=== PATIENT | male | born 1940 ===

== ENCOUNTER 2017-04-16 05:11 | Inpatient (IN) | payer MEDICAID, OTHER ==
[~2017-04-16] VITALS: Ht 172.7 cm; Wt 94.5 kg
[2017-04-16] VITALS (16 sets, daily range): BP systolic 95–153; BP diastolic 50–82
[2017-04-16 09:24] LABS: FIO2 ABG 40; HCO3 ABG 25 mmol/L (21-28); PCO2 ABG 33 mmHg (35-46); PH ABG 7.51 (7.35-7.45); PO2 ABG 74 mmHg (65-108); SAT O2 ABG 96 % (92-99)
--- NOTE | 2017-04-16 09:38 | RAD ---
EXAM: Chest one view. HISTORY: Intubated. COMPARISON: None. FINDINGS: A frontal view of the chest is obtained. An endotracheal tube has its tip 4 cm above the violette. A nasogastric tube has its tip below the inferior margin of the field of view. There are no confluent infiltrates. There is no pneumothorax or pleural effusion. The heart is not enlarged. There is a calcified granuloma on the left. IMPRESSION: 1. No confluent infiltrates.
--- NOTE | 2017-04-16 09:41 | PDOC ---
Provider Note Provider Note [id number] acute resp fail ams cont vent support until more alert ZE ARIZMENDI MD Apr 16, 2017 09:41
[2017-04-16] MEDS ORDERED: MONT10TA9 PO (10:23)
[2017-04-16] MEDS ORDERED: LEVE500T56 PO (10:23)
[2017-04-16] MEDS ORDERED: CETI10TA22 PO (10:23)
[2017-04-16] MEDS ORDERED: DIVA500T2 PO (10:23)
[2017-04-16] MEDS ORDERED: AMLO5TAB2 PO (10:23)
[2017-04-16] MEDS ORDERED: IBUP-1027 PO (10:23)
[2017-04-16] MEDS ORDERED: ALBUTEROL SULFATE 2.5 MG/3 ML NEBU. NEB PRN (11:00)
[2017-04-16] MEDS ORDERED: HYDROcodone/APAP 5/325MG 1 TAB TABLET PO PRN (11:00)
[2017-04-16] MEDS ORDERED: ONDANSETRON PF 4 MG/2 ML VIAL. IV PRN (11:00)
[2017-04-16] MEDS ORDERED: ACETAMINOPHEN 325 MG TABLET. PO PRN (11:00)
--- NOTE | 2017-04-16 11:01 | PDOC1 ---
History and Physical Current Medications Current Medications Current Medications Medications (Trade) Dose Ordered Sig/Abraham Start Time Stop Time Status Last Admin Dose Admin Lorazepam (Ativan) 1 mg PRN Q1HR PRN 04/16/17 09:30 Allergies Allergies Allergies Coded Allergies Type Severity Reaction Last Updated Verified No Known Drug Allergies 04/16/17 No ROS Review of System not able to obtain due to severity. Physical Exam Physical Exam GEN.: on Mechanical ventilation sedated. HEENT: Head is normocephalic, atraumatic NECK: Supple. no JVD LUNGS: Clear to auscultation. normal airflow. HEART: RRR, S1, S2 present. Peripheral pulses intact ABDOMEN: Soft, nontender. Positive bowel sounds. EXTREMITIES: Without any cyanosis. no edema NEUROLOGIC: PSYCHIATRIC: SKIN: no visible rash. Vitals Vitals Vital Signs Date Time Temp Pulse Resp B/P (MAP) Pulse Ox O2 Delivery O2 Flow Rate FiO2 04/16/17 10:00 68 16 133/76 (95) 100 Ventilator 04/16/17 08:10 97.9 97.9 Labs Labs Laboratory Tests Test 04/16/17 09:04 O2 Saturation 96 % (92-99) Arterial Blood pH 7.51 (7.35-7.45) Arterial Blood pCO2 at Patient Temp 33 mmHg (35-46) Arterial Blood pO2 at Patient Temp 74 mmHg (65-108) Arterial Blood HCO3 25 mmol/L (21-28) Arterial Blood Base Excess 3 mmol/L (-3-3) FiO2 40 Laboratory Tests Test 04/16/17 09:04 O2 Saturation 96 % (92-99) Arterial Blood pH 7.51 (7.35-7.45) Arterial Blood pCO2 at Patient Temp 33 mmHg (35-46) Arterial Blood pO2 at Patient Temp 74 mmHg (65-108) Arterial Blood HCO3 25 mmol/L (21-28) Arterial Blood Base Excess 3 mmol/L (-3-3) FiO2 40 VTE Prophylaxis Ordered VTE Prophylaxis Devices: Yes VTE Pharmacological Prophylaxi: No DERIK HESS MD Apr 16, 2017 11:01
--- NOTE | 2017-04-16 11:01 | CONS ---
DATE OF CONSULTATION: 04/16/2017 I was asked to see this 76-year-old gentleman for acute respiratory failure. HISTORY OF PRESENT ILLNESS: The patient is on the ventilator and he is sedated and he is not able to give any information. All of the information was obtained from nursing staff. Apparently, the patient is in long term. He has dementia, Alzheimer's, seizure. He has had mental status changes for the past few days. He was taken to [facility] and was intubated. He was transferred to [facility] for further evaluation. He is currently on the ventilator and he is sedated. In [facility] Emergency Room, the patient's blood pressure was low. The patient was given 3 liters of normal saline. PAST MEDICAL HISTORY: Dementia, Alzheimer's, seizure. ALLERGIES: No known drug allergies. MEDICATIONS: Currently, he is on Versed drip and IV fluid. SOCIAL HISTORY: Not smoking currently. FAMILY HISTORY: Unable to obtain. REVIEW OF SYSTEMS: As mentioned as above. I have discussed the patient with RN and RT. Other systems are otherwise negative. PHYSICAL EXAMINATION: GENERAL: This is a well-developed gentleman. VITAL SIGNS: His O2 saturation on 40% FiO2 is 100%, respiratory rate 14, heart rate 73, blood pressure 137/79. HEENT: Normocephalic, atraumatic. Pupils equal, round, reactive to light. He is orally intubated. Nose is clear. NECK: There is no JVD, lymphadenopathy or thyromegaly. CARDIOVASCULAR: Regular rate and rhythm. PMI is nondisplaced. CHEST: Inspection is normal. LUNGS: Clear to auscultation. There is no wheezing. ABDOMEN: Soft. Bowel sounds are good. There is no mass. EXTREMITIES: There is no edema. LYMPHATICS: There is no lymphadenopathy. NEUROLOGIC: He is sedated. SKIN: Warm. LABORATORY DATA: I reviewed the following lab data. ABG on assist control rate of 14, tidal volume 450, PEEP of 5, FiO2 40%, pH 7.5, pCO2 of 33, pO2 of 74. Chest x-ray shows ET tube is in good position. There is no infiltrate. Rest of the labs are pending. IMPRESSION: 1. Acute respiratory failure, ? etiology. 2. Altered mental status, ? etiology. 3. encephalopathy. 4. Hypotension, ? sepsis. 5. History of seizure disorder. 6. Dementia. 7. Alzheimer's. PLAN AND RECOMMENDATIONS: 1. Titrate FiO2 to keep O2 saturation 94%. 2. Continue ventilator support until the patient is more alert. I did decrease the respiratory rate to 12. 3. Protonix for stress ulcer prophylaxis. 4. Lovenox for DVT prophylaxis. 5. His CT of the head reportedly showed small vessel disease, no acute abnormality. 6. I do recommend panculture, and start Rocephin. May consider Neurology and ID consultation. 7. A.m. ABG and portable chest x-ray. 8. anti sz meds The findings and recommendations were discussed with RN and RT. Thank you very much for allowing me to participate in the care of this very nice gentleman. ZE ARIZMENDI M.D. DR: Robles JOB#: [id number] / [id number] MAGDALENA
[2017-04-16] MEDS ORDERED: DIVALPROEX DELAYED RELEASE 500 MG TABLET.DR. PO SCH (12:00)
[2017-04-16] MEDS ORDERED: levETIRAcetam 500 MG TABLET PO SCH (12:00)
--- NOTE | 2017-04-16 12:38 | HP ---
ADMIT DATE: 04/16/2017 CHIEF COMPLAINT: Altered mental status, hypothermia, bradycardia. HISTORY OF PRESENT ILLNESS: A 76-year-old male patient with prior history of hypertension and dementia, brought to the [facility] ER from [facility] for lethargy, hypothermia, and bradycardia. The patient had a history of seizures, hypertension, dementia, his baseline status is nonverbal; however, he has episodes of agitation. Yesterday, they noted him to have bradycardia, altered loss of consciousness and the patient was cold to touch and decreased response to painful stimuli. Initial DCIS was 6. To protect airway, the patient was intubated and transferred to [facility] for further workup such as Neurology consultation and possible MRI. At the time of my examination this morning, the patient is sedated and intubated and is on mechanical ventilation towards at bedside and discussed with him about his baseline status. PAST MEDICAL HISTORY: Hypertension, dementia, seizures. PAST SURGICAL HISTORY: Not able to obtain. ALLERGIES: NKDA. SOCIAL HISTORY: currently complete his custodial sentences; however, due to his mental status. He is not able to be released from the custodial. REVIEW OF SYSTEMS: Physical exam, please see my electronic H and P. FAMILY HISTORY: Not able to obtain. LABORATORY FINDINGS: CT of the head, no acute finding seen and EKG personally reviewed, sinus bradycardia. ABGs: pH is 7.38, pCO2 32, pO2 is 58 and 21%. Chemistry: BUN is 54, creatinine is 1.1, calcium is 1.24, potassium is 4.5, chloride is 110. Urine drug screen is negative. INR is 1.1, APTT 30. CBC; platelets 78, WBC 2.9, hemoglobin is 11.5, hematocrit is 35.4. ASSESSMENT: 1. Acute metabolic encephalopathy, unclear etiology. ? seizure recurrent. 2. Bradycardia, sinus. 3. Hypothermia, present on admission, dehydration. 4. History of seizures. 5. History of dementia, unknown type. 6. Respiratory failure. PLAN: Currently, the patient is placed in the Critical Care Unit, he is on mechanical ventilation and he is on Versed for sedation. Start him on IV Keppra, consult Neurology. 1. home medications Reviewed and reconciled, his Keppra and valproic will be restarted. 2. Plan to wean off him from sedation and try to extubate if possible. but its difficult today due to his seizure like activity 3. Body temperature has improved. Current temperature is 97.9. 4. No source of infection noted. I will monitor CBC and BMP. 5. Chest x-ray this morning, no infiltrates seen. No obvious source of infection noted and I will appreciate Pulmonology and Neurology recommendations. 6. P.r.n. hydralazine and amlodipine. 7. Prognosis is guarded, as per guards, he does not have any family. d/w RN DERIK HESS MD DR: YUMIKO/huyen JOB#: [id number] / [id number] MAGDALENA
--- NOTE | 2017-04-16 12:49 | ACF ---
Admission Forms Criteria RESPIRATORY FAILURE [facility] Clinical Indications for Admission to Inpatient Care (Place 'X' for any and all applicable criteria): Hospital admission is needed for appropriate care of the patient because of acute respiratory failure or insufficiency as indicated by ANY ONE of the following(1)(2)(3)(4)(5)(6)(7)(8): [X ]I. Mechanical ventilation needed (acute invasive or noninvasive) [ ]II. Severe ventilation deficit as indicated by ANY ONE of the following (9) [ ]a) Respiratory acidosis (pH less than 7.32 and partial pressure of carbon dioxide greater than 40 mm Hg (5.3 kPa)) [ ]b) Partial pressure of carbon dioxide greater than 44 mm Hg (5.9 kPa ) (new) [ ]c) Airflow measurements less than 25% of predicted (eg, peak expiratory flow rate less than 100 L/minute) [ ]d) Forced vital capacity less than 15 mL/kg of ideal body weight, or 50% decrease in vital capacity from baseline [ ]III. Noncardiac pulmonary edema not resolving with rapid emergency treatment (8) [ ]IV. Severe respiratory distress as indicated by ANY ONE of the following: [ ]a) Severe tachypnea (respiratory rate greater than 30, greater than 45 for 6-month-old, greater than 60 for ) [ ]b) Severe hypoxemia (partial pressure of oxygen less than 50 mm Hg ( 6.7 kPa) on greater than 50% oxygen or partial pressure of oxygen to FIO2 ratio less than 200) [ ]c) Mental status deterioration from respiratory disease [ ]V. Airway obstruction or inadequate protection [A](10)(11) The original [employer] content created by [employer] has been revised. The portions of the content which have been revised are identified through the use of italic text or in bold, and [employer] has neither reviewed nor approved the modified material. All other unmodified content is copyright [employer]. Please see references footnoted in the original [employer] edition 2016 Admission Criteria Met?: Yes JORGE LUIS VENEGAS Apr 16, 2017 12:49
[2017-04-16] MEDS: VALPROIC ACID (AS SODIUM SALT) 500 MG in IV NORMAL SALINE 50ML 50 ML IV SCH ×2 (12:53→21:05)
[2017-04-16] MEDS: CETIRIZINE HCL 10 MG TABLET. PO SCH (12:55)
[2017-04-16] MEDS: amLODIPine BESYLATE 5 MG TABLET PO SCH (12:56)
[2017-04-16] MEDS: PANTOPRAZOLE 40 MG TABLET.DR. PO SCH (16:55)
[2017-04-16] MEDS ORDERED: LACOSAMIDE 100 MG in IV NORMAL SALINE 50ML 50 ML IV ONE (17:30)
[2017-04-16] MEDS: MONTELUKAST SODIUM 10 MG TABLET. PO SCH (21:04)
[2017-04-16] MEDS: LACOSAMIDE 100 MG in IV NORMAL SALINE 50ML 50 ML IV SCH (22:58)
[2017-04-17] VITALS (30 sets, daily range): BP systolic 63–144; BP diastolic 44–79
[2017-04-17] MEDS ORDERED: NOREPINEPHRIN PREMIX 250 ML IV PRN (00:45)
[2017-04-17] MEDS ORDERED: MIDAZOLAM PREMIX 100 ML IV PRN (01:00)
[2017-04-17] MEDS ORDERED: IV NORMAL SALINE 1000ML BAG 1,000 ML IV ONE (01:00)
[2017-04-17 05:10] LABS: BASO % 0 % (0-3); EOS % 0 % (0-3); HEMATOCRIT 33.4 % (39.0-53.0); HEMOGLOBIN 10.9 g/dL (13.0-17.5); LYMPH # 1.6 x10^3/uL (1.0-4.8); LYMPH % 29 % (24-48); MEAN CORPUSCULAR HEMOGLOBIN 31 pg (25-35); MEAN CORPUSCULAR HGB CONC 33 g/dL (31-37); MEAN CORPUSCULAR VOLUME 95 fL (79-100); MONO % 6 % (0-9); NEUT % 65 % (31-73); PLATELET COUNT 77 x10^3/uL (140-400); WHITE BLOOD COUNT 5.4 x10^3/uL (4.0-11.0)
[2017-04-17 05:19] LABS: CALCIUM 7.9 mg/dL (8.5-10.1); CREATININE 1.4 mg/dL (0.7-1.3); GFR 49.3; POTASSIUM 3.7 mmol/L (3.5-5.1)
--- NOTE | 2017-04-17 08:10 | PDOC ---
PULMONARY PROGRESS NOTES Subjective on vent, on levo and versed. had sz earlier this am, neuro consulted Vitals Vital Signs Date Time Temp Pulse Resp B/P (MAP) Pulse Ox O2 Delivery O2 Flow Rate FiO2 04/17/17 06:00 80 12 111/57 (75) 100 Ventilator 04/17/17 04:00 98.8 98.8 Comments ros as mentioned as above, discussed w rn, other sys otherwise neg HEENT: Other (nc at perrl, nose clear, orally intubated, neck, no lap, no thyromegaly) Lungs: Crackles Cardiovascular: S1, S2 Abdomen: Soft, Non-tender, Other (no mass) Extremities: No Edema Skin: Warm Labs Laboratory Tests Test 04/16/17 09:00 04/16/17 09:04 04/17/17 03:38 Nasal Screen MRSA (PCR) Negative (Negative) O2 Saturation 96 % (92-99) Arterial Blood pH 7.51 (7.35-7.45) Arterial Blood pCO2 at Patient Temp 33 mmHg (35-46) Arterial Blood pO2 at Patient Temp 74 mmHg (65-108) Arterial Blood HCO3 25 mmol/L (21-28) Arterial Blood Base Excess 3 mmol/L (-3-3) FiO2 40 White Blood Count 5.4 x10^3/uL (4.0-11.0) Red Blood Count 3.50 x10^6/uL (4.30-5.70) Hemoglobin 10.9 g/dL (13.0-17.5) Hematocrit 33.4 % (39.0-53.0) Mean Corpuscular Volume 95 fL (79-100) Mean Corpuscular Hemoglobin 31 pg (25-35) Mean Corpuscular Hemoglobin Concent 33 g/dL (31-37) Red Cell Distribution Width 17.0 % (11.5-14.5) Platelet Count 77 x10^3/uL (140-400) Neutrophils (%) (Auto) 65 % (31-73) Lymphocytes (%) (Auto) 29 % (24-48) Monocytes (%) (Auto) 6 % (0-9) Eosinophils (%) (Auto) 0 % (0-3) Basophils (%) (Auto) 0 % (0-3) Neutrophils # (Auto) 3.5 x10^3uL (1.8-7.7) Lymphocytes # (Auto) 1.6 x10^3/uL (1.0-4.8) Monocytes # (Auto) 0.3 x10^3/uL (0.0-1.1) Eosinophils # (Auto) 0.0 x10^3/uL (0.0-0.7) Basophils # (Auto) 0.0 x10^3/uL (0.0-0.2) Sodium Level 153 mmol/L (136-145) Potassium Level 3.7 mmol/L (3.5-5.1) Chloride Level 119 mmol/L (98-107) Carbon Dioxide Level 27 mmol/L (21-32) Anion Gap 7 (6-14) Blood Urea Nitrogen 38 mg/dL (8-26) Creatinine 1.4 mg/dL (0.7-1.3) Estimated GFR (Cockcroft-Gault) 49.3 Glucose Level 72 mg/dL (70-99) Calcium Level 7.9 mg/dL (8.5-10.1) Laboratory Tests Test 04/16/17 09:00 04/16/17 09:04 04/17/17 03:38 Nasal Screen MRSA (PCR) Negative (Negative) O2 Saturation 96 % (92-99) Arterial Blood pH 7.51 (7.35-7.45) Arterial Blood pCO2 at Patient Temp 33 mmHg (35-46) Arterial Blood pO2 at Patient Temp 74 mmHg (65-108) Arterial Blood HCO3 25 mmol/L (21-28) Arterial Blood Base Excess 3 mmol/L (-3-3) FiO2 40 White Blood Count 5.4 x10^3/uL (4.0-11.0) Red Blood Count 3.50 x10^6/uL (4.30-5.70) Hemoglobin 10.9 g/dL (13.0-17.5) Hematocrit 33.4 % (39.0-53.0) Mean Corpuscular Volume 95 fL (79-100) Mean Corpuscular Hemoglobin 31 pg (25-35) Mean Corpuscular Hemoglobin Concent 33 g/dL (31-37) Red Cell Distribution Width 17.0 % (11.5-14.5) Platelet Count 77 x10^3/uL (140-400) Neutrophils (%) (Auto) 65 % (31-73) Lymphocytes (%) (Auto) 29 % (24-48) Monocytes (%) (Auto) 6 % (0-9) Eosinophils (%) (Auto) 0 % (0-3) Basophils (%) (Auto) 0 % (0-3) Neutrophils # (Auto) 3.5 x10^3uL (1.8-7.7) Lymphocytes # (Auto) 1.6 x10^3/uL (1.0-4.8) Monocytes # (Auto) 0.3 x10^3/uL (0.0-1.1) Eosinophils # (Auto) 0.0 x10^3/uL (0.0-0.7) Basophils # (Auto) 0.0 x10^3/uL (0.0-0.2) Sodium Level 153 mmol/L (136-145) Potassium Level 3.7 mmol/L (3.5-5.1) Chloride Level 119 mmol/L (98-107) Carbon Dioxide Level 27 mmol/L (21-32) Anion Gap 7 (6-14) Blood Urea Nitrogen 38 mg/dL (8-26) Creatinine 1.4 mg/dL (0.7-1.3) Estimated GFR (Cockcroft-Gault) 49.3 Glucose Level 72 mg/dL (70-99) Calcium Level 7.9 mg/dL (8.5-10.1) Medications Active Scripts Medications Dose Route/Sig Max Daily Dose Days Date Category Montelukast Sodium Tablet (Montelukast Sodium) 10 Mg Tablet 10 Mg PO HS 04/16/17 Reported Zyrtec (Cetirizine Hcl) 10 Mg Tablet 10 Tab PO DAILY 04/16/17 Reported Ibuprofen 400 Mg Tablet 400 Mg PO TID 04/16/17 Reported Keppra (Levetiracetam) 500 Mg Tablet 500 Tab PO BID 04/16/17 Reported Depakote (Divalproex Sodium) 500 Mg Tablet.dr 500 Tab PO BID 04/16/17 Reported Amlodipine Besylate 5 Mg Tablet 5 Mg PO DAILY 04/16/17 Reported Comments cxr reviewed, ett ok, no infilt Impression . IMPRESSION: 1. Acute respiratory failure, ? etiology. 2. Altered mental status, ? etiology. 3. encephalopathy. 4. Hypotension, ? sepsis. 5. History of seizure disorder. 6. Dementia. 7. Alzheimer's. 8. tj 9. hyper na Plan . PLAN AND RECOMMENDATIONS: 1. Titrate FiO2 to keep O2 saturation 94%. 2. Continue ventilator support until the patient is more stable. vent setting reviewed. decrease sedation 3. Protonix for stress ulcer prophylaxis. 4. Lovenox for DVT prophylaxis. 5. His CT of the head reportedly showed small vessel disease, no acute abnormality. 6. panculture, and start Rocephin. 7. A.m. ABG and portable chest x-ray. 8. anti sz meds, neuro consulted 9. pressors to keep map 65 The findings and recommendations were discussed with RN and RT. ZE ARIZMENDI MD Apr 17, 2017 08:10
[2017-04-17] MEDS: amLODIPine BESYLATE 5 MG TABLET PO SCH (09:00)
[2017-04-17] MEDS: CETIRIZINE HCL 10 MG TABLET. PO SCH (09:32)
[2017-04-17] MEDS: PANTOPRAZOLE 40 MG TABLET.DR. PO SCH (09:32)
[2017-04-17] MEDS: LACOSAMIDE 100 MG in IV NORMAL SALINE 50ML 50 ML IV SCH ×2 (09:34→21:00)
[2017-04-17] MEDS: VALPROIC ACID (AS SODIUM SALT) 500 MG in IV NORMAL SALINE 50ML 50 ML IV SCH ×2 (09:35→21:10)
--- NOTE | 2017-04-17 11:07 | PDOC2 ---
NEUROLOGY CONSULT Date of Admission Date of Admission Full Report Dictated DATE: 04/17/17 TIME: 11:04 Current Medications Current Medications Current Medications Lorazepam (Ativan) 1 mg PRN Q1HR PRN IV ANXIETY / AGITATION; Start 04/16/17 at 09:30 Acetaminophen (Tylenol) 325 mg PRN Q6HRS PRN PO MILD PAIN / TEMP; Start at 11:00 Acetaminophen/ Hydrocodone Bitart (Lortab 5/325) 1 tab PRN Q6HRS PRN PO MODERATE TO SEVERE PAIN; Start 04/16/17 at 11:00 Hydralazine HCl (Apresoline) 10 mg PRN Q4HRS PRN IVP ELEVATED BP, SEE COMMENTS ; Start 04/16/17 at 11:00 Ondansetron HCl (Zofran) 4 mg PRN Q8HRS PRN IV NAUSEA/VOMITING; Start 04/16/17 at 11:00 Albuterol Sulfate (Ventolin Neb Soln) 2.5 mg PRN Q4HRS PRN NEB SHORTNESS OF BREATH; Start 04/16/17 at 11:00 Amlodipine Besylate (Norvasc) 5 mg DAILY PO Last administered on 04/16/17 12: 56; Start 04/16/17 at 12:00 Cetirizine HCl (ZyrTEC) 10 mg DAILY PO Last administered on 04/17/17 09:32; Start 04/16/17 at 12:00 Divalproex Sodium (Depakote) 500 mg BID PO ; Start 04/16/17 at 12:00; Status Cancel Levetiracetam (Keppra) 500 mg BID PO ; Start 04/16/17 at 12:00; Stop 04/16/17 at 12:13; Status DC Montelukast Sodium (Singulair) 10 mg HS PO Last administered on 04/16/17 21:04 ; Start 04/16/17 at 21:00 Levetiracetam (Keppra) 500 mg 1X ONCE PO ; Start 04/17/17 at 12:00; Stop at 12:00; Status DC Levetiracetam 500 mg/Sodium Chloride 100 ml @ 400 mls/hr Q12HR IV Last administered on 04/16/17 12:52; Start 04/16/17 at 12:00; Stop 04/16/17 at 16:28 ; Status DC Valproic Acid 500 mg/Sodium Chloride 55 ml @ 55 mls/hr Q12HR IV Last administered on 04/17/17 09:35; Start 04/16/17 at 12:00 Levetiracetam 1000 mg/Sodium Chloride 110 ml @ 400 mls/hr Q12H IV Last administered on 04/17/17 09:35; Start 04/16/17 at 21:30; Stop 04/17/17 at 10:35 ; Status DC Levetiracetam 500 mg/Sodium Chloride 100 ml @ 400 mls/hr 1X ONCE IV Last administered on 04/16/17 16:54; Start 04/16/17 at 17:00; Stop 04/16/17 at 17:14 ; Status DC Lacosamide 100 mg/ Sodium Chloride 60 ml @ 120 mls/hr BID IV Last administered on 04/17/17 09:34; Start 04/16/17 at 21:00 Lacosamide 100 mg/ Sodium Chloride 60 ml @ 120 mls/hr 1X ONCE IV Last administered on 04/16/17 16:55; Start 04/16/17 at 17:30; Stop 04/16/17 at 17:59 ; Status DC Pantoprazole Sodium (Protonix) 40 mg DAILYAC PO Last administered on 04/17/17 09:32; Start 04/16/17 at 17:00 Sodium Chloride 1,000 ml @ 1,000 mls/hr 1X ONCE IV Last administered on 00:48; Start 04/17/17 at 01:00; Stop 04/17/17 at 01:59; Status DC Norepinephrine Bitartrate 250 ml @ 0 mls/hr CONT PRN IV SEE I/O RECORD Last administered on 04/17/17 01:25; Start 04/17/17 at 00:45 Midazolam HCl 100 ml @ 0 mls/hr CONT PRN IV SEE I/O RECORD; Start 04/17/17 at 01:00 Ceftriaxone Sodium 1 gm/ Sodium Chloride 50 ml @ 100 mls/hr Q24H IV Last administered on 04/17/17 09:36; Start 04/17/17 at 09:00 Levetiracetam 750 mg/Sodium Chloride 107.5 ml @ 440 mls/hr Q12HR IV ; Start at 21:00 Active Scripts Active Reported Montelukast Sodium Tablet (Montelukast Sodium) 10 Mg Tablet 10 Mg PO HS Zyrtec (Cetirizine Hcl) 10 Mg Tablet 10 Tab PO DAILY Ibuprofen 400 Mg Tablet 400 Mg PO TID Keppra (Levetiracetam) 500 Mg Tablet 500 Tab PO BID Depakote (Divalproex Sodium) 500 Mg Tablet.dr 500 Tab PO BID Amlodipine Besylate 5 Mg Tablet 5 Mg PO DAILY Allergies Allergies: Coded Allergies: No Known Drug Allergies (Unverified , 04/16/17) Vitals VITALS Vital Signs Date Time Temp Pulse Resp B/P (MAP) Pulse Ox O2 Delivery O2 Flow Rate FiO2 04/17/17 10:00 84 12 106/59 (75) 100 Ventilator 04/17/17 07:00 98.0 98.0 Labs Labs Laboratory Tests Test 04/16/17 09:00 04/16/17 09:04 04/17/17 03:38 Nasal Screen MRSA (PCR) Negative (Negative) O2 Saturation 96 % (92-99) Arterial Blood pH 7.51 (7.35-7.45) Arterial Blood pCO2 at Patient Temp 33 mmHg (35-46) Arterial Blood pO2 at Patient Temp 74 mmHg (65-108) Arterial Blood HCO3 25 mmol/L (21-28) Arterial Blood Base Excess 3 mmol/L (-3-3) FiO2 40 White Blood Count 5.4 x10^3/uL (4.0-11.0) Red Blood Count 3.50 x10^6/uL (4.30-5.70) Hemoglobin 10.9 g/dL (13.0-17.5) Hematocrit 33.4 % (39.0-53.0) Mean Corpuscular Volume 95 fL (79-100) Mean Corpuscular Hemoglobin 31 pg (25-35) Mean Corpuscular Hemoglobin Concent 33 g/dL (31-37) Red Cell Distribution Width 17.0 % (11.5-14.5) Platelet Count 77 x10^3/uL (140-400) Neutrophils (%) (Auto) 65 % (31-73) Lymphocytes (%) (Auto) 29 % (24-48) Monocytes (%) (Auto) 6 % (0-9) Eosinophils (%) (Auto) 0 % (0-3) Basophils (%) (Auto) 0 % (0-3) Neutrophils # (Auto) 3.5 x10^3uL (1.8-7.7) Lymphocytes # (Auto) 1.6 x10^3/uL (1.0-4.8) Monocytes # (Auto) 0.3 x10^3/uL (0.0-1.1) Eosinophils # (Auto) 0.0 x10^3/uL (0.0-0.7) Basophils # (Auto) 0.0 x10^3/uL (0.0-0.2) Sodium Level 153 mmol/L (136-145) Potassium Level 3.7 mmol/L (3.5-5.1) Chloride Level 119 mmol/L (98-107) Carbon Dioxide Level 27 mmol/L (21-32) Anion Gap 7 (6-14) Blood Urea Nitrogen 38 mg/dL (8-26) Creatinine 1.4 mg/dL (0.7-1.3) Estimated GFR (Cockcroft-Gault) 49.3 Glucose Level 72 mg/dL (70-99) Calcium Level 7.9 mg/dL (8.5-10.1) Laboratory Tests Test 04/17/17 03:38 White Blood Count 5.4 x10^3/uL (4.0-11.0) Red Blood Count 3.50 x10^6/uL (4.30-5.70) Hemoglobin 10.9 g/dL (13.0-17.5) Hematocrit 33.4 % (39.0-53.0) Mean Corpuscular Volume 95 fL (79-100) Mean Corpuscular Hemoglobin 31 pg (25-35) Mean Corpuscular Hemoglobin Concent 33 g/dL (31-37) Red Cell Distribution Width 17.0 % (11.5-14.5) Platelet Count 77 x10^3/uL (140-400) Neutrophils (%) (Auto) 65 % (31-73) Lymphocytes (%) (Auto) 29 % (24-48) Monocytes (%) (Auto) 6 % (0-9) Eosinophils (%) (Auto) 0 % (0-3) Basophils (%) (Auto) 0 % (0-3) Neutrophils # (Auto) 3.5 x10^3uL (1.8-7.7) Lymphocytes # (Auto) 1.6 x10^3/uL (1.0-4.8) Monocytes # (Auto) 0.3 x10^3/uL (0.0-1.1) Eosinophils # (Auto) 0.0 x10^3/uL (0.0-0.7) Basophils # (Auto) 0.0 x10^3/uL (0.0-0.2) Sodium Level 153 mmol/L (136-145) Potassium Level 3.7 mmol/L (3.5-5.1) Chloride Level 119 mmol/L (98-107) Carbon Dioxide Level 27 mmol/L (21-32) Anion Gap 7 (6-14) Blood Urea Nitrogen 38 mg/dL (8-26) Creatinine 1.4 mg/dL (0.7-1.3) Estimated GFR (Cockcroft-Gault) 49.3 Glucose Level 72 mg/dL (70-99) Calcium Level 7.9 mg/dL (8.5-10.1) Assessment/Plan Assessment/Plan Patient is a 76-year-old man with advanced dementia and long-standing seizure disorder. He is incarcerated although he completed his sentence but has nowhere to go and is in a [place] [facility]. He was found poorly responsive, cold and bradycardic. He was having seizure-like activity. He is intubated, ventilated and sedated. He has not had any further seizure activity apparent from last night. He was initially seen at [facility] emergency room where a CT scan of the head was negative. He was transferred to [facility]. The neurologic examination was limited because of the sedation. He did appear to have some asymmetry with reflexes present in the right arm but not the left. He did withdraw his arms to nailbed pressure. I added Vimpat yesterday and increase levetiracetam dosage. The Depakote level was 58. If seizures recur with tapering of the Versed then Depakote could be increased. He has slightly impaired renal function so I would not increase the dosage of Keppra. We can consider a follow-up CAT scan of his head tomorrow to evaluate for any interval change. I do not see clinical evidence for central nervous system infection. ANAND REAL MD Apr 17, 2017 11:07
[2017-04-17] MEDS ORDERED: levETIRAcetam 500 MG TABLET PO ONE (12:00)
[2017-04-17] MEDS ORDERED: IV NORMAL SALINE 1000ML BAG 1,000 ML IV SCH (13:00)
--- NOTE | 2017-04-17 13:03 | PDOC ---
PROGRESS NOTES Chief Complaint Chief Complaint cc:AMS A/P 1. Acute metabolic encephalopathy, possible seizure recurrent: On IV Keppra and Vimpat, d/w neurology, repeat CT after extubation, 2. Acute hypoxic respiratory failure: on mechanical ventilation,sedated with versed, CXR no acute process, tube feeds 3. Hypothermia, present on admission: better with bear hugger. 4. RADHA: due to dehydration : on IV NS 5. History of dementia, unknown type. 6. Bradycardia, sinus.: resolved. 7. Hypernatremia: change composition of tube feeds. monitor, hypotonic solution. 8. Thrombocytopenia: monitor. History of Present Illness History of Present Illness no acute episodes no fever on hear hugger. Vitals Vitals Vital Signs Date Time Temp Pulse Resp B/P (MAP) Pulse Ox O2 Delivery O2 Flow Rate FiO2 04/17/17 12:00 Mechanical Ventilator 04/17/17 12:00 97.7 79 12 93/49 (64) 100 97.7 Physical Exam General: Other (sedated and inutabted) Heart: Normal S1, Normal S2 Lungs: Clear, Crackles Abdomen: Normal bowel sounds Extremities: No clubbing Skin: No rashes Labs LABS Laboratory Tests Test 04/17/17 03:38 White Blood Count 5.4 x10^3/uL (4.0-11.0) Red Blood Count 3.50 x10^6/uL (4.30-5.70) Hemoglobin 10.9 g/dL (13.0-17.5) Hematocrit 33.4 % (39.0-53.0) Mean Corpuscular Volume 95 fL (79-100) Mean Corpuscular Hemoglobin 31 pg (25-35) Mean Corpuscular Hemoglobin Concent 33 g/dL (31-37) Red Cell Distribution Width 17.0 % (11.5-14.5) Platelet Count 77 x10^3/uL (140-400) Neutrophils (%) (Auto) 65 % (31-73) Lymphocytes (%) (Auto) 29 % (24-48) Monocytes (%) (Auto) 6 % (0-9) Eosinophils (%) (Auto) 0 % (0-3) Basophils (%) (Auto) 0 % (0-3) Neutrophils # (Auto) 3.5 x10^3uL (1.8-7.7) Lymphocytes # (Auto) 1.6 x10^3/uL (1.0-4.8) Monocytes # (Auto) 0.3 x10^3/uL (0.0-1.1) Eosinophils # (Auto) 0.0 x10^3/uL (0.0-0.7) Basophils # (Auto) 0.0 x10^3/uL (0.0-0.2) Sodium Level 153 mmol/L (136-145) Potassium Level 3.7 mmol/L (3.5-5.1) Chloride Level 119 mmol/L (98-107) Carbon Dioxide Level 27 mmol/L (21-32) Anion Gap 7 (6-14) Blood Urea Nitrogen 38 mg/dL (8-26) Creatinine 1.4 mg/dL (0.7-1.3) Estimated GFR (Cockcroft-Gault) 49.3 Glucose Level 72 mg/dL (70-99) Calcium Level 7.9 mg/dL (8.5-10.1) Comment Review of Relevant I have reviewed the following items campos (where applicable) has been applied. Labs Laboratory Tests Test 04/16/17 09:00 04/16/17 09:04 04/17/17 03:38 Nasal Screen MRSA (PCR) Negative (Negative) O2 Saturation 96 % (92-99) Arterial Blood pH 7.51 (7.35-7.45) Arterial Blood pCO2 at Patient Temp 33 mmHg (35-46) Arterial Blood pO2 at Patient Temp 74 mmHg (65-108) Arterial Blood HCO3 25 mmol/L (21-28) Arterial Blood Base Excess 3 mmol/L (-3-3) FiO2 40 White Blood Count 5.4 x10^3/uL (4.0-11.0) Red Blood Count 3.50 x10^6/uL (4.30-5.70) Hemoglobin 10.9 g/dL (13.0-17.5) Hematocrit 33.4 % (39.0-53.0) Mean Corpuscular Volume 95 fL (79-100) Mean Corpuscular Hemoglobin 31 pg (25-35) Mean Corpuscular Hemoglobin Concent 33 g/dL (31-37) Red Cell Distribution Width 17.0 % (11.5-14.5) Platelet Count 77 x10^3/uL (140-400) Neutrophils (%) (Auto) 65 % (31-73) Lymphocytes (%) (Auto) 29 % (24-48) Monocytes (%) (Auto) 6 % (0-9) Eosinophils (%) (Auto) 0 % (0-3) Basophils (%) (Auto) 0 % (0-3) Neutrophils # (Auto) 3.5 x10^3uL (1.8-7.7) Lymphocytes # (Auto) 1.6 x10^3/uL (1.0-4.8) Monocytes # (Auto) 0.3 x10^3/uL (0.0-1.1) Eosinophils # (Auto) 0.0 x10^3/uL (0.0-0.7) Basophils # (Auto) 0.0 x10^3/uL (0.0-0.2) Sodium Level 153 mmol/L (136-145) Potassium Level 3.7 mmol/L (3.5-5.1) Chloride Level 119 mmol/L (98-107) Carbon Dioxide Level 27 mmol/L (21-32) Anion Gap 7 (6-14) Blood Urea Nitrogen 38 mg/dL (8-26) Creatinine 1.4 mg/dL (0.7-1.3) Estimated GFR (Cockcroft-Gault) 49.3 Glucose Level 72 mg/dL (70-99) Calcium Level 7.9 mg/dL (8.5-10.1) Laboratory Tests Test 04/17/17 03:38 White Blood Count 5.4 x10^3/uL (4.0-11.0) Red Blood Count 3.50 x10^6/uL (4.30-5.70) Hemoglobin 10.9 g/dL (13.0-17.5) Hematocrit 33.4 % (39.0-53.0) Mean Corpuscular Volume 95 fL (79-100) Mean Corpuscular Hemoglobin 31 pg (25-35) Mean Corpuscular Hemoglobin Concent 33 g/dL (31-37) Red Cell Distribution Width 17.0 % (11.5-14.5) Platelet Count 77 x10^3/uL (140-400) Neutrophils (%) (Auto) 65 % (31-73) Lymphocytes (%) (Auto) 29 % (24-48) Monocytes (%) (Auto) 6 % (0-9) Eosinophils (%) (Auto) 0 % (0-3) Basophils (%) (Auto) 0 % (0-3) Neutrophils # (Auto) 3.5 x10^3uL (1.8-7.7) Lymphocytes # (Auto) 1.6 x10^3/uL (1.0-4.8) Monocytes # (Auto) 0.3 x10^3/uL (0.0-1.1) Eosinophils # (Auto) 0.0 x10^3/uL (0.0-0.7) Basophils # (Auto) 0.0 x10^3/uL (0.0-0.2) Sodium Level 153 mmol/L (136-145) Potassium Level 3.7 mmol/L (3.5-5.1) Chloride Level 119 mmol/L (98-107) Carbon Dioxide Level 27 mmol/L (21-32) Anion Gap 7 (6-14) Blood Urea Nitrogen 38 mg/dL (8-26) Creatinine 1.4 mg/dL (0.7-1.3) Estimated GFR (Cockcroft-Gault) 49.3 Glucose Level 72 mg/dL (70-99) Calcium Level 7.9 mg/dL (8.5-10.1) Medications Current Medications Lorazepam (Ativan) 1 mg PRN Q1HR PRN IV ANXIETY / AGITATION; Start 04/16/17 at 09:30 Acetaminophen (Tylenol) 325 mg PRN Q6HRS PRN PO MILD PAIN / TEMP; Start at 11:00 Acetaminophen/ Hydrocodone Bitart (Lortab 5/325) 1 tab PRN Q6HRS PRN PO MODERATE TO SEVERE PAIN; Start 04/16/17 at 11:00 Hydralazine HCl (Apresoline) 10 mg PRN Q4HRS PRN IVP ELEVATED BP, SEE COMMENTS ; Start 04/16/17 at 11:00 Ondansetron HCl (Zofran) 4 mg PRN Q8HRS PRN IV NAUSEA/VOMITING; Start 04/16/17 at 11:00 Albuterol Sulfate (Ventolin Neb Soln) 2.5 mg PRN Q4HRS PRN NEB SHORTNESS OF BREATH; Start 04/16/17 at 11:00 Amlodipine Besylate (Norvasc) 5 mg DAILY PO Last administered on 04/16/17 12: 56; Start 04/16/17 at 12:00 Cetirizine HCl (ZyrTEC) 10 mg DAILY PO Last administered on 04/17/17 09:32; Start 04/16/17 at 12:00 Divalproex Sodium (Depakote) 500 mg BID PO ; Start 04/16/17 at 12:00; Status Cancel Levetiracetam (Keppra) 500 mg BID PO ; Start 04/16/17 at 12:00; Stop 04/16/17 at 12:13; Status DC Montelukast Sodium (Singulair) 10 mg HS PO Last administered on 04/16/17 21:04 ; Start 04/16/17 at 21:00 Levetiracetam (Keppra) 500 mg 1X ONCE PO ; Start 04/17/17 at 12:00; Stop at 12:00; Status DC Levetiracetam 500 mg/Sodium Chloride 100 ml @ 400 mls/hr Q12HR IV Last administered on 04/16/17 12:52; Start 04/16/17 at 12:00; Stop 04/16/17 at 16:28 ; Status DC Valproic Acid 500 mg/Sodium Chloride 55 ml @ 55 mls/hr Q12HR IV Last administered on 04/17/17 09:35; Start 04/16/17 at 12:00 Levetiracetam 1000 mg/Sodium Chloride 110 ml @ 400 mls/hr Q12H IV Last administered on 04/17/17 09:35; Start 04/16/17 at 21:30; Stop 04/17/17 at 10:35 ; Status DC Levetiracetam 500 mg/Sodium Chloride 100 ml @ 400 mls/hr 1X ONCE IV Last administered on 04/16/17 16:54; Start 04/16/17 at 17:00; Stop 04/16/17 at 17:14 ; Status DC Lacosamide 100 mg/ Sodium Chloride 60 ml @ 120 mls/hr BID IV Last administered on 04/17/17 09:34; Start 04/16/17 at 21:00 Lacosamide 100 mg/ Sodium Chloride 60 ml @ 120 mls/hr 1X ONCE IV Last administered on 04/16/17 16:55; Start 04/16/17 at 17:30; Stop 04/16/17 at 17:59 ; Status DC Pantoprazole Sodium (Protonix) 40 mg DAILYAC PO Last administered on 04/17/17 09:32; Start 04/16/17 at 17:00 Sodium Chloride 1,000 ml @ 1,000 mls/hr 1X ONCE IV Last administered on 00:48; Start 04/17/17 at 01:00; Stop 04/17/17 at 01:59; Status DC Norepinephrine Bitartrate 250 ml @ 0 mls/hr CONT PRN IV SEE I/O RECORD Last administered on 04/17/17 01:25; Start 04/17/17 at 00:45 Midazolam HCl 100 ml @ 0 mls/hr CONT PRN IV SEE I/O RECORD; Start 04/17/17 at 01:00 Ceftriaxone Sodium 1 gm/ Sodium Chloride 50 ml @ 100 mls/hr Q24H IV Last administered on 04/17/17 09:36; Start 04/17/17 at 09:00 Levetiracetam 750 mg/Sodium Chloride 107.5 ml @ 440 mls/hr Q12HR IV ; Start at 21:00 Active Scripts Active Reported Montelukast Sodium Tablet (Montelukast Sodium) 10 Mg Tablet 10 Mg PO HS Zyrtec (Cetirizine Hcl) 10 Mg Tablet 10 Tab PO DAILY Ibuprofen 400 Mg Tablet 400 Mg PO TID Keppra (Levetiracetam) 500 Mg Tablet 500 Tab PO BID Depakote (Divalproex Sodium) 500 Mg Tablet.dr 500 Tab PO BID Amlodipine Besylate 5 Mg Tablet 5 Mg PO DAILY Vitals/I & O Vital Sign - Last 24 Hours 04/16/17 04/16/17 04/16/17 04/16/17 13:00 14:00 14:56 15:00 Pulse 62 62 82 Resp 12 12 12 B/P (MAP) 136/76 (96) 147/76 (99) 132/75 (94) Pulse Ox 100 100 100 100 O2 Delivery Ventilator Ventilator Ventilator Ventilator 6/17/17 6/17/17 6/17/17 6/17/17 16:00 16:00 16:55 17:00 Pulse 74 76 Resp 14 14 B/P (MAP) 135/82 (99) 112/60 (77) Pulse Ox 100 100 100 O2 Delivery Mechanical Ventilator Ventilator Ventilator Ventilator 04/16/17 04/16/17 04/16/17 04/16/17 18:00 19:00 20:00 20:00 Temp 97.3 97.7 97.3 97.7 Pulse 78 82 Resp 14 12 12 B/P (MAP) 105/62 (76) 95/50 (65) 96/52 (67) Pulse Ox 100 100 100 O2 Delivery Ventilator Ventilator Mechanical Ventilator Ventilator 04/16/17 04/16/17 04/16/17 04/16/17 20:07 21:00 22:00 23:00 Pulse 94 94 95 Resp 12 12 12 B/P (MAP) 106/57 (73) 106/61 (76) 96/54 (68) Pulse Ox 100 100 100 100 O2 Delivery Ventilator Ventilator Ventilator Ventilator 04/16/17 04/16/17 04/17/17 04/17/17 23:19 23:59 00:00 00:30 Temp 98.4 98.4 Pulse 90 Resp 12 B/P (MAP) 91/53 (66) 63/44 (50) Pulse Ox 100 100 O2 Delivery Ventilator Mechanical Ventilator Ventilator 04/17/17 04/17/17 04/17/17 04/17/17 01:00 01:15 01:45 02:00 Pulse 82 90 Resp 12 12 B/P (MAP) 72/44 (53) 75/45 (55) 127/64 (85) 122/67 (85) Pulse Ox 100 100 O2 Delivery Ventilator Ventilator 04/17/17 04/17/17 04/17/17 04/17/17 02:15 02:25 03:00 03:36 Pulse 96 Resp 13 B/P (MAP) 118/59 (78) 94/53 (67) Pulse Ox 100 100 100 O2 Delivery Ventilator Ventilator Ventilator 04/17/17 04/17/17 04/17/17 04/17/17 04:00 04:00 04:15 05:00 Temp 98.8 98.8 Pulse 87 80 Resp 12 12 B/P (MAP) 83/51 (62) 81/51 (61) 102/50 (67) Pulse Ox 100 100 O2 Delivery Mechanical Ventilator Ventilator Ventilator 04/17/17 04/17/17 04/17/17 04/17/17 05:27 06:00 07:00 08:00 Temp 98.0 98.0 Pulse 80 78 74 Resp 12 12 12 B/P (MAP) 111/57 (75) 98/54 (69) 115/57 (76) Pulse Ox 100 100 100 100 O2 Delivery Ventilator Ventilator Ventilator Ventilator 04/17/17 04/17/17 04/17/17 04/17/17 08:00 09:00 09:30 10:00 Pulse 80 84 Resp 12 12 B/P (MAP) 118/64 (82) 106/59 (75) Pulse Ox 100 100 100 O2 Delivery Mechanical Ventilator Ventilator Ventilator Ventilator 04/17/17 04/17/17 04/17/17 11:00 12:00 12:00 Temp 97.7 97.7 Pulse 82 79 Resp 12 12 B/P (MAP) 103/57 (72) 93/49 (64) Pulse Ox 100 100 O2 Delivery Ventilator Ventilator Mechanical Ventilator Intake and Output 04/16/17 04/16/17 04/17/17 15:00 23:00 07:00 Intake Total 20 ml 325 ml 1226 ml Output Total 500 ml 40 ml 300 ml Balance -480 ml 285 ml 926 ml DERIK HESS MD Apr 17, 2017 13:03
[2017-04-17 14:42] LABS: BILIRUBIN,URINE NEGATIVE (NEG); GLUCOSE,URINE NEGATIVE (NEG); NITRITE,URINE NEGATIVE (NEG); PROTEIN,URINE NEGATIVE (NEG-TRACE); UROBILINOGEN,URINE 0.2 mg/dL (0.2 mg/dL)
[2017-04-17 14:43] LABS: BACTERIA,URINE 0 /HPF (0-FEW); RBC,URINE 0 /HPF (0-2); WBC,URINE 0 /HPF (0-4)
[2017-04-17] MEDS: IV DEXTROSE 5% - 0.9 % NACL 1,000 ML IV SCH (20:38)
[2017-04-17] MEDS: MONTELUKAST SODIUM 10 MG TABLET. PO SCH (21:00)
[2017-04-18] VITALS (24 sets, daily range): BP systolic 105–178; BP diastolic 56–97
--- NOTE | 2017-04-18 00:25 | CONS ---
DATE OF CONSULTATION: 04/17/2017 REFERRING PHYSICIAN: Dr. Silverio. REASON FOR CONSULTATION: Status epilepticus and unresponsiveness. HISTORY OF PRESENT ILLNESS: The patient is a 76-year-old incarcerated man who was found unresponsive. He has a history of hypertension and dementia. He was initially taken to [facility] Emergency Room from [facility]. He had hypothermia, lethargy and bradycardia. He does have a history of seizures and has been maintained on Keppra and Depakote. On 04/15/2017, he was noted to have bradycardia and altered consciousness and was cold to touch. He had decreased responsiveness to painful stimulation. To protect his airways, he was intubated and transferred to [facility] for further investigation. He is presently in the Intensive Care Unit, heavily sedated. He underwent a CT scan of the head at [facility], which was negative for an acute process. It revealed evidence of atrophy and small vessel disease. The nurses noted that he was having some shaking of one side of his body and then both. With the initiation and also the adjustment of midazolam, the shaking resolved. His dosages of Keppra have been increased. Depakote has been continued and Vimpat has been initiated for seizure prevention. He has not had any further shaking since Vimpat was initiated last evening. PAST MEDICAL HISTORY: 1. Hypertension. 2. Dementia. 3. Seizure disorder. ALLERGIES: No known allergies to drugs. MEDICATIONS PRIOR TO ADMISSION: Amlodipine 5 mg, cetirizine 10 mg, Depakote 500 mg twice per day, ibuprofen 400 mg 3 times per day, Keppra 500 mg twice per day and montelukast 10 mg. FAMILY HISTORY: Not obtainable. SOCIAL HISTORY: He is incarcerated, but completed his sentence. He is a chowdhury of the [facility] and due to his mental status, he was not able to be released from the facility. REVIEW OF SYSTEMS: Not obtainable. PHYSICAL EXAMINATION: VITAL SIGNS: The blood pressure was 111/57, pulse was 80, respirations 12 and temperature 98.8 degrees Fahrenheit. Oximetry was 100% on the ventilator. GENERAL: He was sedated with midazolam at 2 mg an hour. He was intubated. He did not open his eyes to stimulation. Noxious stimulation did not provoke any alerting with eye opening. He did not respond to visual threat when eyes were held open. When held open, his eyes stared, but did not focus. He did not respond to loud clap. Pupils were 2 mm. Funduscopic exam was not possible. Corneal reflex was present. Oculocephalic reflex was partially present. His face appeared symmetric. The neck was not stiff. Muscle bulk was symmetric. Tone was not spastic or rigid, but seemed diminished in all extremities. He did not have spontaneous movement. Reflexes absent in the left upper extremity and in both knees and ankles, but present at 1/4 in the right upper extremity. Coordination testing was not possible. Nail bed pressure in the upper extremities did provoke some withdrawal response. He had some withdrawal response in the right foot, but not the left. The toe nails were very thickened and made this response much more difficult to provoke. Gait was not testable. Auscultation of the carotid arteries did not reveal a bruit. Heart rhythm was regular. Peripheral pulses were 2/4 in the upper extremities at the wrists. There was no edema or cyanosis. LABORATORY DATA: Review of laboratory data, the CBC revealed a normal white blood cell count. The hemoglobin was low at 10.9 and hematocrit at 33.4. The platelet count was low at 77. Sodium was elevated at 153 and chloride at 119. Potassium and CO2 were normal. BUN was 34 and creatinine was 1.4. The GFR calculated at 49.3. Glucose was normal, but calcium was low at 7.9. An arterial blood gas performed this morning revealed a pH of 7.51, pCO2 of 33, pO2 of 74 and bicarbonate of 25. Saturation was 96% on an FiO2 of 40% on the ventilator. Nasal screen for MRSA was negative. Chest x-ray was performed yesterday morning revealing no confluent infiltrates. IMPRESSION: The patient is a 76-year-old man who has been incarcerated a long time and has been released, but has nowhere to go because he is a chowdhury of the [facility] and has dementia. He became unresponsive and had activity, which appeared to be seizure to the observers. He has been maintained on Depakote and Keppra. He has had no further seizure activity with adjustment of the Keppra dosage and the addition of Vimpat. All of these medications are being given intravenously. His kidney function is diminished, so I have reduced the dosage of Keppra beginning with tonight's dosage from 1000 mg to 750 mg every 12 hours. I do see some focal findings with perhaps increased reflexes on the right and absent on the left. The CAT scan did not reveal evidence of stroke, but it may take up to 3 days for this to be revealed. RECOMMENDATIONS: I discussed with the nurse attempting to gradually taper the midazolam off. She will contact me should there be further seizure activity. I will continue the current anticonvulsants with Vimpat 100 mg IV twice per day, levetiracetam 750 mg IV twice per day and Depakote 500 mg twice per day. We can always increase the dosage of Depakote if there is breakthrough seizure. I would consider repeating the CAT scan tomorrow to allow enough of an interval change. This could be repeated if he does not show improvement or if there is still focality of the examination. I would continue with underlying supportive care. At this point, there is no evidence of infection that would suggest the need for a lumbar puncture. I appreciate being involved in his care. ANAND REAL MD DR: LEEANNA/huyen JOB#: [id number] / [id number] DERIK Brown MD
[2017-04-18] MEDS: IV DEXTROSE 5% - 0.9 % NACL 1,000 ML IV SCH ×2 (02:35→20:42)
[2017-04-18 05:19] LABS: CALCIUM 8.1 mg/dL (8.5-10.1); CREATININE 1.3 mg/dL (0.7-1.3); GFR 53.7; POTASSIUM 3.5 mmol/L (3.5-5.1)
[2017-04-18 06:27] LABS: BASO % 0 % (0-3); EOS % 0 % (0-3); HEMATOCRIT 30.6 % (39.0-53.0); HEMOGLOBIN 10.3 g/dL (13.0-17.5); LYMPH # 1.3 x10^3/uL (1.0-4.8); LYMPH % 21 % (24-48); MEAN CORPUSCULAR HEMOGLOBIN 32 pg (25-35); MEAN CORPUSCULAR HGB CONC 34 g/dL (31-37); MEAN CORPUSCULAR VOLUME 94 fL (79-100); MONO % 7 % (0-9); NEUT % 72 % (31-73); PLATELET COUNT 56 x10^3/uL (140-400); RED BLOOD COUNT 3.26 x10^6/uL (4.30-5.70); RED CELL DISTRIBUTION WIDTH 16.9 % (11.5-14.5); WHITE BLOOD COUNT 6.2 x10^3/uL (4.0-11.0)
[2017-04-18] MEDS: PANTOPRAZOLE 40 MG TABLET.DR. PO SCH (07:30)
[2017-04-18 08:24] LABS: PCO2 ABG 40 mmHg (35-46); PH ABG 7.35 (7.35-7.45); PO2 ABG 174 mmHg (65-108)
[2017-04-18 08:25] LABS: FIO2 ABG 40; HCO3 ABG 22 mmol/L (21-28); SAT O2 ABG 99 % (92-99)
[2017-04-18] MEDS: amLODIPine BESYLATE 5 MG TABLET PO SCH (08:30)
[2017-04-18] MEDS: CETIRIZINE HCL 10 MG TABLET. PO SCH (08:30)
[2017-04-18] MEDS: VALPROIC ACID (AS SODIUM SALT) 500 MG in IV NORMAL SALINE 50ML 50 ML IV SCH ×2 (09:10→20:40)
[2017-04-18] MEDS: LACOSAMIDE 100 MG in IV NORMAL SALINE 50ML 50 ML IV SCH ×2 (09:10→20:39)
--- NOTE | 2017-04-18 09:11 | RAD ---
Indication respiratory failure. A single view of the chest was obtained and is compared to an examination 2 days previously. The heart and pulmonary vessels appear within normal limits. There is some minimal volume loss in the left lower lobe. This likely reflects atelectasis. Pneumonia is not entirely excluded. The right lung is clear. There is no pleural fluid. There is no pneumothorax. Nasogastric tube has its tip in the fundus of the stomach. Endotracheal tube is appropriately positioned above the violette. IMPRESSION: Appropriately positioned endotracheal and nasogastric tubes. Modest volume loss at the left lung base likely reflecting atelectasis.
--- NOTE | 2017-04-18 10:04 | PDOC ---
PROGRESS NOTES Chief Complaint Chief Complaint cc:AMS A/P 1. Acute metabolic encephalopathy, possible seizure recurrent: On IV Keppra and Vimpat,, repeat CT after extubation, 2. Acute hypoxic respiratory failure: on mechanical ventilation,sedated with versed, CXR no acute process, tube feeds, 3. GPC bacteremia, POA: add vancomycin to Rocephin, consult ID, Hypothermia, present on admission: resolved, 4. RADHA: due to dehydration : on IV NS 5. History of dementia, unknown type. 6. Bradycardia, sinus.: resolved. 7. Hypernatremia: change composition of tube feeds. monitor, Add hypotonic solution. 8. Thrombocytopenia: monitor. History of Present Illness History of Present Illness d/w RN Bcx positive for GPC Vitals Vitals Vital Signs Date Time Temp Pulse Resp B/P (MAP) Pulse Ox O2 Delivery O2 Flow Rate FiO2 04/18/17 08:00 100 Ventilator 04/18/17 07:00 90 12 113/63 (80) 04/18/17 04:00 98.6 98.6 Physical Exam General: Other (OFF SEDATION, INTUBATED, ) Heart: Normal S1, Normal S2 Lungs: Clear, Crackles Abdomen: Normal bowel sounds Extremities: No clubbing Skin: No rashes Labs LABS Laboratory Tests Test 04/17/17 12:30 04/18/17 03:50 04/18/17 06:10 04/18/17 08:10 Urine Collection Type Unknown Urine Color Yellow Urine Clarity Clear Urine pH 5.0 Urine Specific [place] 1.025 Urine Protein Negative mg/dL (NEG-TRACE) Urine Glucose (UA) Negative mg/dL (NEG) Urine Ketones (Stick) 15 mg/dL (NEG) Urine Blood Negative (NEG) Urine Nitrite Negative (NEG) Urine Bilirubin Negative (NEG) Urine Urobilinogen Dipstick 0.2 mg/dL (0.2 mg/dL) Urine Leukocyte Esterase Small (NEG) Urine RBC 0 /HPF (0-2) Urine WBC 0 /HPF (0-4) Urine Amorphous Sediment Present /HPF Urine Bacteria 0 /HPF (0-FEW) Sodium Level 153 mmol/L (136-145) Potassium Level 3.5 mmol/L (3.5-5.1) Chloride Level 120 mmol/L (98-107) Carbon Dioxide Level 26 mmol/L (21-32) Anion Gap 7 (6-14) Blood Urea Nitrogen 31 mg/dL (8-26) Creatinine 1.3 mg/dL (0.7-1.3) Estimated GFR (Cockcroft-Gault) 53.7 Glucose Level 63 mg/dL (70-99) Calcium Level 8.1 mg/dL (8.5-10.1) White Blood Count 6.2 x10^3/uL (4.0-11.0) Red Blood Count 3.26 x10^6/uL (4.30-5.70) Hemoglobin 10.3 g/dL (13.0-17.5) Hematocrit 30.6 % (39.0-53.0) Mean Corpuscular Volume 94 fL (79-100) Mean Corpuscular Hemoglobin 32 pg (25-35) Mean Corpuscular Hemoglobin Concent 34 g/dL (31-37) Red Cell Distribution Width 16.9 % (11.5-14.5) Platelet Count 56 x10^3/uL (140-400) Neutrophils (%) (Auto) 72 % (31-73) Lymphocytes (%) (Auto) 21 % (24-48) Monocytes (%) (Auto) 7 % (0-9) Eosinophils (%) (Auto) 0 % (0-3) Basophils (%) (Auto) 0 % (0-3) Neutrophils # (Auto) 4.5 x10^3uL (1.8-7.7) Lymphocytes # (Auto) 1.3 x10^3/uL (1.0-4.8) Monocytes # (Auto) 0.4 x10^3/uL (0.0-1.1) Eosinophils # (Auto) 0.0 x10^3/uL (0.0-0.7) Basophils # (Auto) 0.0 x10^3/uL (0.0-0.2) O2 Saturation 99 % (92-99) Arterial Blood pH 7.35 (7.35-7.45) Arterial Blood pCO2 at Patient Temp 40 mmHg (35-46) Arterial Blood pO2 at Patient Temp 174 mmHg (65-108) Arterial Blood HCO3 22 mmol/L (21-28) Arterial Blood Base Excess -4 mmol/L (-3-3) FiO2 40 Comment Review of Relevant I have reviewed the following items campos (where applicable) has been applied. Labs Laboratory Tests Test 04/17/17 03:38 04/17/17 12:30 04/18/17 03:50 04/18/17 06:10 White Blood Count 5.4 x10^3/uL (4.0-11.0) 6.2 x10^3/uL (4.0-11.0) Red Blood Count 3.50 x10^6/uL (4.30-5.70) 3.26 x10^6/uL (4.30-5.70) Hemoglobin 10.9 g/dL (13.0-17.5) 10.3 g/dL (13.0-17.5) Hematocrit 33.4 % (39.0-53.0) 30.6 % (39.0-53.0) Mean Corpuscular Volume 95 fL (79-100) 94 fL (79-100) Mean Corpuscular Hemoglobin 31 pg (25-35) 32 pg (25-35) Mean Corpuscular Hemoglobin Concent 33 g/dL (31-37) 34 g/dL (31-37) Red Cell Distribution Width 17.0 % (11.5-14.5) 16.9 % (11.5-14.5) Platelet Count 77 x10^3/uL (140-400) 56 x10^3/uL (140-400) Neutrophils (%) (Auto) 65 % (31-73) 72 % (31-73) Lymphocytes (%) (Auto) 29 % (24-48) 21 % (24-48) Monocytes (%) (Auto) 6 % (0-9) 7 % (0-9) Eosinophils (%) (Auto) 0 % (0-3) 0 % (0-3) Basophils (%) (Auto) 0 % (0-3) 0 % (0-3) Neutrophils # (Auto) 3.5 x10^3uL (1.8-7.7) 4.5 x10^3uL (1.8-7.7) Lymphocytes # (Auto) 1.6 x10^3/uL (1.0-4.8) 1.3 x10^3/uL (1.0-4.8) Monocytes # (Auto) 0.3 x10^3/uL (0.0-1.1) 0.4 x10^3/uL (0.0-1.1) Eosinophils # (Auto) 0.0 x10^3/uL (0.0-0.7) 0.0 x10^3/uL (0.0-0.7) Basophils # (Auto) 0.0 x10^3/uL (0.0-0.2) 0.0 x10^3/uL (0.0-0.2) Sodium Level 153 mmol/L (136-145) 153 mmol/L (136-145) Potassium Level 3.7 mmol/L (3.5-5.1) 3.5 mmol/L (3.5-5.1) Chloride Level 119 mmol/L (98-107) 120 mmol/L (98-107) Carbon Dioxide Level 27 mmol/L (21-32) 26 mmol/L (21-32) Anion Gap 7 (6-14) 7 (6-14) Blood Urea Nitrogen 38 mg/dL (8-26) 31 mg/dL (8-26) Creatinine 1.4 mg/dL (0.7-1.3) 1.3 mg/dL (0.7-1.3) Estimated GFR (Cockcroft-Gault) 49.3 53.7 Glucose Level 72 mg/dL (70-99) 63 mg/dL (70-99) Calcium Level 7.9 mg/dL (8.5-10.1) 8.1 mg/dL (8.5-10.1) Urine Collection Type Unknown Urine Color Yellow Urine Clarity Clear Urine pH 5.0 Urine Specific [place] 1.025 Urine Protein Negative mg/dL (NEG-TRACE) Urine Glucose (UA) Negative mg/dL (NEG) Urine Ketones (Stick) 15 mg/dL (NEG) Urine Blood Negative (NEG) Urine Nitrite Negative (NEG) Urine Bilirubin Negative (NEG) Urine Urobilinogen Dipstick 0.2 mg/dL (0.2 mg/dL) Urine Leukocyte Esterase Small (NEG) Urine RBC 0 /HPF (0-2) Urine WBC 0 /HPF (0-4) Urine Amorphous Sediment Present /HPF Urine Bacteria 0 /HPF (0-FEW) Test 04/18/17 08:10 O2 Saturation 99 % (92-99) Arterial Blood pH 7.35 (7.35-7.45) Arterial Blood pCO2 at Patient Temp 40 mmHg (35-46) Arterial Blood pO2 at Patient Temp 174 mmHg (65-108) Arterial Blood HCO3 22 mmol/L (21-28) Arterial Blood Base Excess -4 mmol/L (-3-3) FiO2 40 Laboratory Tests Test 04/17/17 12:30 04/18/17 03:50 04/18/17 06:10 04/18/17 08:10 Urine Collection Type Unknown Urine Color Yellow Urine Clarity Clear Urine pH 5.0 Urine Specific [place] 1.025 Urine Protein Negative mg/dL (NEG-TRACE) Urine Glucose (UA) Negative mg/dL (NEG) Urine Ketones (Stick) 15 mg/dL (NEG) Urine Blood Negative (NEG) Urine Nitrite Negative (NEG) Urine Bilirubin Negative (NEG) Urine Urobilinogen Dipstick 0.2 mg/dL (0.2 mg/dL) Urine Leukocyte Esterase Small (NEG) Urine RBC 0 /HPF (0-2) Urine WBC 0 /HPF (0-4) Urine Amorphous Sediment Present /HPF Urine Bacteria 0 /HPF (0-FEW) Sodium Level 153 mmol/L (136-145) Potassium Level 3.5 mmol/L (3.5-5.1) Chloride Level 120 mmol/L (98-107) Carbon Dioxide Level 26 mmol/L (21-32) Anion Gap 7 (6-14) Blood Urea Nitrogen 31 mg/dL (8-26) Creatinine 1.3 mg/dL (0.7-1.3) Estimated GFR (Cockcroft-Gault) 53.7 Glucose Level 63 mg/dL (70-99) Calcium Level 8.1 mg/dL (8.5-10.1) White Blood Count 6.2 x10^3/uL (4.0-11.0) Red Blood Count 3.26 x10^6/uL (4.30-5.70) Hemoglobin 10.3 g/dL (13.0-17.5) Hematocrit 30.6 % (39.0-53.0) Mean Corpuscular Volume 94 fL (79-100) Mean Corpuscular Hemoglobin 32 pg (25-35) Mean Corpuscular Hemoglobin Concent 34 g/dL (31-37) Red Cell Distribution Width 16.9 % (11.5-14.5) Platelet Count 56 x10^3/uL (140-400) Neutrophils (%) (Auto) 72 % (31-73) Lymphocytes (%) (Auto) 21 % (24-48) Monocytes (%) (Auto) 7 % (0-9) Eosinophils (%) (Auto) 0 % (0-3) Basophils (%) (Auto) 0 % (0-3) Neutrophils # (Auto) 4.5 x10^3uL (1.8-7.7) Lymphocytes # (Auto) 1.3 x10^3/uL (1.0-4.8) Monocytes # (Auto) 0.4 x10^3/uL (0.0-1.1) Eosinophils # (Auto) 0.0 x10^3/uL (0.0-0.7) Basophils # (Auto) 0.0 x10^3/uL (0.0-0.2) O2 Saturation 99 % (92-99) Arterial Blood pH 7.35 (7.35-7.45) Arterial Blood pCO2 at Patient Temp 40 mmHg (35-46) Arterial Blood pO2 at Patient Temp 174 mmHg (65-108) Arterial Blood HCO3 22 mmol/L (21-28) Arterial Blood Base Excess -4 mmol/L (-3-3) FiO2 40 Microbiology 04/17/17 Blood Culture - Preliminary, Resulted NO GROWTH AFTER 1 DAY Medications Current Medications Lorazepam (Ativan) 1 mg PRN Q1HR PRN IV ANXIETY / AGITATION; Start 04/16/17 at 09:30 Acetaminophen (Tylenol) 325 mg PRN Q6HRS PRN PO MILD PAIN / TEMP; Start at 11:00 Acetaminophen/ Hydrocodone Bitart (Lortab 5/325) 1 tab PRN Q6HRS PRN PO MODERATE TO SEVERE PAIN; Start 04/16/17 at 11:00 Hydralazine HCl (Apresoline) 10 mg PRN Q4HRS PRN IVP ELEVATED BP, SEE COMMENTS ; Start 04/16/17 at 11:00 Ondansetron HCl (Zofran) 4 mg PRN Q8HRS PRN IV NAUSEA/VOMITING; Start 04/16/17 at 11:00 Albuterol Sulfate (Ventolin Neb Soln) 2.5 mg PRN Q4HRS PRN NEB SHORTNESS OF BREATH; Start 04/16/17 at 11:00 Amlodipine Besylate (Norvasc) 5 mg DAILY PO Last administered on 04/16/17 12: 56; Start 04/16/17 at 12:00 Cetirizine HCl (ZyrTEC) 10 mg DAILY PO Last administered on 04/17/17 09:32; Start 04/16/17 at 12:00 Divalproex Sodium (Depakote) 500 mg BID PO ; Start 04/16/17 at 12:00; Status Cancel Levetiracetam (Keppra) 500 mg BID PO ; Start 04/16/17 at 12:00; Stop 04/16/17 at 12:13; Status DC Montelukast Sodium (Singulair) 10 mg HS PO Last administered on 04/16/17 21:04 ; Start 04/16/17 at 21:00 Levetiracetam (Keppra) 500 mg 1X ONCE PO ; Start 04/17/17 at 12:00; Stop at 12:00; Status DC Levetiracetam 500 mg/Sodium Chloride 100 ml @ 400 mls/hr Q12HR IV Last administered on 04/16/17 12:52; Start 04/16/17 at 12:00; Stop 04/16/17 at 16:28 ; Status DC Valproic Acid 500 mg/Sodium Chloride 55 ml @ 55 mls/hr Q12HR IV Last administered on 04/18/17 09:10; Start 04/16/17 at 12:00 Levetiracetam 1000 mg/Sodium Chloride 110 ml @ 400 mls/hr Q12H IV Last administered on 04/17/17 09:35; Start 04/16/17 at 21:30; Stop 04/17/17 at 10:35 ; Status DC Levetiracetam 500 mg/Sodium Chloride 100 ml @ 400 mls/hr 1X ONCE IV Last administered on 04/16/17 16:54; Start 04/16/17 at 17:00; Stop 04/16/17 at 17:14 ; Status DC Lacosamide 100 mg/ Sodium Chloride 60 ml @ 120 mls/hr BID IV Last administered on 04/18/17 09:10; Start 04/16/17 at 21:00 Lacosamide 100 mg/ Sodium Chloride 60 ml @ 120 mls/hr 1X ONCE IV Last administered on 04/16/17 16:55; Start 04/16/17 at 17:30; Stop 04/16/17 at 17:59 ; Status DC Pantoprazole Sodium (Protonix) 40 mg DAILYAC PO Last administered on 04/17/17 09:32; Start 04/16/17 at 17:00 Sodium Chloride 1,000 ml @ 1,000 mls/hr 1X ONCE IV Last administered on 00:48; Start 04/17/17 at 01:00; Stop 04/17/17 at 01:59; Status DC Norepinephrine Bitartrate 250 ml @ 0 mls/hr CONT PRN IV SEE I/O RECORD Last administered on 04/17/17 01:25; Start 04/17/17 at 00:45 Midazolam HCl 100 ml @ 0 mls/hr CONT PRN IV SEE I/O RECORD; Start 04/17/17 at 01:00 Ceftriaxone Sodium 1 gm/ Sodium Chloride 50 ml @ 100 mls/hr Q24H IV Last administered on 04/18/17 09:09; Start 04/17/17 at 09:00 Levetiracetam 750 mg/Sodium Chloride 107.5 ml @ 440 mls/hr Q12HR IV Last administered on 04/18/17 09:09; Start 04/17/17 at 21:00 Sodium Chloride 1,000 ml @ 75 mls/hr [id number] IV ; Start 04/17/17 at 13:00; Stop 04/17/17 at 13:02; Status DC Dextrose/Sodium Chloride 1,000 ml @ 75 mls/hr [id number] IV Last administered on 04/18/17 02:35; Start 04/17/17 at 13:15 Active Scripts Active Reported Montelukast Sodium Tablet (Montelukast Sodium) 10 Mg Tablet 10 Mg PO HS Zyrtec (Cetirizine Hcl) 10 Mg Tablet 10 Tab PO DAILY Ibuprofen 400 Mg Tablet 400 Mg PO TID Keppra (Levetiracetam) 500 Mg Tablet 500 Tab PO BID Depakote (Divalproex Sodium) 500 Mg Tablet.dr 500 Tab PO BID Amlodipine Besylate 5 Mg Tablet 5 Mg PO DAILY Vitals/I & O Vital Sign - Last 24 Hours 04/17/17 04/17/17 04/17/17 04/17/17 11:00 12:00 12:00 13:00 Temp 97.7 97.7 Pulse 82 79 77 Resp 12 12 12 B/P (MAP) 103/57 (72) 93/49 (64) 111/74 (86) Pulse Ox 100 100 100 O2 Delivery Ventilator Ventilator Mechanical Ventilator Ventilator 04/17/17 04/17/17 04/17/17 04/17/17 13:19 14:00 14:15 14:55 Pulse 76 72 74 Resp 12 B/P (MAP) 76/52 (60) 84/47 (59) 94/52 (66) Pulse Ox 100 100 O2 Delivery Ventilator Ventilator 04/17/17 04/17/17 04/17/17 04/17/17 16:00 16:00 17:00 17:42 Temp 97.4 97.4 Pulse 71 73 Resp 12 12 B/P (MAP) 94/52 (66) 144/79 (100) Pulse Ox 100 100 100 O2 Delivery Mechanical Ventilator Ventilator Ventilator Ventilator 04/17/17 04/17/17 04/17/17 04/17/17 18:00 19:00 20:00 20:00 Temp 97.4 97.4 Pulse 72 74 77 Resp 12 12 12 B/P (MAP) 118/60 (79) 99/58 (72) 110/59 (76) Pulse Ox 100 100 100 O2 Delivery Ventilator Ventilator Mechanical Ventilator Ventilator 04/17/17 04/17/17 04/17/17 04/17/17 20:05 21:00 22:00 23:00 Pulse 78 82 83 Resp 12 12 12 B/P (MAP) 100/55 (70) 113/55 (74) 99/58 (72) Pulse Ox 100 100 100 100 O2 Delivery Ventilator Ventilator Ventilator Ventilator 04/17/17 04/18/17 04/18/17 04/18/17 23:35 00:00 00:00 01:00 Temp 98.5 98.5 Pulse 91 91 Resp 12 12 B/P (MAP) 119/63 (81) 116/60 (78) Pulse Ox 100 100 100 O2 Delivery Ventilator Ventilator Mechanical Ventilator Ventilator 04/18/17 04/18/17 04/18/17 04/18/17 01:43 02:00 03:00 03:36 Pulse 88 88 Resp 12 12 B/P (MAP) 114/61 (78) 105/56 (72) Pulse Ox 100 100 100 100 O2 Delivery Ventilator Ventilator Ventilator Ventilator 04/18/17 04/18/17 04/18/17 04/18/17 04:00 04:00 05:00 05:41 Temp 98.6 98.6 Pulse 88 95 Resp 12 12 B/P (MAP) 115/61 (79) 128/67 (87) Pulse Ox 100 100 100 O2 Delivery Mechanical Ventilator Ventilator Ventilator Ventilator 04/18/17 04/18/17 04/18/17 06:00 07:00 08:00 Pulse 90 90 Resp 12 12 B/P (MAP) 117/62 (80) 113/63 (80) Pulse Ox 99 100 100 O2 Delivery Ventilator Ventilator Ventilator Intake and Output 04/17/17 04/17/17 04/18/17 15:00 23:00 07:00 Intake Total 2542 ml 649.2 ml Output Total 400 ml 375 ml Balance 2142 ml 274.2 ml DERIK HESS MD Apr 18, 2017 10:04
[2017-04-18] MEDS ORDERED: VANCOMYCIN 2 GM in IV NORMAL SALINE 500ML BAG 500 ML IV ONE (10:30)
--- NOTE | 2017-04-18 11:48 | PDOC ---
Infectious Disease Note Vital Sign Vital Signs Vital Signs Date Time Temp Pulse Resp B/P (MAP) Pulse Ox O2 Delivery O2 Flow Rate FiO2 04/18/17 11:16 100 Ventilator 04/18/17 11:00 78 12 126/97 (107) 04/18/17 08:00 98.2 98.2 Labs Lab Laboratory Tests Test 04/17/17 12:30 04/18/17 03:50 04/18/17 06:10 04/18/17 08:10 Urine Collection Type Unknown Urine Color Yellow Urine Clarity Clear Urine pH 5.0 Urine Specific [place] 1.025 Urine Protein Negative mg/dL (NEG-TRACE) Urine Glucose (UA) Negative mg/dL (NEG) Urine Ketones (Stick) 15 mg/dL (NEG) Urine Blood Negative (NEG) Urine Nitrite Negative (NEG) Urine Bilirubin Negative (NEG) Urine Urobilinogen Dipstick 0.2 mg/dL (0.2 mg/dL) Urine Leukocyte Esterase Small (NEG) Urine RBC 0 /HPF (0-2) Urine WBC 0 /HPF (0-4) Urine Amorphous Sediment Present /HPF Urine Bacteria 0 /HPF (0-FEW) Sodium Level 153 mmol/L (136-145) Potassium Level 3.5 mmol/L (3.5-5.1) Chloride Level 120 mmol/L (98-107) Carbon Dioxide Level 26 mmol/L (21-32) Anion Gap 7 (6-14) Blood Urea Nitrogen 31 mg/dL (8-26) Creatinine 1.3 mg/dL (0.7-1.3) Estimated GFR (Cockcroft-Gault) 53.7 Glucose Level 63 mg/dL (70-99) Calcium Level 8.1 mg/dL (8.5-10.1) White Blood Count 6.2 x10^3/uL (4.0-11.0) Red Blood Count 3.26 x10^6/uL (4.30-5.70) Hemoglobin 10.3 g/dL (13.0-17.5) Hematocrit 30.6 % (39.0-53.0) Mean Corpuscular Volume 94 fL (79-100) Mean Corpuscular Hemoglobin 32 pg (25-35) Mean Corpuscular Hemoglobin Concent 34 g/dL (31-37) Red Cell Distribution Width 16.9 % (11.5-14.5) Platelet Count 56 x10^3/uL (140-400) Neutrophils (%) (Auto) 72 % (31-73) Lymphocytes (%) (Auto) 21 % (24-48) Monocytes (%) (Auto) 7 % (0-9) Eosinophils (%) (Auto) 0 % (0-3) Basophils (%) (Auto) 0 % (0-3) Neutrophils # (Auto) 4.5 x10^3uL (1.8-7.7) Lymphocytes # (Auto) 1.3 x10^3/uL (1.0-4.8) Monocytes # (Auto) 0.4 x10^3/uL (0.0-1.1) Eosinophils # (Auto) 0.0 x10^3/uL (0.0-0.7) Basophils # (Auto) 0.0 x10^3/uL (0.0-0.2) O2 Saturation 99 % (92-99) Arterial Blood pH 7.35 (7.35-7.45) Arterial Blood pCO2 at Patient Temp 40 mmHg (35-46) Arterial Blood pO2 at Patient Temp 174 mmHg (65-108) Arterial Blood HCO3 22 mmol/L (21-28) Arterial Blood Base Excess -4 mmol/L (-3-3) FiO2 40 Objective Assessment BC + G + cocci, ? contaminant, ID pending Respiratory failure Dementia Encephalopathy Plan Plan of Care cont rocephine and vanc soon to scale down supportive care consider hospice HEAVENLY BOTELLO MD Apr 18, 2017 11:48
--- NOTE | 2017-04-18 15:02 | PDOC ---
PULMONARY PROGRESS NOTES Subjective on vent off sedation since yesterday does not follow commands Vitals Vital Signs Date Time Temp Pulse Resp B/P (MAP) Pulse Ox O2 Delivery O2 Flow Rate FiO2 04/18/17 14:00 82 12 178/94 (122) 100 Ventilator 04/18/17 12:00 98.1 98.1 HEENT: Other (nc at perrl, nose clear, orally intubated, neck, no lap, no thyromegaly) Lungs: Clear Cardiovascular: S1, S2 Abdomen: Soft, Non-tender, Other Extremities: No Edema Skin: Warm Labs Laboratory Tests Test 04/17/17 03:38 04/17/17 12:30 04/18/17 03:50 04/18/17 06:10 White Blood Count 5.4 x10^3/uL (4.0-11.0) 6.2 x10^3/uL (4.0-11.0) Red Blood Count 3.50 x10^6/uL (4.30-5.70) 3.26 x10^6/uL (4.30-5.70) Hemoglobin 10.9 g/dL (13.0-17.5) 10.3 g/dL (13.0-17.5) Hematocrit 33.4 % (39.0-53.0) 30.6 % (39.0-53.0) Mean Corpuscular Volume 95 fL (79-100) 94 fL (79-100) Mean Corpuscular Hemoglobin 31 pg (25-35) 32 pg (25-35) Mean Corpuscular Hemoglobin Concent 33 g/dL (31-37) 34 g/dL (31-37) Red Cell Distribution Width 17.0 % (11.5-14.5) 16.9 % (11.5-14.5) Platelet Count 77 x10^3/uL (140-400) 56 x10^3/uL (140-400) Neutrophils (%) (Auto) 65 % (31-73) 72 % (31-73) Lymphocytes (%) (Auto) 29 % (24-48) 21 % (24-48) Monocytes (%) (Auto) 6 % (0-9) 7 % (0-9) Eosinophils (%) (Auto) 0 % (0-3) 0 % (0-3) Basophils (%) (Auto) 0 % (0-3) 0 % (0-3) Neutrophils # (Auto) 3.5 x10^3uL (1.8-7.7) 4.5 x10^3uL (1.8-7.7) Lymphocytes # (Auto) 1.6 x10^3/uL (1.0-4.8) 1.3 x10^3/uL (1.0-4.8) Monocytes # (Auto) 0.3 x10^3/uL (0.0-1.1) 0.4 x10^3/uL (0.0-1.1) Eosinophils # (Auto) 0.0 x10^3/uL (0.0-0.7) 0.0 x10^3/uL (0.0-0.7) Basophils # (Auto) 0.0 x10^3/uL (0.0-0.2) 0.0 x10^3/uL (0.0-0.2) Sodium Level 153 mmol/L (136-145) 153 mmol/L (136-145) Potassium Level 3.7 mmol/L (3.5-5.1) 3.5 mmol/L (3.5-5.1) Chloride Level 119 mmol/L (98-107) 120 mmol/L (98-107) Carbon Dioxide Level 27 mmol/L (21-32) 26 mmol/L (21-32) Anion Gap 7 (6-14) 7 (6-14) Blood Urea Nitrogen 38 mg/dL (8-26) 31 mg/dL (8-26) Creatinine 1.4 mg/dL (0.7-1.3) 1.3 mg/dL (0.7-1.3) Estimated GFR (Cockcroft-Gault) 49.3 53.7 Glucose Level 72 mg/dL (70-99) 63 mg/dL (70-99) Calcium Level 7.9 mg/dL (8.5-10.1) 8.1 mg/dL (8.5-10.1) Urine Collection Type Unknown Urine Color Yellow Urine Clarity Clear Urine pH 5.0 Urine Specific [place] 1.025 Urine Protein Negative mg/dL (NEG-TRACE) Urine Glucose (UA) Negative mg/dL (NEG) Urine Ketones (Stick) 15 mg/dL (NEG) Urine Blood Negative (NEG) Urine Nitrite Negative (NEG) Urine Bilirubin Negative (NEG) Urine Urobilinogen Dipstick 0.2 mg/dL (0.2 mg/dL) Urine Leukocyte Esterase Small (NEG) Urine RBC 0 /HPF (0-2) Urine WBC 0 /HPF (0-4) Urine Amorphous Sediment Present /HPF Urine Bacteria 0 /HPF (0-FEW) Test 04/18/17 08:10 O2 Saturation 99 % (92-99) Arterial Blood pH 7.35 (7.35-7.45) Arterial Blood pCO2 at Patient Temp 40 mmHg (35-46) Arterial Blood pO2 at Patient Temp 174 mmHg (65-108) Arterial Blood HCO3 22 mmol/L (21-28) Arterial Blood Base Excess -4 mmol/L (-3-3) FiO2 40 Laboratory Tests Test 04/18/17 03:50 04/18/17 06:10 04/18/17 08:10 Sodium Level 153 mmol/L (136-145) Potassium Level 3.5 mmol/L (3.5-5.1) Chloride Level 120 mmol/L (98-107) Carbon Dioxide Level 26 mmol/L (21-32) Anion Gap 7 (6-14) Blood Urea Nitrogen 31 mg/dL (8-26) Creatinine 1.3 mg/dL (0.7-1.3) Estimated GFR (Cockcroft-Gault) 53.7 Glucose Level 63 mg/dL (70-99) Calcium Level 8.1 mg/dL (8.5-10.1) White Blood Count 6.2 x10^3/uL (4.0-11.0) Red Blood Count 3.26 x10^6/uL (4.30-5.70) Hemoglobin 10.3 g/dL (13.0-17.5) Hematocrit 30.6 % (39.0-53.0) Mean Corpuscular Volume 94 fL (79-100) Mean Corpuscular Hemoglobin 32 pg (25-35) Mean Corpuscular Hemoglobin Concent 34 g/dL (31-37) Red Cell Distribution Width 16.9 % (11.5-14.5) Platelet Count 56 x10^3/uL (140-400) Neutrophils (%) (Auto) 72 % (31-73) Lymphocytes (%) (Auto) 21 % (24-48) Monocytes (%) (Auto) 7 % (0-9) Eosinophils (%) (Auto) 0 % (0-3) Basophils (%) (Auto) 0 % (0-3) Neutrophils # (Auto) 4.5 x10^3uL (1.8-7.7) Lymphocytes # (Auto) 1.3 x10^3/uL (1.0-4.8) Monocytes # (Auto) 0.4 x10^3/uL (0.0-1.1) Eosinophils # (Auto) 0.0 x10^3/uL (0.0-0.7) Basophils # (Auto) 0.0 x10^3/uL (0.0-0.2) O2 Saturation 99 % (92-99) Arterial Blood pH 7.35 (7.35-7.45) Arterial Blood pCO2 at Patient Temp 40 mmHg (35-46) Arterial Blood pO2 at Patient Temp 174 mmHg (65-108) Arterial Blood HCO3 22 mmol/L (21-28) Arterial Blood Base Excess -4 mmol/L (-3-3) FiO2 40 Medications Active Scripts Medications Dose Route/Sig Max Daily Dose Days Date Category Montelukast Sodium Tablet (Montelukast Sodium) 10 Mg Tablet 10 Mg PO HS 04/16/17 Reported Zyrtec (Cetirizine Hcl) 10 Mg Tablet 10 Tab PO DAILY 04/16/17 Reported Ibuprofen 400 Mg Tablet 400 Mg PO TID 04/16/17 Reported Keppra (Levetiracetam) 500 Mg Tablet 500 Tab PO BID 04/16/17 Reported Depakote (Divalproex Sodium) 500 Mg Tablet.dr 500 Tab PO BID 04/16/17 Reported Amlodipine Besylate 5 Mg Tablet 5 Mg PO DAILY 04/16/17 Reported Impression . 1. Acute respiratory failure, multifactorial in nature 2. acute/chronic encephalopathy 3. Possible sepsis 4. Hypotension, 5. History of seizure disorder. 6. Dementia. 7. Alzheimer's. 8. RADHA Plan . 1. will maintain off sedation d/w PRASANNA Ohara PRN 2. Continue ventilator support for now 3. Protonix for stress ulcer prophylaxis. 4. Lovenox for DVT prophylaxis. 5. His CT of the head reportedly showed small vessel disease, no acute abnormality, repeat CT after extubation 6. ID to follow 7. CXR reviewed 8. follow neuro input NELSON BELL MD Apr 18, 2017 15:02
[2017-04-18] MEDS: VANCOMYCIN PER PHARMACY MC PRN (15:11)
[2017-04-18] MEDS ORDERED: HALOPERIDOL LACTATE 5 MG/ML VIAL. IVP PRN (16:30)
--- NOTE | 2017-04-18 17:10 | PDOC ---
PROGRESS NOTES Assessment Assessment IMPRESSION: Status epilepticus Seizure metabolic encephalopathy. Respiratory fialure Leukocytosis HTN Bradycardia Hypothyroidism RECOMMENDATIONS/PLAN: Continue current AEDs. EEG Treat medical diseases. SUBJECTIVE: Unresponsive. OBJECTIVE: Off sedation for > 24 hours. ALLERGIES: No known allergies to drugs. FAMILY HISTORY: Not obtainable. SOCIAL HISTORY: He is incarcerated, but completed his sentence. He is a [place] of the state and due to his mental status, he was not able to be released from the facility. MEDICATIONS: Refer to [facility] REVIEW OF SYSTEMS: See PMx. PHYSICAL EXAMINATION: General appearance in acute distress. HEENT: Normocephalic and nontraumatic. Eyes, nose, ears, and throat are unremarkable. Hearing decrease. Neck is supple. No lymphadenopathy. No Crepitus. Cardiovascular: S1, S2, regular rate and rhythm. Pulmonary: Clear to auscultation bilaterally. Abdomen: Bowel sounds are positive. Extremities: No rash, lesions, or edema. No restriction of range of motion NEUROLOGICAL EXAMINATION: Unresponsive. On vent. Off sedation > 24 hours. Not oriented to time, place and person. PERRL. EOMI not elicited. CN: no focal findings. Muscle tone: fluctuated. Muscle strength: Minimal movements noted to stimuli. DTR: 1 Plantar reflex: Neutral response bilaterally Gait: not examined in bed. Sensory exam: Minimal response. Not able to access cerebellar signs. Objective Objective Vital Signs Date Time Temp Pulse Resp B/P (MAP) Pulse Ox O2 Delivery O2 Flow Rate FiO2 04/18/17 16:57 100 Ventilator 04/18/17 16:00 98.0 67 12 163/81 (108) 98.0 Intake and Output 04/18/17 07:00 Intake Total 3191.2 ml Output Total 775 ml Balance 2416.2 ml Intake Oral 0 ml IV Total 649.2 ml Other 2542 ml Output Urine Total 775 ml Vitals Signs Vitals VS - Last 72 Hours, by Label Date Time Temp Pulse Resp B/P (MAP) Pulse Ox O2 Delivery O2 Flow Rate FiO2 04/18/17 16:57 100 Ventilator 04/18/17 16:00 Mechanical Ventilator 04/18/17 16:00 98.0 67 12 163/81 (108) 100 Ventilator 98.0 04/18/17 15:00 69 12 158/82 (107) 100 Ventilator 04/18/17 14:00 82 12 178/94 (122) 100 Ventilator 04/18/17 13:00 72 12 145/80 (101) 100 Ventilator 04/18/17 12:00 98.1 84 12 152/75 (100) 100 Ventilator 98.1 04/18/17 12:00 Mechanical Ventilator 04/18/17 11:16 100 Ventilator 04/18/17 11:00 78 12 126/97 (107) 100 Ventilator 04/18/17 10:00 77 12 127/69 (88) 100 Ventilator 04/18/17 09:00 76 12 112/57 (75) 100 Ventilator 04/18/17 08:00 Mechanical Ventilator 04/18/17 08:00 100 Ventilator 04/18/17 08:00 98.2 86 12 114/63 (80) 100 Ventilator 98.2 04/18/17 07:00 90 12 113/63 (80) 100 Ventilator 04/18/17 06:00 90 12 117/62 (80) 99 Ventilator 04/18/17 05:41 100 Ventilator 04/18/17 05:00 95 12 128/67 (87) 100 Ventilator 04/18/17 04:00 98.6 88 12 115/61 (79) 100 Ventilator 98.6 04/18/17 04:00 Mechanical Ventilator 04/18/17 03:36 100 Ventilator 04/18/17 03:00 88 12 105/56 (72) 100 Ventilator 04/18/17 02:00 88 12 114/61 (78) 100 Ventilator 04/18/17 01:43 100 Ventilator 04/18/17 01:00 91 12 116/60 (78) 100 Ventilator 04/18/17 00:00 Mechanical Ventilator 04/18/17 00:00 98.5 91 12 119/63 (81) 100 Ventilator 98.5 04/17/17 23:35 100 Ventilator 04/17/17 23:00 83 12 99/58 (72) 100 Ventilator 04/17/17 22:00 82 12 113/55 (74) 100 Ventilator 04/17/17 21:00 78 12 100/55 (70) 100 Ventilator 04/17/17 20:05 100 Ventilator 04/17/17 20:00 97.4 77 12 110/59 (76) 100 Ventilator 97.4 04/17/17 20:00 Mechanical Ventilator 04/17/17 19:00 74 12 99/58 (72) 100 Ventilator 04/17/17 18:00 72 12 118/60 (79) 100 Ventilator 04/17/17 17:42 100 Ventilator 04/17/17 17:00 73 12 144/79 (100) 100 Ventilator 04/17/17 16:00 97.4 71 12 94/52 (66) 100 Ventilator 97.4 04/17/17 16:00 Mechanical Ventilator 04/17/17 14:55 74 94/52 (66) 04/17/17 14:15 72 84/47 (59) 04/17/17 14:00 76 12 76/52 (60) 100 Ventilator 04/17/17 13:19 100 Ventilator 04/17/17 13:00 77 12 111/74 (86) 100 Ventilator 04/17/17 12:00 Mechanical Ventilator 04/17/17 12:00 97.7 79 12 93/49 (64) 100 Ventilator 97.7 04/17/17 11:00 82 12 103/57 (72) 100 Ventilator 04/17/17 10:00 84 12 106/59 (75) 100 Ventilator 04/17/17 09:30 100 Ventilator 04/17/17 09:00 80 12 118/64 (82) 100 Ventilator 04/17/17 09:00 80 118/64 04/17/17 08:00 Mechanical Ventilator 04/17/17 08:00 74 12 115/57 (76) 100 Ventilator 04/17/17 07:00 98.0 78 12 98/54 (69) 100 Ventilator 98.0 Laboratory Laboratory Laboratory Tests Test 04/18/17 03:50 04/18/17 06:10 04/18/17 08:10 Sodium Level 153 mmol/L (136-145) Potassium Level 3.5 mmol/L (3.5-5.1) Chloride Level 120 mmol/L (98-107) Carbon Dioxide Level 26 mmol/L (21-32) Anion Gap 7 (6-14) Blood Urea Nitrogen 31 mg/dL (8-26) Creatinine 1.3 mg/dL (0.7-1.3) Estimated GFR (Cockcroft-Gault) 53.7 Glucose Level 63 mg/dL (70-99) Calcium Level 8.1 mg/dL (8.5-10.1) White Blood Count 6.2 x10^3/uL (4.0-11.0) Red Blood Count 3.26 x10^6/uL (4.30-5.70) Hemoglobin 10.3 g/dL (13.0-17.5) Hematocrit 30.6 % (39.0-53.0) Mean Corpuscular Volume 94 fL (79-100) Mean Corpuscular Hemoglobin 32 pg (25-35) Mean Corpuscular Hemoglobin Concent 34 g/dL (31-37) Red Cell Distribution Width 16.9 % (11.5-14.5) Platelet Count 56 x10^3/uL (140-400) Neutrophils (%) (Auto) 72 % (31-73) Lymphocytes (%) (Auto) 21 % (24-48) Monocytes (%) (Auto) 7 % (0-9) Eosinophils (%) (Auto) 0 % (0-3) Basophils (%) (Auto) 0 % (0-3) Neutrophils # (Auto) 4.5 x10^3uL (1.8-7.7) Lymphocytes # (Auto) 1.3 x10^3/uL (1.0-4.8) Monocytes # (Auto) 0.4 x10^3/uL (0.0-1.1) Eosinophils # (Auto) 0.0 x10^3/uL (0.0-0.7) Basophils # (Auto) 0.0 x10^3/uL (0.0-0.2) O2 Saturation 99 % (92-99) Arterial Blood pH 7.35 (7.35-7.45) Arterial Blood pCO2 at Patient Temp 40 mmHg (35-46) Arterial Blood pO2 at Patient Temp 174 mmHg (65-108) Arterial Blood HCO3 22 mmol/L (21-28) Arterial Blood Base Excess -4 mmol/L (-3-3) FiO2 40 Microbiology 04/17/17 Blood Culture - Preliminary, Resulted NO GROWTH AFTER 1 DAY 04/17/17 Gram Stain - Final, Complete 04/17/17 Urine Culture - Preliminary, Resulted 04/17/17 Urine Culture Result 1 (ABDULAZIZ) - Preliminary, Resulted Medication Medications Current Medications Chlorhexidine Gluconate (Peridex) 15 ml BID SWSP ; Start 04/18/17 at 21:00 Haloperidol Lactate (Haldol) 5 mg PRN Q6HRS PRN IVP AGITATION; Start 6/19/17 at 16:30 Levetiracetam 750 mg/Sodium Chloride 107.5 ml @ 440 mls/hr Q12HR IV Last administered on 04/18/17 09:09; Start 04/17/17 at 21:00 Vancomycin HCl 1 each 1X ONCE MC ; Start 04/20/17 at 11:30; Stop 04/20/17 at 11 :31 Vancomycin HCl (Vanco Per Pharmacy) 1 each PRN DAILY PRN MC SEE COMMENTS Last administered on 04/18/17 15:11; Start 04/18/17 at 10:15 Vancomycin HCl 1.25 gm/Sodium Chloride 250 ml @ 167 mls/hr Q24H IV ; Start at 12:00 Vancomycin HCl 2 gm/Sodium Chloride 500 ml @ 250 mls/hr 1X ONCE IV Last administered on 04/18/17 12:13; Start 04/18/17 at 10:30; Stop 04/18/17 at 12:29 ; Status DC Comment Review of Relevant I have reviewed the following items campos (where applicable) has been applied. AI MAJANO MD Apr 18, 2017 17:10
[2017-04-18] MEDS: SCOPOLAMINE 1.5MG PATCH. TD SCH (20:39)
[2017-04-18] MEDS: MONTELUKAST SODIUM 10 MG TABLET. PO SCH (20:40)
[2017-04-18] MEDS: CHLORHEXIDINE 0.12% 15 ML MOUTHWASH. SWSP SCH (20:42)
[2017-04-19] VITALS (24 sets, daily range): BP systolic 111–173; BP diastolic 35–96
[2017-04-19 00:16] LABS: BARBITURATES NEG (NEG); BENZODIAZEPINES POS (NEG); CANNABINOIDS NEG (NEG); COCAINE NEG (NEG); METHADONE NEG (NEG); OPIATES NEG (NEG); PHENCYCLIDINE NEG (NEG)
[2017-04-19 05:08] LABS: BASO % 0 % (0-3); EOS % 1 % (0-3); HEMATOCRIT 32.1 % (39.0-53.0); HEMOGLOBIN 10.5 g/dL (13.0-17.5); LYMPH # 1.1 x10^3/uL (1.0-4.8); LYMPH % 17 % (24-48); MEAN CORPUSCULAR HEMOGLOBIN 32 pg (25-35); MEAN CORPUSCULAR HGB CONC 33 g/dL (31-37); MEAN CORPUSCULAR VOLUME 96 fL (79-100); MONO % 9 % (0-9); NEUT % 73 % (31-73); PLATELET COUNT 43 x10^3/uL (140-400); RED BLOOD COUNT 3.34 x10^6/uL (4.30-5.70); RED CELL DISTRIBUTION WIDTH 16.9 % (11.5-14.5); WHITE BLOOD COUNT 6.2 x10^3/uL (4.0-11.0)
[2017-04-19 05:24] LABS: CALCIUM 8.3 mg/dL (8.5-10.1); CREATININE 1.2 mg/dL (0.7-1.3); GFR 58.9; POTASSIUM 3.4 mmol/L (3.5-5.1)
--- NOTE | 2017-04-19 05:29 | CONS ---
DATE OF CONSULTATION: 04/18/2017 REQUESTING PHYSICIAN: Dr. Silverio. REASON FOR CONSULTATION: Blood culture positive. HISTORY OF PRESENT ILLNESS: This is a 76-year-old -Russian gentleman, who is incarcerated at [facility] was brought in with having a seizure and status epilepticus, unresponsiveness. The patient does have advanced dementias according to the ____ he is not able to differentiate between objects. The patient required intubation and patient is currently sedated, intubated on a ventilator. The patient's blood culture at [facility] was positive with 0.5 gram-positive cocci in clusters. The patient is receiving Rocephin and vancomycin. PAST MEDICAL HISTORY: Positive for advanced dementia, seizure disorder and hypertension. SOCIAL HISTORY: Unable to obtain. ALLERGIES: No known drug allergies. CURRENT MEDICATIONS: Reviewed. REVIEW OF SYSTEMS: Unable to obtain other than what I mentioned in HPI through the nursing, there is no nausea, vomiting or diarrhea noted. PHYSICAL EXAMINATION: GENERAL: Sedated, orally intubated gentleman on a ventilator, not in distress. VITAL SIGNS: Stable, afebrile. HEENT: NAD. NECK: Supple, no JVP, no lymphadenopathy. LUNGS: Clear. HEART: S1, S2 regular. ABDOMEN: Benign. EXTREMITIES: No edema or cyanosis. SKIN: Unremarkable. NEUROLOGIC: The patient is sedated, orally intubated. NEUROLOGIC: Unable to assess. LABORATORY DATA: White count is normal. BUN and creatinine is 31 and 1.3. Urinalysis unremarkable. MRSA screen is negative. Blood culture here is negative, one from [facility] is positive with 0.5 gram-positive cocci in clusters. Chest x-ray is unremarkable. IMPRESSION: 1. Blood culture positive, most likely 1/2 gram-positive cocci, most likely to be contaminant. ID is pending. 2. Respiratory failure. 3. Encephalopathy from probably seizure. 4. Seizure disorder. 5. Advanced dementia. RECOMMENDATIONS: Recommend continue Rocephin and vancomycin for the time being soon will scale down. Supportive care and the patient should be considered for hospice. Thank you very much, Dr. Silverio, for giving me the opportunity to participate in this patient's care. HEAVENLY BOTELLO MD DR: MOISES/huyen JOB#: [id number] / [id number] MAGDALENA
--- NOTE | 2017-04-19 08:03 | PDOC ---
Infectious Disease Note Subjective Subjective unresponsive ROS ROS unable to do Vital Sign Vital Signs Vital Signs Date Time Temp Pulse Resp B/P (MAP) Pulse Ox O2 Delivery O2 Flow Rate FiO2 04/19/17 07:00 60 12 124/70 (88) 100 Ventilator 04/19/17 04:00 97.4 97.4 Physical Exam PHYSICAL EXAM GENERAL: on vent HEENT: PERRL, OC/OP NECK: Supple, no JVD, no LN LUNGS: Clear HEART: S1S2, no gallop, no murmur ABD: Soft, NT, no organomegaly, no rebound EXT: No edema, no cyanosis PANEL COVERER: unresponsive on vent SKIN: No rash IV: ok Labs Lab Laboratory Tests Test 04/18/17 08:10 04/18/17 23:59 04/19/17 04:30 O2 Saturation 99 % (92-99) Arterial Blood pH 7.35 (7.35-7.45) Arterial Blood pCO2 at Patient Temp 40 mmHg (35-46) Arterial Blood pO2 at Patient Temp 174 mmHg (65-108) Arterial Blood HCO3 22 mmol/L (21-28) Arterial Blood Base Excess -4 mmol/L (-3-3) FiO2 40 Urine Opiates Screen Neg (NEG) Urine Methadone Screen Neg (NEG) Urine Barbiturates Neg (NEG) Urine Phencyclidine Screen Neg (NEG) Urine Amphetamine/Methamphetamine Neg (NEG) Urine Benzodiazepines Screen Pos (NEG) Urine Cocaine Screen Neg (NEG) Urine Cannabinoids Screen Neg (NEG) Urine Ethyl Alcohol Neg (NEG) White Blood Count 6.2 x10^3/uL (4.0-11.0) Red Blood Count 3.34 x10^6/uL (4.30-5.70) Hemoglobin 10.5 g/dL (13.0-17.5) Hematocrit 32.1 % (39.0-53.0) Mean Corpuscular Volume 96 fL (79-100) Mean Corpuscular Hemoglobin 32 pg (25-35) Mean Corpuscular Hemoglobin Concent 33 g/dL (31-37) Red Cell Distribution Width 16.9 % (11.5-14.5) Platelet Count 43 x10^3/uL (140-400) Neutrophils (%) (Auto) 73 % (31-73) Lymphocytes (%) (Auto) 17 % (24-48) Monocytes (%) (Auto) 9 % (0-9) Eosinophils (%) (Auto) 1 % (0-3) Basophils (%) (Auto) 0 % (0-3) Neutrophils # (Auto) 4.5 x10^3uL (1.8-7.7) Lymphocytes # (Auto) 1.1 x10^3/uL (1.0-4.8) Monocytes # (Auto) 0.5 x10^3/uL (0.0-1.1) Eosinophils # (Auto) 0.1 x10^3/uL (0.0-0.7) Basophils # (Auto) 0.0 x10^3/uL (0.0-0.2) Sodium Level 154 mmol/L (136-145) Potassium Level 3.4 mmol/L (3.5-5.1) Chloride Level 120 mmol/L (98-107) Carbon Dioxide Level 29 mmol/L (21-32) Anion Gap 5 (6-14) Blood Urea Nitrogen 24 mg/dL (8-26) Creatinine 1.2 mg/dL (0.7-1.3) Estimated GFR (Cockcroft-Gault) 58.9 Glucose Level 164 mg/dL (70-99) Calcium Level 8.3 mg/dL (8.5-10.1) Objective Assessment BC + G + cocci, ? contaminant, ID pending Respiratory failure Dementia Encephalopathy Plan Plan of Care cont rocephine and vanc soon to scale down supportive care consider hospice HEAVENLY BOTELLO MD Apr 19, 2017 08:03
[2017-04-19 08:42] LABS: FIO2 ABG 40; HCO3 ABG 26 mmol/L (21-28); PCO2 ABG 46 mmHg (35-46); PH ABG 7.37 (7.35-7.45); PO2 ABG 195 mmHg (65-108); SAT O2 ABG 99 % (92-99)
--- NOTE | 2017-04-19 08:44 | PDOC ---
PULMONARY PROGRESS NOTES Subjective off sedation does not follow commands Vitals Vital Signs Date Time Temp Pulse Resp B/P (MAP) Pulse Ox O2 Delivery O2 Flow Rate FiO2 04/19/17 08:00 100 Ventilator 04/19/17 07:00 60 12 124/70 (88) 04/19/17 04:00 97.4 97.4 HEENT: Other (nc at perrl, nose clear, orally intubated, neck, no lap, no thyromegaly) Lungs: Clear Cardiovascular: S1, S2 Abdomen: Soft, Non-tender, Other Extremities: No Edema Skin: Warm Labs Laboratory Tests Test 04/17/17 12:30 04/18/17 03:50 04/18/17 06:10 04/18/17 08:10 Urine Collection Type Unknown Urine Color Yellow Urine Clarity Clear Urine pH 5.0 Urine Specific Edwards 1.025 Urine Protein Negative mg/dL (NEG-TRACE) Urine Glucose (UA) Negative mg/dL (NEG) Urine Ketones (Stick) 15 mg/dL (NEG) Urine Blood Negative (NEG) Urine Nitrite Negative (NEG) Urine Bilirubin Negative (NEG) Urine Urobilinogen Dipstick 0.2 mg/dL (0.2 mg/dL) Urine Leukocyte Esterase Small (NEG) Urine RBC 0 /HPF (0-2) Urine WBC 0 /HPF (0-4) Urine Amorphous Sediment Present /HPF Urine Bacteria 0 /HPF (0-FEW) Sodium Level 153 mmol/L (136-145) Potassium Level 3.5 mmol/L (3.5-5.1) Chloride Level 120 mmol/L (98-107) Carbon Dioxide Level 26 mmol/L (21-32) Anion Gap 7 (6-14) Blood Urea Nitrogen 31 mg/dL (8-26) Creatinine 1.3 mg/dL (0.7-1.3) Estimated GFR (Cockcroft-Gault) 53.7 Glucose Level 63 mg/dL (70-99) Calcium Level 8.1 mg/dL (8.5-10.1) White Blood Count 6.2 x10^3/uL (4.0-11.0) Red Blood Count 3.26 x10^6/uL (4.30-5.70) Hemoglobin 10.3 g/dL (13.0-17.5) Hematocrit 30.6 % (39.0-53.0) Mean Corpuscular Volume 94 fL (79-100) Mean Corpuscular Hemoglobin 32 pg (25-35) Mean Corpuscular Hemoglobin Concent 34 g/dL (31-37) Red Cell Distribution Width 16.9 % (11.5-14.5) Platelet Count 56 x10^3/uL (140-400) Neutrophils (%) (Auto) 72 % (31-73) Lymphocytes (%) (Auto) 21 % (24-48) Monocytes (%) (Auto) 7 % (0-9) Eosinophils (%) (Auto) 0 % (0-3) Basophils (%) (Auto) 0 % (0-3) Neutrophils # (Auto) 4.5 x10^3uL (1.8-7.7) Lymphocytes # (Auto) 1.3 x10^3/uL (1.0-4.8) Monocytes # (Auto) 0.4 x10^3/uL (0.0-1.1) Eosinophils # (Auto) 0.0 x10^3/uL (0.0-0.7) Basophils # (Auto) 0.0 x10^3/uL (0.0-0.2) O2 Saturation 99 % (92-99) Arterial Blood pH 7.35 (7.35-7.45) Arterial Blood pCO2 at Patient Temp 40 mmHg (35-46) Arterial Blood pO2 at Patient Temp 174 mmHg (65-108) Arterial Blood HCO3 22 mmol/L (21-28) Arterial Blood Base Excess -4 mmol/L (-3-3) FiO2 40 Test 04/18/17 23:59 04/19/17 04:30 04/19/17 08:20 Urine Opiates Screen Neg (NEG) Urine Methadone Screen Neg (NEG) Urine Barbiturates Neg (NEG) Urine Phencyclidine Screen Neg (NEG) Urine Amphetamine/Methamphetamine Neg (NEG) Urine Benzodiazepines Screen Pos (NEG) Urine Cocaine Screen Neg (NEG) Urine Cannabinoids Screen Neg (NEG) Urine Ethyl Alcohol Neg (NEG) White Blood Count 6.2 x10^3/uL (4.0-11.0) Red Blood Count 3.34 x10^6/uL (4.30-5.70) Hemoglobin 10.5 g/dL (13.0-17.5) Hematocrit 32.1 % (39.0-53.0) Mean Corpuscular Volume 96 fL (79-100) Mean Corpuscular Hemoglobin 32 pg (25-35) Mean Corpuscular Hemoglobin Concent 33 g/dL (31-37) Red Cell Distribution Width 16.9 % (11.5-14.5) Platelet Count 43 x10^3/uL (140-400) Neutrophils (%) (Auto) 73 % (31-73) Lymphocytes (%) (Auto) 17 % (24-48) Monocytes (%) (Auto) 9 % (0-9) Eosinophils (%) (Auto) 1 % (0-3) Basophils (%) (Auto) 0 % (0-3) Neutrophils # (Auto) 4.5 x10^3uL (1.8-7.7) Lymphocytes # (Auto) 1.1 x10^3/uL (1.0-4.8) Monocytes # (Auto) 0.5 x10^3/uL (0.0-1.1) Eosinophils # (Auto) 0.1 x10^3/uL (0.0-0.7) Basophils # (Auto) 0.0 x10^3/uL (0.0-0.2) Sodium Level 154 mmol/L (136-145) Potassium Level 3.4 mmol/L (3.5-5.1) Chloride Level 120 mmol/L (98-107) Carbon Dioxide Level 29 mmol/L (21-32) Anion Gap 5 (6-14) Blood Urea Nitrogen 24 mg/dL (8-26) Creatinine 1.2 mg/dL (0.7-1.3) Estimated GFR (Cockcroft-Gault) 58.9 Glucose Level 164 mg/dL (70-99) Calcium Level 8.3 mg/dL (8.5-10.1) O2 Saturation 99 % (92-99) Arterial Blood pH 7.37 (7.35-7.45) Arterial Blood pCO2 at Patient Temp 46 mmHg (35-46) Arterial Blood pO2 at Patient Temp 195 mmHg (65-108) Arterial Blood HCO3 26 mmol/L (21-28) Arterial Blood Base Excess 1 mmol/L (-3-3) FiO2 40 Laboratory Tests Test 04/18/17 23:59 04/19/17 04:30 04/19/17 08:20 Urine Opiates Screen Neg (NEG) Urine Methadone Screen Neg (NEG) Urine Barbiturates Neg (NEG) Urine Phencyclidine Screen Neg (NEG) Urine Amphetamine/Methamphetamine Neg (NEG) Urine Benzodiazepines Screen Pos (NEG) Urine Cocaine Screen Neg (NEG) Urine Cannabinoids Screen Neg (NEG) Urine Ethyl Alcohol Neg (NEG) White Blood Count 6.2 x10^3/uL (4.0-11.0) Red Blood Count 3.34 x10^6/uL (4.30-5.70) Hemoglobin 10.5 g/dL (13.0-17.5) Hematocrit 32.1 % (39.0-53.0) Mean Corpuscular Volume 96 fL (79-100) Mean Corpuscular Hemoglobin 32 pg (25-35) Mean Corpuscular Hemoglobin Concent 33 g/dL (31-37) Red Cell Distribution Width 16.9 % (11.5-14.5) Platelet Count 43 x10^3/uL (140-400) Neutrophils (%) (Auto) 73 % (31-73) Lymphocytes (%) (Auto) 17 % (24-48) Monocytes (%) (Auto) 9 % (0-9) Eosinophils (%) (Auto) 1 % (0-3) Basophils (%) (Auto) 0 % (0-3) Neutrophils # (Auto) 4.5 x10^3uL (1.8-7.7) Lymphocytes # (Auto) 1.1 x10^3/uL (1.0-4.8) Monocytes # (Auto) 0.5 x10^3/uL (0.0-1.1) Eosinophils # (Auto) 0.1 x10^3/uL (0.0-0.7) Basophils # (Auto) 0.0 x10^3/uL (0.0-0.2) Sodium Level 154 mmol/L (136-145) Potassium Level 3.4 mmol/L (3.5-5.1) Chloride Level 120 mmol/L (98-107) Carbon Dioxide Level 29 mmol/L (21-32) Anion Gap 5 (6-14) Blood Urea Nitrogen 24 mg/dL (8-26) Creatinine 1.2 mg/dL (0.7-1.3) Estimated GFR (Cockcroft-Gault) 58.9 Glucose Level 164 mg/dL (70-99) Calcium Level 8.3 mg/dL (8.5-10.1) O2 Saturation 99 % (92-99) Arterial Blood pH 7.37 (7.35-7.45) Arterial Blood pCO2 at Patient Temp 46 mmHg (35-46) Arterial Blood pO2 at Patient Temp 195 mmHg (65-108) Arterial Blood HCO3 26 mmol/L (21-28) Arterial Blood Base Excess 1 mmol/L (-3-3) FiO2 40 Medications Active Scripts Medications Dose Route/Sig Max Daily Dose Days Date Category Montelukast Sodium Tablet (Montelukast Sodium) 10 Mg Tablet 10 Mg PO HS 04/16/17 Reported Zyrtec (Cetirizine Hcl) 10 Mg Tablet 10 Tab PO DAILY 04/16/17 Reported Ibuprofen 400 Mg Tablet 400 Mg PO TID 04/16/17 Reported Keppra (Levetiracetam) 500 Mg Tablet 500 Tab PO BID 04/16/17 Reported Depakote (Divalproex Sodium) 500 Mg Tablet.dr 500 Tab PO BID 04/16/17 Reported Amlodipine Besylate 5 Mg Tablet 5 Mg PO DAILY 04/16/17 Reported Impression . 1. Acute respiratory failure, multifactorial in nature 2. acute/chronic encephalopathy 3. Possible sepsis 4. Hypotension, 5. History of seizure disorder. 6. Dementia. 7. Alzheimer's. 8. RADHA Plan . 1. will maintain off sedation 2. Continue ventilator support for now 3. Protonix for stress ulcer prophylaxis. 4. Lovenox for DVT prophylaxis. 5. His CT of the head reportedly showed small vessel disease, no acute abnormality, repeat CT after extubation 6. ID to follow 7. CXR reviewed 8. follow neuro input NELSON BELL MD Apr 19, 2017 08:44
[2017-04-19] MEDS: amLODIPine BESYLATE 5 MG TABLET PO SCH (08:55)
[2017-04-19] MEDS: CHLORHEXIDINE 0.12% 15 ML MOUTHWASH. SWSP SCH ×2 (08:57→20:36)
[2017-04-19] MEDS: VALPROIC ACID (AS SODIUM SALT) 500 MG in IV NORMAL SALINE 50ML 50 ML IV SCH ×2 (08:57→20:38)
[2017-04-19] MEDS: LACOSAMIDE 100 MG in IV NORMAL SALINE 50ML 50 ML IV SCH ×2 (08:57→20:36)
[2017-04-19] MEDS: VANCOMYCIN PER PHARMACY MC PRN (09:26)
[2017-04-19] MEDS: CETIRIZINE HCL 10 MG TABLET. PO SCH (11:21)
[2017-04-19] MEDS: PANTOPRAZOLE IV PUSH 40 MG VIAL. IVP SCH (11:22)
[2017-04-19] MEDS: ENOXAPARIN 40 MG/0.4 ML SYRINGE. SQ SCH (11:26)
[2017-04-19] MEDS ORDERED: VANCOMYCIN 1.25 GM in IV NORMAL SALINE 250ML 250 ML IV SCH (12:00)
--- NOTE | 2017-04-19 12:01 | PDOC ---
PROGRESS NOTES Chief Complaint Chief Complaint cc:AMS A/P 1. Acute metabolic encephalopathy, possible seizure recurrent: On IV Keppra and Vimpat,, repeat CT after extubation, 2. Acute hypoxic respiratory failure: on mechanical ventilation,sedated with versed, CXR no acute process, tube feeds, 3. GPC bacteremia, POA: add vancomycin to Rocephin, consult ID, 4. RADHA: due to dehydration : on IV NS 5. History of dementia, unknown type. 6. Bradycardia, sinus.: resolved. 7. Hypernatremia: water flushes, 200ml q 4hrs with D5 1/2 NS 8. Thrombocytopenia: monitor. History of Present Illness History of Present Illness d/w RN Bcx positive for GPC Vitals Vitals Vital Signs Date Time Temp Pulse Resp B/P (MAP) Pulse Ox O2 Delivery O2 Flow Rate FiO2 04/19/17 11:17 100 Ventilator 04/19/17 11:00 62 12 138/35 (69) 04/19/17 08:00 97.5 97.5 Physical Exam General: Other (OFF SEDATION, INTUBATED, ) Heart: Normal S1, Normal S2 Lungs: Clear Abdomen: Normal bowel sounds Extremities: No clubbing Skin: No rashes Labs LABS Laboratory Tests Test 04/18/17 23:59 04/19/17 04:30 04/19/17 08:20 Urine Opiates Screen Neg (NEG) Urine Methadone Screen Neg (NEG) Urine Barbiturates Neg (NEG) Urine Phencyclidine Screen Neg (NEG) Urine Amphetamine/Methamphetamine Neg (NEG) Urine Benzodiazepines Screen Pos (NEG) Urine Cocaine Screen Neg (NEG) Urine Cannabinoids Screen Neg (NEG) Urine Ethyl Alcohol Neg (NEG) White Blood Count 6.2 x10^3/uL (4.0-11.0) Red Blood Count 3.34 x10^6/uL (4.30-5.70) Hemoglobin 10.5 g/dL (13.0-17.5) Hematocrit 32.1 % (39.0-53.0) Mean Corpuscular Volume 96 fL (79-100) Mean Corpuscular Hemoglobin 32 pg (25-35) Mean Corpuscular Hemoglobin Concent 33 g/dL (31-37) Red Cell Distribution Width 16.9 % (11.5-14.5) Platelet Count 43 x10^3/uL (140-400) Neutrophils (%) (Auto) 73 % (31-73) Lymphocytes (%) (Auto) 17 % (24-48) Monocytes (%) (Auto) 9 % (0-9) Eosinophils (%) (Auto) 1 % (0-3) Basophils (%) (Auto) 0 % (0-3) Neutrophils # (Auto) 4.5 x10^3uL (1.8-7.7) Lymphocytes # (Auto) 1.1 x10^3/uL (1.0-4.8) Monocytes # (Auto) 0.5 x10^3/uL (0.0-1.1) Eosinophils # (Auto) 0.1 x10^3/uL (0.0-0.7) Basophils # (Auto) 0.0 x10^3/uL (0.0-0.2) Sodium Level 154 mmol/L (136-145) Potassium Level 3.4 mmol/L (3.5-5.1) Chloride Level 120 mmol/L (98-107) Carbon Dioxide Level 29 mmol/L (21-32) Anion Gap 5 (6-14) Blood Urea Nitrogen 24 mg/dL (8-26) Creatinine 1.2 mg/dL (0.7-1.3) Estimated GFR (Cockcroft-Gault) 58.9 Glucose Level 164 mg/dL (70-99) Calcium Level 8.3 mg/dL (8.5-10.1) O2 Saturation 99 % (92-99) Arterial Blood pH 7.37 (7.35-7.45) Arterial Blood pCO2 at Patient Temp 46 mmHg (35-46) Arterial Blood pO2 at Patient Temp 195 mmHg (65-108) Arterial Blood HCO3 26 mmol/L (21-28) Arterial Blood Base Excess 1 mmol/L (-3-3) FiO2 40 Comment Review of Relevant I have reviewed the following items campos (where applicable) has been applied. Labs Laboratory Tests Test 04/17/17 12:30 04/18/17 03:50 04/18/17 06:10 04/18/17 08:10 Urine Collection Type Unknown Urine Color Yellow Urine Clarity Clear Urine pH 5.0 Urine Specific [place]accoon 1.025 Urine Protein Negative mg/dL (NEG-TRACE) Urine Glucose (UA) Negative mg/dL (NEG) Urine Ketones (Stick) 15 mg/dL (NEG) Urine Blood Negative (NEG) Urine Nitrite Negative (NEG) Urine Bilirubin Negative (NEG) Urine Urobilinogen Dipstick 0.2 mg/dL (0.2 mg/dL) Urine Leukocyte Esterase Small (NEG) Urine RBC 0 /HPF (0-2) Urine WBC 0 /HPF (0-4) Urine Amorphous Sediment Present /HPF Urine Bacteria 0 /HPF (0-FEW) Sodium Level 153 mmol/L (136-145) Potassium Level 3.5 mmol/L (3.5-5.1) Chloride Level 120 mmol/L (98-107) Carbon Dioxide Level 26 mmol/L (21-32) Anion Gap 7 (6-14) Blood Urea Nitrogen 31 mg/dL (8-26) Creatinine 1.3 mg/dL (0.7-1.3) Estimated GFR (Cockcroft-Gault) 53.7 Glucose Level 63 mg/dL (70-99) Calcium Level 8.1 mg/dL (8.5-10.1) White Blood Count 6.2 x10^3/uL (4.0-11.0) Red Blood Count 3.26 x10^6/uL (4.30-5.70) Hemoglobin 10.3 g/dL (13.0-17.5) Hematocrit 30.6 % (39.0-53.0) Mean Corpuscular Volume 94 fL (79-100) Mean Corpuscular Hemoglobin 32 pg (25-35) Mean Corpuscular Hemoglobin Concent 34 g/dL (31-37) Red Cell Distribution Width 16.9 % (11.5-14.5) Platelet Count 56 x10^3/uL (140-400) Neutrophils (%) (Auto) 72 % (31-73) Lymphocytes (%) (Auto) 21 % (24-48) Monocytes (%) (Auto) 7 % (0-9) Eosinophils (%) (Auto) 0 % (0-3) Basophils (%) (Auto) 0 % (0-3) Neutrophils # (Auto) 4.5 x10^3uL (1.8-7.7) Lymphocytes # (Auto) 1.3 x10^3/uL (1.0-4.8) Monocytes # (Auto) 0.4 x10^3/uL (0.0-1.1) Eosinophils # (Auto) 0.0 x10^3/uL (0.0-0.7) Basophils # (Auto) 0.0 x10^3/uL (0.0-0.2) O2 Saturation 99 % (92-99) Arterial Blood pH 7.35 (7.35-7.45) Arterial Blood pCO2 at Patient Temp 40 mmHg (35-46) Arterial Blood pO2 at Patient Temp 174 mmHg (65-108) Arterial Blood HCO3 22 mmol/L (21-28) Arterial Blood Base Excess -4 mmol/L (-3-3) FiO2 40 Test 04/18/17 23:59 04/19/17 04:30 04/19/17 08:20 Urine Opiates Screen Neg (NEG) Urine Methadone Screen Neg (NEG) Urine Barbiturates Neg (NEG) Urine Phencyclidine Screen Neg (NEG) Urine Amphetamine/Methamphetamine Neg (NEG) Urine Benzodiazepines Screen Pos (NEG) Urine Cocaine Screen Neg (NEG) Urine Cannabinoids Screen Neg (NEG) Urine Ethyl Alcohol Neg (NEG) White Blood Count 6.2 x10^3/uL (4.0-11.0) Red Blood Count 3.34 x10^6/uL (4.30-5.70) Hemoglobin 10.5 g/dL (13.0-17.5) Hematocrit 32.1 % (39.0-53.0) Mean Corpuscular Volume 96 fL (79-100) Mean Corpuscular Hemoglobin 32 pg (25-35) Mean Corpuscular Hemoglobin Concent 33 g/dL (31-37) Red Cell Distribution Width 16.9 % (11.5-14.5) Platelet Count 43 x10^3/uL (140-400) Neutrophils (%) (Auto) 73 % (31-73) Lymphocytes (%) (Auto) 17 % (24-48) Monocytes (%) (Auto) 9 % (0-9) Eosinophils (%) (Auto) 1 % (0-3) Basophils (%) (Auto) 0 % (0-3) Neutrophils # (Auto) 4.5 x10^3uL (1.8-7.7) Lymphocytes # (Auto) 1.1 x10^3/uL (1.0-4.8) Monocytes # (Auto) 0.5 x10^3/uL (0.0-1.1) Eosinophils # (Auto) 0.1 x10^3/uL (0.0-0.7) Basophils # (Auto) 0.0 x10^3/uL (0.0-0.2) Sodium Level 154 mmol/L (136-145) Potassium Level 3.4 mmol/L (3.5-5.1) Chloride Level 120 mmol/L (98-107) Carbon Dioxide Level 29 mmol/L (21-32) Anion Gap 5 (6-14) Blood Urea Nitrogen 24 mg/dL (8-26) Creatinine 1.2 mg/dL (0.7-1.3) Estimated GFR (Cockcroft-Gault) 58.9 Glucose Level 164 mg/dL (70-99) Calcium Level 8.3 mg/dL (8.5-10.1) O2 Saturation 99 % (92-99) Arterial Blood pH 7.37 (7.35-7.45) Arterial Blood pCO2 at Patient Temp 46 mmHg (35-46) Arterial Blood pO2 at Patient Temp 195 mmHg (65-108) Arterial Blood HCO3 26 mmol/L (21-28) Arterial Blood Base Excess 1 mmol/L (-3-3) FiO2 40 Laboratory Tests Test 04/18/17 23:59 04/19/17 04:30 04/19/17 08:20 Urine Opiates Screen Neg (NEG) Urine Methadone Screen Neg (NEG) Urine Barbiturates Neg (NEG) Urine Phencyclidine Screen Neg (NEG) Urine Amphetamine/Methamphetamine Neg (NEG) Urine Benzodiazepines Screen Pos (NEG) Urine Cocaine Screen Neg (NEG) Urine Cannabinoids Screen Neg (NEG) Urine Ethyl Alcohol Neg (NEG) White Blood Count 6.2 x10^3/uL (4.0-11.0) Red Blood Count 3.34 x10^6/uL (4.30-5.70) Hemoglobin 10.5 g/dL (13.0-17.5) Hematocrit 32.1 % (39.0-53.0) Mean Corpuscular Volume 96 fL (79-100) Mean Corpuscular Hemoglobin 32 pg (25-35) Mean Corpuscular Hemoglobin Concent 33 g/dL (31-37) Red Cell Distribution Width 16.9 % (11.5-14.5) Platelet Count 43 x10^3/uL (140-400) Neutrophils (%) (Auto) 73 % (31-73) Lymphocytes (%) (Auto) 17 % (24-48) Monocytes (%) (Auto) 9 % (0-9) Eosinophils (%) (Auto) 1 % (0-3) Basophils (%) (Auto) 0 % (0-3) Neutrophils # (Auto) 4.5 x10^3uL (1.8-7.7) Lymphocytes # (Auto) 1.1 x10^3/uL (1.0-4.8) Monocytes # (Auto) 0.5 x10^3/uL (0.0-1.1) Eosinophils # (Auto) 0.1 x10^3/uL (0.0-0.7) Basophils # (Auto) 0.0 x10^3/uL (0.0-0.2) Sodium Level 154 mmol/L (136-145) Potassium Level 3.4 mmol/L (3.5-5.1) Chloride Level 120 mmol/L (98-107) Carbon Dioxide Level 29 mmol/L (21-32) Anion Gap 5 (6-14) Blood Urea Nitrogen 24 mg/dL (8-26) Creatinine 1.2 mg/dL (0.7-1.3) Estimated GFR (Cockcroft-Gault) 58.9 Glucose Level 164 mg/dL (70-99) Calcium Level 8.3 mg/dL (8.5-10.1) O2 Saturation 99 % (92-99) Arterial Blood pH 7.37 (7.35-7.45) Arterial Blood pCO2 at Patient Temp 46 mmHg (35-46) Arterial Blood pO2 at Patient Temp 195 mmHg (65-108) Arterial Blood HCO3 26 mmol/L (21-28) Arterial Blood Base Excess 1 mmol/L (-3-3) FiO2 40 Microbiology 04/17/17 Blood Culture - Preliminary, Resulted NO GROWTH AFTER 2 DAYS 04/17/17 Gram Stain - Final, Complete 04/17/17 Urine Culture - Preliminary, Resulted 04/17/17 Urine Culture Result 1 (ABDULAZIZ) - Preliminary, Resulted Medications Current Medications Lorazepam (Ativan) 1 mg PRN Q1HR PRN IV ANXIETY / AGITATION; Start 04/16/17 at 09:30 Acetaminophen (Tylenol) 325 mg PRN Q6HRS PRN PO MILD PAIN / TEMP; Start at 11:00 Acetaminophen/ Hydrocodone Bitart (Lortab 5/325) 1 tab PRN Q6HRS PRN PO MODERATE TO SEVERE PAIN; Start 04/16/17 at 11:00 Hydralazine HCl (Apresoline) 10 mg PRN Q4HRS PRN IVP ELEVATED BP, SEE COMMENTS ; Start 04/16/17 at 11:00 Ondansetron HCl (Zofran) 4 mg PRN Q8HRS PRN IV NAUSEA/VOMITING; Start 04/16/17 at 11:00 Albuterol Sulfate (Ventolin Neb Soln) 2.5 mg PRN Q4HRS PRN NEB SHORTNESS OF BREATH Last administered on 04/18/17 16:56; Start 04/16/17 at 11:00 Amlodipine Besylate (Norvasc) 5 mg DAILY PO Last administered on 04/19/17 08: 55; Start 04/16/17 at 12:00 Cetirizine HCl (ZyrTEC) 10 mg DAILY PO Last administered on 04/19/17 11:21; Start 04/16/17 at 12:00 Divalproex Sodium (Depakote) 500 mg BID PO ; Start 04/16/17 at 12:00; Status Cancel Levetiracetam (Keppra) 500 mg BID PO ; Start 04/16/17 at 12:00; Stop 04/16/17 at 12:13; Status DC Montelukast Sodium (Singulair) 10 mg HS PO Last administered on 04/18/17 20:40 ; Start 04/16/17 at 21:00 Levetiracetam (Keppra) 500 mg 1X ONCE PO ; Start 04/17/17 at 12:00; Stop at 12:00; Status DC Levetiracetam 500 mg/Sodium Chloride 100 ml @ 400 mls/hr Q12HR IV Last administered on 04/16/17 12:52; Start 04/16/17 at 12:00; Stop 04/16/17 at 16:28 ; Status DC Valproic Acid 500 mg/Sodium Chloride 55 ml @ 55 mls/hr Q12HR IV Last administered on 04/19/17 08:57; Start 04/16/17 at 12:00 Levetiracetam 1000 mg/Sodium Chloride 110 ml @ 400 mls/hr Q12H IV Last administered on 04/17/17 09:35; Start 04/16/17 at 21:30; Stop 04/17/17 at 10:35 ; Status DC Levetiracetam 500 mg/Sodium Chloride 100 ml @ 400 mls/hr 1X ONCE IV Last administered on 04/16/17 16:54; Start 04/16/17 at 17:00; Stop 04/16/17 at 17:14 ; Status DC Lacosamide 100 mg/ Sodium Chloride 60 ml @ 120 mls/hr BID IV Last administered on 04/19/17 08:57; Start 04/16/17 at 21:00 Lacosamide 100 mg/ Sodium Chloride 60 ml @ 120 mls/hr 1X ONCE IV Last administered on 04/16/17 16:55; Start 04/16/17 at 17:30; Stop 04/16/17 at 17:59 ; Status DC Pantoprazole Sodium (Protonix) 40 mg DAILYAC PO Last administered on 04/17/17 09:32; Start 04/16/17 at 17:00; Stop 04/19/17 at 10:48; Status DC Sodium Chloride 1,000 ml @ 1,000 mls/hr 1X ONCE IV Last administered on 00:48; Start 04/17/17 at 01:00; Stop 04/17/17 at 01:59; Status DC Norepinephrine Bitartrate 250 ml @ 0 mls/hr CONT PRN IV SEE I/O RECORD Last administered on 04/17/17 01:25; Start 04/17/17 at 00:45 Midazolam HCl 100 ml @ 0 mls/hr CONT PRN IV SEE I/O RECORD; Start 04/17/17 at 01:00 Ceftriaxone Sodium 1 gm/ Sodium Chloride 50 ml @ 100 mls/hr Q24H IV Last administered on 04/19/17 08:55; Start 04/17/17 at 09:00 Levetiracetam 750 mg/Sodium Chloride 107.5 ml @ 440 mls/hr Q12HR IV Last administered on 04/19/17 08:56; Start 04/17/17 at 21:00 Sodium Chloride 1,000 ml @ 75 mls/hr [id number] IV ; Start 04/17/17 at 13:00; Stop 04/17/17 at 13:02; Status DC Dextrose/Sodium Chloride 1,000 ml @ 75 mls/hr [id number] IV Last administered on 04/18/17 20:42; Start 04/17/17 at 13:15; Stop 04/19/17 at 08:03; Status DC Vancomycin HCl (Vanco Per Pharmacy) 1 each PRN DAILY PRN MC SEE COMMENTS Last administered on 04/19/17 09:26; Start 04/18/17 at 10:15 Vancomycin HCl 2 gm/Sodium Chloride 500 ml @ 250 mls/hr 1X ONCE IV Last administered on 04/18/17 12:13; Start 04/18/17 at 10:30; Stop 04/18/17 at 12:29 ; Status DC Vancomycin HCl 1.25 gm/Sodium Chloride 250 ml @ 167 mls/hr Q24H IV Last administered on 04/19/17 11:22; Start 04/19/17 at 12:00 Vancomycin HCl 1 each 1X ONCE MC ; Start 04/20/17 at 11:30; Stop 04/20/17 at 11 :31 Chlorhexidine Gluconate (Peridex) 15 ml BID SWSP Last administered on 08:57; Start 04/18/17 at 21:00 Haloperidol Lactate (Haldol) 5 mg PRN Q6HRS PRN IVP AGITATION Last administered on 04/18/17 22:18; Start 04/18/17 at 16:30 Scopolamine (Transderm-Scop) 1 patch Q3DAYS TD Last administered on 04/18/17 20:39; Start 04/18/17 at 20:00 Pantoprazole Sodium (Protonix Vial) 40 mg DAILYAC IVP Last administered on 04/19 11:22; Start 04/19/17 at 11:00 Enoxaparin Sodium (Lovenox 40mg Syringe) 40 mg Q24H SQ Last administered on 11:26; Start 04/19/17 at 12:00 Active Scripts Active Reported Montelukast Sodium Tablet (Montelukast Sodium) 10 Mg Tablet 10 Mg PO HS Zyrtec (Cetirizine Hcl) 10 Mg Tablet 10 Tab PO DAILY Ibuprofen 400 Mg Tablet 400 Mg PO TID Keppra (Levetiracetam) 500 Mg Tablet 500 Tab PO BID Depakote (Divalproex Sodium) 500 Mg Tablet.dr 500 Tab PO BID Amlodipine Besylate 5 Mg Tablet 5 Mg PO DAILY Vitals/I & O Vital Sign - Last 24 Hours 04/18/17 04/18/17 04/18/17 04/18/17 12:00 12:00 13:00 14:00 Temp 98.1 98.1 Pulse 84 72 82 Resp 10 11 12 B/P (MAP) 152/75 (100) 145/80 (101) 178/94 (122) Pulse Ox 100 100 100 O2 Delivery Mechanical Ventilator Ventilator Ventilator Ventilator 04/18/17 04/18/17 04/18/17 04/18/17 15:00 16:00 16:00 16:57 Temp 98.0 98.0 Pulse 69 67 Resp 10 11 B/P (MAP) 158/82 (107) 163/81 (108) Pulse Ox 100 100 100 O2 Delivery Ventilator Ventilator Mechanical Ventilator Ventilator 04/18/17 04/18/17 04/18/17 04/18/17 17:00 18:00 19:00 20:00 Temp 97.4 97.4 Pulse 66 69 78 72 Resp B/P (MAP) 158/85 (109) 163/85 (111) 170/87 (114) 157/87 (110) Pulse Ox 100 100 100 100 O2 Delivery Ventilator Ventilator Ventilator Ventilator 04/18/17 04/18/17 04/18/17 04/18/17 20:00 20:03 21:00 22:00 Pulse 63 62 Resp 12 12 B/P (MAP) 152/77 (102) 150/79 (102) Pulse Ox 100 100 100 O2 Delivery Mechanical Ventilator Ventilator Ventilator Ventilator 04/18/17 04/18/17 04/18/17 04/19/17 23:00 23:02 23:59 00:00 Temp 97.3 97.3 Pulse 68 62 Resp 12 12 B/P (MAP) 163/94 (117) 145/87 (106) Pulse Ox 100 100 100 O2 Delivery Ventilator Ventilator Mechanical Ventilator Ventilator 04/19/17 04/19/17 04/19/17 04/19/17 01:00 01:45 02:00 03:00 Pulse 60 59 68 Resp 12 12 14 B/P (MAP) 125/67 (86) 142/96 (111) 163/86 (111) Pulse Ox 100 100 100 100 O2 Delivery Ventilator Ventilator Ventilator Ventilator 04/19/17 04/19/17 04/19/17 04/19/17 03:40 04:00 04:00 05:00 Temp 97.4 97.4 Pulse 77 67 Resp 14 17 B/P (MAP) 173/84 (113) 157/80 (105) Pulse Ox 100 100 100 O2 Delivery Ventilator Ventilator Mechanical Ventilator Ventilator 04/19/17 04/19/17 04/19/17 04/19/17 05:41 06:00 07:00 08:00 Pulse 63 60 Resp 12 12 B/P (MAP) 139/84 (102) 124/70 (88) Pulse Ox 100 100 100 100 O2 Delivery Ventilator Ventilator Ventilator Ventilator 04/19/17 04/19/17 04/19/17 04/19/17 08:00 08:00 08:55 09:00 Temp 97.5 97.5 Pulse 66 75 77 Resp 12 12 B/P (MAP) 156/80 (105) 156/80 136/83 (100) Pulse Ox 100 100 O2 Delivery Ventilator Mechanical Ventilator Ventilator 04/19/17 04/19/17 04/19/17 04/19/17 09:51 10:00 11:00 11:17 Pulse 65 62 Resp 13 12 B/P (MAP) 160/88 (112) 138/35 (69) Pulse Ox 100 100 100 100 O2 Delivery Ventilator Ventilator Ventilator Ventilator Intake and Output 04/18/17 04/18/17 04/19/17 15:00 23:00 07:00 Intake Total 772.5 ml 977 ml 1447 ml Output Total 690 ml 230 ml Balance 772.5 ml 287 ml 1217 ml DERIK HESS MD Apr 19, 2017 12:01
[2017-04-19] MEDS: IV DEXTROSE 5 %-0.45 % NACL 1,000 ML IV SCH (12:12)
--- NOTE | 2017-04-19 14:17 | RAD ---
Indication change in mental status. Loss of consciousness. Noncontrast images of the head were obtained. No prior imaging is available for comparison purposes. The calvarium appears unremarkable. There is significant opacification of the left maxillary sinus and lesser opacification of the right. There is significant opacification of ethmoid air cells and the sphenoid sinus and partial opacification of the left frontal sinus. Findings suggest pansinusitis. Clinical correlation advised. There is no subdural or epidural hematoma. There is underlying atrophy. There is increased lucency in the deep white matter compatible with microvascular disease. There is no mass or midline shift. Acute finding is not apparent. There is no hemorrhage. IMPRESSION: Chronic changes. No acute finding seen in the head. Pansinusitis PQRS Compliance Statement: One or more of the following individualized dose reduction techniques were utilized for this examination: 1. Automated exposure control 2. Adjustment of the mA and/or kV according to patient size 3. Use of iterative reconstruction technique
--- NOTE | 2017-04-19 14:43 | PDOC ---
PROGRESS NOTES Assessment Assessment Status epilepticus Seizure metabolic encephalopathy. Respiratory fialure Leukocytosis HTN Bradycardia Hypothyroidism RECOMMENDATIONS/PLAN: Treat medical diseases. EEG on 04/19/17: Diffuse encephalopathy. No seizure activity. SUBJECTIVE: Unresponsive. OBJECTIVE: Off sedation for > 48 hours. ALLERGIES: No known allergies to drugs. FAMILY HISTORY: Not obtainable. SOCIAL HISTORY: He is incarcerated, but completed his sentence. He is a [place]dh[place] of the state and due to his mental status, he was not able to be released from the facility. MEDICATIONS: Refer to [facility] REVIEW OF SYSTEMS: See PMx. PHYSICAL EXAMINATION: General appearance in acute distress. HEENT: Normocephalic and nontraumatic. Eyes, nose, ears, and throat are unremarkable. Hearing decrease. Neck is supple. No lymphadenopathy. No Crepitus. Cardiovascular: S1, S2, regular rate and rhythm. Pulmonary: Clear to auscultation bilaterally. Abdomen: Bowel sounds are positive. Extremities: No rash, lesions, or edema. No restriction of range of motion NEUROLOGICAL EXAMINATION: Unresponsive. On vent. Off sedation > 48 hours. Not oriented to time, place and person. PERRL. EOMI not elicited. CN: no focal findings. Muscle tone: fluctuated. Muscle strength: Minimal movements noted to stimuli. DTR: 1 Plantar reflex: Neutral response bilaterally Gait: not examined in bed. Sensory exam: Minimal response. Not able to access cerebellar signs. Objective Objective Vital Signs Date Time Temp Pulse Resp B/P (MAP) Pulse Ox O2 Delivery O2 Flow Rate FiO2 04/19/17 14:00 66 12 171/92 (118) 100 Ventilator 04/19/17 12:00 97.8 97.8 Intake and Output 04/19/17 07:00 Intake Total 3241.5 ml Output Total 948 ml Balance 2293.5 ml Intake Oral 0 ml IV Total 2794.5 ml Tube Feeding 447 ml Output Urine Total 948 ml Gastric Drainage Total 0 ml Vitals Signs Vitals VS - Last 72 Hours, by Label Date Time Temp Pulse Resp B/P (MAP) Pulse Ox O2 Delivery O2 Flow Rate FiO2 04/19/17 14:00 66 12 171/92 (118) 100 Ventilator 04/19/17 13:00 69 12 157/85 (109) 100 Ventilator 04/19/17 12:00 Mechanical Ventilator 04/19/17 12:00 97.8 62 12 172/92 (118) 100 Ventilator 97.8 04/19/17 11:17 100 Ventilator 04/19/17 11:00 62 12 138/35 (69) 100 Ventilator 04/19/17 10:00 65 13 160/88 (112) 100 Ventilator 04/19/17 09:51 100 Ventilator 04/19/17 09:00 77 12 136/83 (100) 100 Ventilator 04/19/17 08:55 75 156/80 04/19/17 08:00 Mechanical Ventilator 04/19/17 08:00 97.5 66 12 156/80 (105) 100 Ventilator 97.5 04/19/17 08:00 100 Ventilator 04/19/17 07:00 60 12 124/70 (88) 100 Ventilator 04/19/17 06:00 63 12 139/84 (102) 100 Ventilator 04/19/17 05:41 100 Ventilator 04/19/17 05:00 67 17 157/80 (105) 100 Ventilator 04/19/17 04:00 Mechanical Ventilator 04/19/17 04:00 97.4 77 14 173/84 (113) 100 Ventilator 97.4 04/19/17 03:40 100 Ventilator 04/19/17 03:00 68 14 163/86 (111) 100 Ventilator 04/19/17 02:00 59 12 142/96 (111) 100 Ventilator 04/19/17 01:45 100 Ventilator 04/19/17 01:00 60 12 125/67 (86) 100 Ventilator 04/19/17 00:00 97.3 62 12 145/87 (106) 100 Ventilator 97.3 04/18/17 23:59 Mechanical Ventilator 04/18/17 23:02 100 Ventilator 04/18/17 23:00 68 12 163/94 (117) 100 Ventilator 04/18/17 22:00 62 12 150/79 (102) 100 Ventilator 04/18/17 21:00 63 12 152/77 (102) 100 Ventilator 04/18/17 20:03 100 Ventilator 04/18/17 20:00 Mechanical Ventilator 04/18/17 20:00 97.4 72 17 157/87 (110) 100 Ventilator 97.4 04/18/17 19:00 78 12 170/87 (114) 100 Ventilator 04/18/17 18:00 69 12 163/85 (111) 100 Ventilator 04/18/17 17:00 66 12 158/85 (109) 100 Ventilator 04/18/17 16:57 100 Ventilator 04/18/17 16:00 Mechanical Ventilator 04/18/17 16:00 98.0 67 12 163/81 (108) 100 Ventilator 98.0 04/18/17 15:00 69 12 158/82 (107) 100 Ventilator 04/18/17 14:00 82 12 178/94 (122) 100 Ventilator 04/18/17 13:00 72 12 145/80 (101) 100 Ventilator 04/18/17 12:00 98.1 84 12 152/75 (100) 100 Ventilator 98.1 04/18/17 12:00 Mechanical Ventilator 04/18/17 11:16 100 Ventilator 04/18/17 11:00 78 12 126/97 (107) 100 Ventilator 04/18/17 10:00 77 12 127/69 (88) 100 Ventilator 04/18/17 09:00 76 12 112/57 (75) 100 Ventilator 04/18/17 08:00 Mechanical Ventilator 04/18/17 08:00 100 Ventilator 04/18/17 08:00 98.2 86 12 114/63 (80) 100 Ventilator 98.2 04/18/17 07:00 90 12 113/63 (80) 100 Ventilator Laboratory Laboratory Laboratory Tests Test 04/18/17 23:59 04/19/17 04:30 04/19/17 08:20 Urine Opiates Screen Neg (NEG) Urine Methadone Screen Neg (NEG) Urine Barbiturates Neg (NEG) Urine Phencyclidine Screen Neg (NEG) Urine Amphetamine/Methamphetamine Neg (NEG) Urine Benzodiazepines Screen Pos (NEG) Urine Cocaine Screen Neg (NEG) Urine Cannabinoids Screen Neg (NEG) Urine Ethyl Alcohol Neg (NEG) White Blood Count 6.2 x10^3/uL (4.0-11.0) Red Blood Count 3.34 x10^6/uL (4.30-5.70) Hemoglobin 10.5 g/dL (13.0-17.5) Hematocrit 32.1 % (39.0-53.0) Mean Corpuscular Volume 96 fL (79-100) Mean Corpuscular Hemoglobin 32 pg (25-35) Mean Corpuscular Hemoglobin Concent 33 g/dL (31-37) Red Cell Distribution Width 16.9 % (11.5-14.5) Platelet Count 43 x10^3/uL (140-400) Neutrophils (%) (Auto) 73 % (31-73) Lymphocytes (%) (Auto) 17 % (24-48) Monocytes (%) (Auto) 9 % (0-9) Eosinophils (%) (Auto) 1 % (0-3) Basophils (%) (Auto) 0 % (0-3) Neutrophils # (Auto) 4.5 x10^3uL (1.8-7.7) Lymphocytes # (Auto) 1.1 x10^3/uL (1.0-4.8) Monocytes # (Auto) 0.5 x10^3/uL (0.0-1.1) Eosinophils # (Auto) 0.1 x10^3/uL (0.0-0.7) Basophils # (Auto) 0.0 x10^3/uL (0.0-0.2) Sodium Level 154 mmol/L (136-145) Potassium Level 3.4 mmol/L (3.5-5.1) Chloride Level 120 mmol/L (98-107) Carbon Dioxide Level 29 mmol/L (21-32) Anion Gap 5 (6-14) Blood Urea Nitrogen 24 mg/dL (8-26) Creatinine 1.2 mg/dL (0.7-1.3) Estimated GFR (Cockcroft-Gault) 58.9 Glucose Level 164 mg/dL (70-99) Calcium Level 8.3 mg/dL (8.5-10.1) O2 Saturation 99 % (92-99) Arterial Blood pH 7.37 (7.35-7.45) Arterial Blood pCO2 at Patient Temp 46 mmHg (35-46) Arterial Blood pO2 at Patient Temp 195 mmHg (65-108) Arterial Blood HCO3 26 mmol/L (21-28) Arterial Blood Base Excess 1 mmol/L (-3-3) FiO2 40 Microbiology 04/17/17 Blood Culture - Preliminary, Resulted NO GROWTH AFTER 2 DAYS 04/17/17 Gram Stain - Final, Complete 04/17/17 Urine Culture - Final, Complete 04/17/17 Urine Culture Result 1 ([id number]) - Final, Complete Medication Medications Current Medications Chlorhexidine Gluconate (Peridex) 15 ml BID SWSP Last administered on t 08:57; Start 04/18/17 at 21:00 Dextrose/Sodium Chloride 1,000 ml @ 45 mls/hr [id number] IV Last administered on 04/19/17 12:12; Start 04/19/17 at 12:00; Stop 04/20/17 at 11:59 Enoxaparin Sodium (Lovenox 40mg Syringe) 40 mg Q24H SQ Last administered on 11:26; Start 04/19/17 at 12:00 Haloperidol Lactate (Haldol) 5 mg PRN Q6HRS PRN IVP AGITATION Last administered on 04/18/17 22:18; Start 04/18/17 at 16:30 Pantoprazole Sodium (Protonix Vial) 40 mg DAILYAC IVP Last administered on 04/19 11:22; Start 04/19/17 at 11:00 Scopolamine (Transderm-Scop) 1 patch Q3DAYS TD Last administered on 04/18/17 20:39; Start 04/18/17 at 20:00 Vancomycin HCl 1 each 1X ONCE MC ; Start 04/20/17 at 11:30; Stop 04/20/17 at 11 :31 Vancomycin HCl 1.25 gm/Sodium Chloride 250 ml @ 167 mls/hr Q24H IV Last administered on 04/19/17 11:22; Start 04/19/17 at 12:00 Comment Review of Relevant I have reviewed the following items campos (where applicable) has been applied. AI MAJANO MD Apr 19, 2017 14:43
--- NOTE | 2017-04-19 15:54 | EEG ---
DATE OF SERVICE: 04/19/2017 DATE OF STUDY: 04/19/2017 EEG#: [id number]. OBJECTIVE: This is a 76-year-old -[place] male patient with history of seizure and status epilepticus this time. EEG was requested to evaluate seizure activity. METHODS: Twenty electrodes were applied according to the international 10-20 electrode placement system. EKG monitoring, hyperventilation, intermittent photic stimulation, monopolar and bipolar montages are routinely utilized. The record was obtained on a digital system with video monitoring. MEDICATIONS: Keppra, Depakote, Vimpat. FINDINGS: 1. Background: The patient was recorded in the unresponsive state only. No physiological awake, drowsy, and sleep states were recorded. The overall background amplitude is variable. No clear posterior dominant rhythm is observed. The overall background rhythm is with diffuse slowing in theta and delta frequencies throughout the entire recording. 2. Abnormalities: No specific epileptiform discharge or electrographic seizure is seen. 3. Activation: Hyperventilation was not performed because the patient was in unresponsive state. Intermittent photic stimulation was performed without significant photic driving. IMPRESSION: This electroencephalogram is an abnormal study for the unresponsive state only. No physiological awake, drowsy, and sleep states were recorded. There is diffuse slowing in theta and delta frequencies throughout the entire recording. No focal, lateralizing, specific epileptiform discharges, or electrographic seizure is seen. This pattern of electroencephalogram is suggestive of diffuse encephalopathy. AI MAJANO MD DR: VERONA/huyen JOB#: [id number] / [id number] MAGDALENA
[2017-04-19] MEDS: MONTELUKAST SODIUM 10 MG TABLET. PO SCH (20:38)
[2017-04-20] VITALS (24 sets, daily range): BP systolic 121–173; BP diastolic 57–105
[2017-04-20 05:23] LABS: BASO % 0 % (0-3); EOS % 1 % (0-3); HEMATOCRIT 34.3 % (39.0-53.0); HEMOGLOBIN 11.3 g/dL (13.0-17.5); LYMPH # 0.9 x10^3/uL (1.0-4.8); LYMPH % 14 % (24-48); MEAN CORPUSCULAR HEMOGLOBIN 31 pg (25-35); MEAN CORPUSCULAR HGB CONC 33 g/dL (31-37); MEAN CORPUSCULAR VOLUME 96 fL (79-100); MONO % 11 % (0-9); NEUT % 74 % (31-73); PLATELET COUNT 42 x10^3/uL (140-400); RED BLOOD COUNT 3.58 x10^6/uL (4.30-5.70); RED CELL DISTRIBUTION WIDTH 16.8 % (11.5-14.5); WHITE BLOOD COUNT 6.5 x10^3/uL (4.0-11.0)
[2017-04-20 05:45] LABS: CALCIUM 8.2 mg/dL (8.5-10.1); GFR 72.6; POTASSIUM 3.3 mmol/L (3.5-5.1)
--- NOTE | 2017-04-20 07:53 | PDOC ---
Infectious Disease Note Subjective Subjective unresponsive ROS ROS unable to do Vital Sign Vital Signs Vital Signs Date Time Temp Pulse Resp B/P (MAP) Pulse Ox O2 Delivery O2 Flow Rate FiO2 04/20/17 07:29 100 Ventilator 04/20/17 07:00 74 12 132/70 (90) 04/20/17 04:00 97.4 97.4 Physical Exam PHYSICAL EXAM GENERAL: NAD, on vent HEENT: PERRL, OC/OP NECK: Supple, no JVD, no LN LUNGS: Clear HEART: S1S2, no gallop, no murmur ABD: Soft, NT, no organomegaly, no rebound EXT: No edema, no cyanosis STORES CLERK: unresponsive on vent SKIN: No rash IV: ok Labs Lab Laboratory Tests Test 04/19/17 08:20 04/20/17 04:30 O2 Saturation 99 % (92-99) Arterial Blood pH 7.37 (7.35-7.45) Arterial Blood pCO2 at Patient Temp 46 mmHg (35-46) Arterial Blood pO2 at Patient Temp 195 mmHg (65-108) Arterial Blood HCO3 26 mmol/L (21-28) Arterial Blood Base Excess 1 mmol/L (-3-3) FiO2 40 White Blood Count 6.5 x10^3/uL (4.0-11.0) Red Blood Count 3.58 x10^6/uL (4.30-5.70) Hemoglobin 11.3 g/dL (13.0-17.5) Hematocrit 34.3 % (39.0-53.0) Mean Corpuscular Volume 96 fL (79-100) Mean Corpuscular Hemoglobin 31 pg (25-35) Mean Corpuscular Hemoglobin Concent 33 g/dL (31-37) Red Cell Distribution Width 16.8 % (11.5-14.5) Platelet Count 42 x10^3/uL (140-400) Neutrophils (%) (Auto) 74 % (31-73) Lymphocytes (%) (Auto) 14 % (24-48) Monocytes (%) (Auto) 11 % (0-9) Eosinophils (%) (Auto) 1 % (0-3) Basophils (%) (Auto) 0 % (0-3) Neutrophils # (Auto) 4.8 x10^3uL (1.8-7.7) Lymphocytes # (Auto) 0.9 x10^3/uL (1.0-4.8) Monocytes # (Auto) 0.7 x10^3/uL (0.0-1.1) Eosinophils # (Auto) 0.1 x10^3/uL (0.0-0.7) Basophils # (Auto) 0.0 x10^3/uL (0.0-0.2) Sodium Level 151 mmol/L (136-145) Potassium Level 3.3 mmol/L (3.5-5.1) Chloride Level 115 mmol/L (98-107) Carbon Dioxide Level 30 mmol/L (21-32) Anion Gap 6 (6-14) Blood Urea Nitrogen 15 mg/dL (8-26) Creatinine 1.0 mg/dL (0.7-1.3) Estimated GFR (Cockcroft-Gault) 72.6 Glucose Level 106 mg/dL (70-99) Calcium Level 8.2 mg/dL (8.5-10.1) Objective Assessment BC + G + cocci, ? contaminant, ID pending Respiratory failure Dementia Encephalopathy Plan Plan of Care cont rocephine and vanc soon to scale down supportive care consider hospice HEAVENLY BOTELLO MD Apr 20, 2017 07:53
[2017-04-20 08:45] LABS: FIO2 ABG 40; HCO3 ABG 25 mmol/L (21-28); PCO2 ABG 45 mmHg (35-46); PH ABG 7.37 (7.35-7.45); PO2 ABG 163 mmHg (65-108); SAT O2 ABG 99 % (92-99)
[2017-04-20] MEDS: CETIRIZINE HCL 10 MG TABLET. PO SCH (08:49)
[2017-04-20] MEDS: amLODIPine BESYLATE 5 MG TABLET PO SCH (08:49)
[2017-04-20] MEDS: PANTOPRAZOLE IV PUSH 40 MG VIAL. IVP SCH (08:49)
[2017-04-20] MEDS: CHLORHEXIDINE 0.12% 15 ML MOUTHWASH. SWSP SCH ×2 (08:50→20:39)
[2017-04-20] MEDS: VALPROIC ACID (AS SODIUM SALT) 500 MG in IV NORMAL SALINE 50ML 50 ML IV SCH ×2 (08:50→20:40)
[2017-04-20] MEDS: LACOSAMIDE 100 MG in IV NORMAL SALINE 50ML 50 ML IV SCH (08:50)
--- NOTE | 2017-04-20 09:15 | PDOC ---
PROGRESS NOTES Chief Complaint Chief Complaint cc:AMS A/P 1. Acute metabolic encephalopathy, possible seizure recurrent: On IV Keppra and Vimpat,, repeat CT after extubation, 2. Acute hypoxic respiratory failure: on mechanical ventilation,sedated with versed, CXR no acute process, tube feeds, 3. GPC bacteremia, POA: add vancomycin to Rocephin, consult ID, 4. RADHA: due to dehydration : on IV NS 5. History of dementia, unknown type. 6. Bradycardia, sinus.: resolved. 7. Hypernatremia: water flushes, 200ml q 4hrs with D5 1/2 NS, monitor 8. Thrombocytopenia: monitor. hold Lovenox. 9. Prognosis is poor, decision making difficult, no family available, palliative team consult. History of Present Illness History of Present Illness d/w RN Bcx positive for GPC Vitals Vitals Vital Signs Date Time Temp Pulse Resp B/P (MAP) Pulse Ox O2 Delivery O2 Flow Rate FiO2 04/20/17 09:06 100 Ventilator 04/20/17 09:02 67 12 121/70 (87) 04/20/17 08:15 97.5 97.5 Physical Exam General: Other (OFF SEDATION, INTUBATED, non verbal) Heart: Normal S1, Normal S2 Lungs: Clear Abdomen: Normal bowel sounds Extremities: No clubbing Skin: No rashes Labs LABS Laboratory Tests Test 04/20/17 04:30 04/20/17 08:15 White Blood Count 6.5 x10^3/uL (4.0-11.0) Red Blood Count 3.58 x10^6/uL (4.30-5.70) Hemoglobin 11.3 g/dL (13.0-17.5) Hematocrit 34.3 % (39.0-53.0) Mean Corpuscular Volume 96 fL (79-100) Mean Corpuscular Hemoglobin 31 pg (25-35) Mean Corpuscular Hemoglobin Concent 33 g/dL (31-37) Red Cell Distribution Width 16.8 % (11.5-14.5) Platelet Count 42 x10^3/uL (140-400) Neutrophils (%) (Auto) 74 % (31-73) Lymphocytes (%) (Auto) 14 % (24-48) Monocytes (%) (Auto) 11 % (0-9) Eosinophils (%) (Auto) 1 % (0-3) Basophils (%) (Auto) 0 % (0-3) Neutrophils # (Auto) 4.8 x10^3uL (1.8-7.7) Lymphocytes # (Auto) 0.9 x10^3/uL (1.0-4.8) Monocytes # (Auto) 0.7 x10^3/uL (0.0-1.1) Eosinophils # (Auto) 0.1 x10^3/uL (0.0-0.7) Basophils # (Auto) 0.0 x10^3/uL (0.0-0.2) Sodium Level 151 mmol/L (136-145) Potassium Level 3.3 mmol/L (3.5-5.1) Chloride Level 115 mmol/L (98-107) Carbon Dioxide Level 30 mmol/L (21-32) Anion Gap 6 (6-14) Blood Urea Nitrogen 15 mg/dL (8-26) Creatinine 1.0 mg/dL (0.7-1.3) Estimated GFR (Cockcroft-Gault) 72.6 Glucose Level 106 mg/dL (70-99) Calcium Level 8.2 mg/dL (8.5-10.1) O2 Saturation 99 % (92-99) Arterial Blood pH 7.37 (7.35-7.45) Arterial Blood pCO2 at Patient Temp 45 mmHg (35-46) Arterial Blood pO2 at Patient Temp 163 mmHg (65-108) Arterial Blood HCO3 25 mmol/L (21-28) Arterial Blood Base Excess 0 mmol/L (-3-3) FiO2 40 Comment Review of Relevant I have reviewed the following items campos (where applicable) has been applied. Labs Laboratory Tests Test 04/18/17 23:59 04/19/17 04:30 04/19/17 08:20 04/20/17 04:30 Urine Opiates Screen Neg (NEG) Urine Methadone Screen Neg (NEG) Urine Barbiturates Neg (NEG) Urine Phencyclidine Screen Neg (NEG) Urine Amphetamine/Methamphetamine Neg (NEG) Urine Benzodiazepines Screen Pos (NEG) Urine Cocaine Screen Neg (NEG) Urine Cannabinoids Screen Neg (NEG) Urine Ethyl Alcohol Neg (NEG) White Blood Count 6.2 x10^3/uL (4.0-11.0) 6.5 x10^3/uL (4.0-11.0) Red Blood Count 3.34 x10^6/uL (4.30-5.70) 3.58 x10^6/uL (4.30-5.70) Hemoglobin 10.5 g/dL (13.0-17.5) 11.3 g/dL (13.0-17.5) Hematocrit 32.1 % (39.0-53.0) 34.3 % (39.0-53.0) Mean Corpuscular Volume 96 fL (79-100) 96 fL (79-100) Mean Corpuscular Hemoglobin 32 pg (25-35) 31 pg (25-35) Mean Corpuscular Hemoglobin Concent 33 g/dL (31-37) 33 g/dL (31-37) Red Cell Distribution Width 16.9 % (11.5-14.5) 16.8 % (11.5-14.5) Platelet Count 43 x10^3/uL (140-400) 42 x10^3/uL (140-400) Neutrophils (%) (Auto) 73 % (31-73) 74 % (31-73) Lymphocytes (%) (Auto) 17 % (24-48) 14 % (24-48) Monocytes (%) (Auto) 9 % (0-9) 11 % (0-9) Eosinophils (%) (Auto) 1 % (0-3) 1 % (0-3) Basophils (%) (Auto) 0 % (0-3) 0 % (0-3) Neutrophils # (Auto) 4.5 x10^3uL (1.8-7.7) 4.8 x10^3uL (1.8-7.7) Lymphocytes # (Auto) 1.1 x10^3/uL (1.0-4.8) 0.9 x10^3/uL (1.0-4.8) Monocytes # (Auto) 0.5 x10^3/uL (0.0-1.1) 0.7 x10^3/uL (0.0-1.1) Eosinophils # (Auto) 0.1 x10^3/uL (0.0-0.7) 0.1 x10^3/uL (0.0-0.7) Basophils # (Auto) 0.0 x10^3/uL (0.0-0.2) 0.0 x10^3/uL (0.0-0.2) Sodium Level 154 mmol/L (136-145) 151 mmol/L (136-145) Potassium Level 3.4 mmol/L (3.5-5.1) 3.3 mmol/L (3.5-5.1) Chloride Level 120 mmol/L (98-107) 115 mmol/L (98-107) Carbon Dioxide Level 29 mmol/L (21-32) 30 mmol/L (21-32) Anion Gap 5 (6-14) 6 (6-14) Blood Urea Nitrogen 24 mg/dL (8-26) 15 mg/dL (8-26) Creatinine 1.2 mg/dL (0.7-1.3) 1.0 mg/dL (0.7-1.3) Estimated GFR (Cockcroft-Gault) 58.9 72.6 Glucose Level 164 mg/dL (70-99) 106 mg/dL (70-99) Calcium Level 8.3 mg/dL (8.5-10.1) 8.2 mg/dL (8.5-10.1) O2 Saturation 99 % (92-99) Arterial Blood pH 7.37 (7.35-7.45) Arterial Blood pCO2 at Patient Temp 46 mmHg (35-46) Arterial Blood pO2 at Patient Temp 195 mmHg (65-108) Arterial Blood HCO3 26 mmol/L (21-28) Arterial Blood Base Excess 1 mmol/L (-3-3) FiO2 40 Test 04/20/17 08:15 O2 Saturation 99 % (92-99) Arterial Blood pH 7.37 (7.35-7.45) Arterial Blood pCO2 at Patient Temp 45 mmHg (35-46) Arterial Blood pO2 at Patient Temp 163 mmHg (65-108) Arterial Blood HCO3 25 mmol/L (21-28) Arterial Blood Base Excess 0 mmol/L (-3-3) FiO2 40 Laboratory Tests Test 04/20/17 04:30 04/20/17 08:15 White Blood Count 6.5 x10^3/uL (4.0-11.0) Red Blood Count 3.58 x10^6/uL (4.30-5.70) Hemoglobin 11.3 g/dL (13.0-17.5) Hematocrit 34.3 % (39.0-53.0) Mean Corpuscular Volume 96 fL (79-100) Mean Corpuscular Hemoglobin 31 pg (25-35) Mean Corpuscular Hemoglobin Concent 33 g/dL (31-37) Red Cell Distribution Width 16.8 % (11.5-14.5) Platelet Count 42 x10^3/uL (140-400) Neutrophils (%) (Auto) 74 % (31-73) Lymphocytes (%) (Auto) 14 % (24-48) Monocytes (%) (Auto) 11 % (0-9) Eosinophils (%) (Auto) 1 % (0-3) Basophils (%) (Auto) 0 % (0-3) Neutrophils # (Auto) 4.8 x10^3uL (1.8-7.7) Lymphocytes # (Auto) 0.9 x10^3/uL (1.0-4.8) Monocytes # (Auto) 0.7 x10^3/uL (0.0-1.1) Eosinophils # (Auto) 0.1 x10^3/uL (0.0-0.7) Basophils # (Auto) 0.0 x10^3/uL (0.0-0.2) Sodium Level 151 mmol/L (136-145) Potassium Level 3.3 mmol/L (3.5-5.1) Chloride Level 115 mmol/L (98-107) Carbon Dioxide Level 30 mmol/L (21-32) Anion Gap 6 (6-14) Blood Urea Nitrogen 15 mg/dL (8-26) Creatinine 1.0 mg/dL (0.7-1.3) Estimated GFR (Cockcroft-Gault) 72.6 Glucose Level 106 mg/dL (70-99) Calcium Level 8.2 mg/dL (8.5-10.1) O2 Saturation 99 % (92-99) Arterial Blood pH 7.37 (7.35-7.45) Arterial Blood pCO2 at Patient Temp 45 mmHg (35-46) Arterial Blood pO2 at Patient Temp 163 mmHg (65-108) Arterial Blood HCO3 25 mmol/L (21-28) Arterial Blood Base Excess 0 mmol/L (-3-3) FiO2 40 Microbiology 6/18/17 Blood Culture - Preliminary, Resulted NO GROWTH AFTER 2 DAYS 04/17/17 Gram Stain - Final, Complete 04/17/17 Urine Culture - Final, Complete 04/17/17 Urine Culture Result 1 (ABDULAZIZ) - Final, Complete Medications Current Medications Lorazepam (Ativan) 1 mg PRN Q1HR PRN IV ANXIETY / AGITATION; Start 04/16/17 at 09:30 Acetaminophen (Tylenol) 325 mg PRN Q6HRS PRN PO MILD PAIN / TEMP; Start at 11:00 Acetaminophen/ Hydrocodone Bitart (Lortab 5/325) 1 tab PRN Q6HRS PRN PO MODERATE TO SEVERE PAIN; Start 04/16/17 at 11:00 Hydralazine HCl (Apresoline) 10 mg PRN Q4HRS PRN IVP ELEVATED BP, SEE COMMENTS ; Start 04/16/17 at 11:00 Ondansetron HCl (Zofran) 4 mg PRN Q8HRS PRN IV NAUSEA/VOMITING; Start 04/16/17 at 11:00 Albuterol Sulfate (Ventolin Neb Soln) 2.5 mg PRN Q4HRS PRN NEB SHORTNESS OF BREATH Last administered on 04/18/17 16:56; Start 04/16/17 at 11:00 Amlodipine Besylate (Norvasc) 5 mg DAILY PO Last administered on 04/20/17 08: 49; Start 04/16/17 at 12:00 Cetirizine HCl (ZyrTEC) 10 mg DAILY PO Last administered on 04/20/17 08:49; Start 04/16/17 at 12:00 Divalproex Sodium (Depakote) 500 mg BID PO ; Start 04/16/17 at 12:00; Status Cancel Levetiracetam (Keppra) 500 mg BID PO ; Start 04/16/17 at 12:00; Stop 04/16/17 at 12:13; Status DC Montelukast Sodium (Singulair) 10 mg HS PO Last administered on 04/19/17t 20:38 ; Start 04/16/17 at 21:00 Levetiracetam (Keppra) 500 mg 1X ONCE PO ; Start 04/17/17 at 12:00; Stop at 12:00; Status DC Levetiracetam 500 mg/Sodium Chloride 100 ml @ 400 mls/hr Q12HR IV Last administered on 04/16/17 12:52; Start 04/16/17 at 12:00; Stop 04/16/17 at 16:28 ; Status DC Valproic Acid 500 mg/Sodium Chloride 55 ml @ 55 mls/hr Q12HR IV Last administered on 04/20/17 08:50; Start 04/16/17 at 12:00 Levetiracetam 1000 mg/Sodium Chloride 110 ml @ 400 mls/hr Q12H IV Last administered on 04/17/17 09:35; Start 04/16/17 at 21:30; Stop 04/17/17 at 10:35 ; Status DC Levetiracetam 500 mg/Sodium Chloride 100 ml @ 400 mls/hr 1X ONCE IV Last administered on 04/16/17 16:54; Start 04/16/17 at 17:00; Stop 04/16/17 at 17:14 ; Status DC Lacosamide 100 mg/ Sodium Chloride 60 ml @ 120 mls/hr BID IV Last administered on 04/20/17 08:50; Start 04/16/17 at 21:00 Lacosamide 100 mg/ Sodium Chloride 60 ml @ 120 mls/hr 1X ONCE IV Last administered on 04/16/17 16:55; Start 04/16/17 at 17:30; Stop 04/16/17 at 17:59 ; Status DC Pantoprazole Sodium (Protonix) 40 mg DAILYAC PO Last administered on 04/17/17 09:32; Start 04/16/17 at 17:00; Stop 04/19/17 at 10:48; Status DC Sodium Chloride 1,000 ml @ 1,000 mls/hr 1X ONCE IV Last administered on 00:48; Start 04/17/17 at 01:00; Stop 04/17/17 at 01:59; Status DC Norepinephrine Bitartrate 250 ml @ 0 mls/hr CONT PRN IV SEE I/O RECORD Last administered on 04/17/17 01:25; Start 04/17/17 at 00:45 Midazolam HCl 100 ml @ 0 mls/hr CONT PRN IV SEE I/O RECORD; Start 04/17/17 at 01:00 Ceftriaxone Sodium 1 gm/ Sodium Chloride 50 ml @ 100 mls/hr Q24H IV Last administered on 04/20/17 08:50; Start 04/17/17 at 09:00 Levetiracetam 750 mg/Sodium Chloride 107.5 ml @ 440 mls/hr Q12HR IV Last administered on 04/20/17 08:50; Start 04/17/17 at 21:00 Sodium Chloride 1,000 ml @ 75 mls/hr [id number] IV ; Start 04/17/17 at 13:00; Stop 04/17/17 at 13:02; Status DC Dextrose/Sodium Chloride 1,000 ml @ 75 mls/hr [id number] IV Last administered on 04/18/17 20:42; Start 04/17/17 at 13:15; Stop 04/19/17 at 08:03; Status DC Vancomycin HCl (Vanco Per Pharmacy) 1 each PRN DAILY PRN MC SEE COMMENTS Last administered on 04/19/17 09:26; Start 04/18/17 at 10:15 Vancomycin HCl 2 gm/Sodium Chloride 500 ml @ 250 mls/hr 1X ONCE IV Last administered on 04/18/17 12:13; Start 04/18/17 at 10:30; Stop 04/18/17 at 12:29 ; Status DC Vancomycin HCl 1.25 gm/Sodium Chloride 250 ml @ 167 mls/hr Q24H IV Last administered on 04/19/17 11:22; Start 04/19/17 at 12:00 Vancomycin HCl 1 each 1X ONCE MC ; Start 04/20/17 at 11:30; Stop 04/20/17 at 11 :31 Chlorhexidine Gluconate (Peridex) 15 ml BID SWSP Last administered on 08:50; Start 04/18/17 at 21:00 Haloperidol Lactate (Haldol) 5 mg PRN Q6HRS PRN IVP AGITATION Last administered on 04/18/17 22:18; Start 04/18/17 at 16:30 Scopolamine (Transderm-Scop) 1 patch Q3DAYS TD Last administered on 04/18/17 20:39; Start 04/18/17 at 20:00 Pantoprazole Sodium (Protonix Vial) 40 mg DAILYAC IVP Last administered on 04/20 08:49; Start 04/19/17 at 11:00 Enoxaparin Sodium (Lovenox 40mg Syringe) 40 mg Q24H SQ Last administered on 11:26; Start 04/19/17 at 12:00 Dextrose/Sodium Chloride 1,000 ml @ 45 mls/hr [id number] IV Last administered on 04/19/17 12:12; Start 04/19/17 at 12:00; Stop 04/20/17 at 11:59 Active Scripts Active Reported Montelukast Sodium Tablet (Montelukast Sodium) 10 Mg Tablet 10 Mg PO HS Zyrtec (Cetirizine Hcl) 10 Mg Tablet 10 Tab PO DAILY Ibuprofen 400 Mg Tablet 400 Mg PO TID Keppra (Levetiracetam) 500 Mg Tablet 500 Tab PO BID Depakote (Divalproex Sodium) 500 Mg Tablet.dr 500 Tab PO BID Amlodipine Besylate 5 Mg Tablet 5 Mg PO DAILY Vitals/I & O Vital Sign - Last 24 Hours 04/19/17 04/19/17 04/19/17 04/19/17 09:51 10:00 11:00 11:17 Pulse 65 62 Resp 13 12 B/P (MAP) 160/88 (112) 138/35 (69) Pulse Ox 100 100 100 100 O2 Delivery Ventilator Ventilator Ventilator Ventilator 04/19/17 04/19/17 04/19/17 04/19/17 12:00 12:00 13:00 14:00 Temp 97.8 97.8 Pulse 62 69 66 Resp 12 12 12 B/P (MAP) 172/92 (118) 157/85 (109) 171/92 (118) Pulse Ox 100 100 100 O2 Delivery Ventilator Mechanical Ventilator Ventilator Ventilator 04/19/17 04/19/17 04/19/17 04/19/17 15:00 15:24 16:00 16:00 Temp 97.3 97.3 Pulse 63 70 Resp 12 12 B/P (MAP) 147/78 (101) 152/85 (107) Pulse Ox 100 100 100 O2 Delivery Ventilator Ventilator Ventilator Mechanical Ventilator 04/19/17 04/19/17 04/19/17 04/19/17 17:00 18:00 19:00 19:35 Pulse 66 63 62 Resp 13 12 14 B/P (MAP) 159/90 (113) 163/84 (110) 147/81 (103) Pulse Ox 100 100 100 100 O2 Delivery Ventilator Ventilator Ventilator Ventilator 04/19/17 04/19/17 04/19/17 04/19/17 20:00 20:00 21:00 21:10 Temp 96.1 96.1 Pulse 67 62 Resp 12 12 B/P (MAP) 145/79 (101) 145/77 (99) Pulse Ox 100 100 100 O2 Delivery Ventilator Mechanical Ventilator Ventilator Ventilator 04/19/17 04/19/17 04/19/17 04/20/17 22:00 23:00 23:10 00:00 Pulse 60 65 Resp 12 12 B/P (MAP) 111/66 (81) 155/85 (108) Pulse Ox 100 100 100 O2 Delivery Ventilator Ventilator Ventilator Mechanical Ventilator 04/20/17 04/20/17 04/20/17 04/20/17 00:00 01:00 01:20 02:10 Temp 96.1 96.1 Pulse 71 63 65 Resp 12 12 12 B/P (MAP) 157/57 (90) 136/72 (93) 170/87 (114) Pulse Ox 99 100 100 100 O2 Delivery Ventilator Ventilator Ventilator Ventilator 04/20/17 04/20/17 04/20/17 04/20/17 03:00 03:21 04:00 04:00 Temp 97.4 97.4 Pulse 66 70 Resp 12 12 B/P (MAP) 159/87 (111) 144/80 (101) Pulse Ox 100 100 100 O2 Delivery Ventilator Ventilator Mechanical Ventilator Ventilator 04/20/17 04/20/17 04/20/17 04/20/17 05:00 05:35 06:00 07:00 Pulse 70 72 74 Resp 13 12 12 B/P (MAP) 136/75 (95) 133/71 (91) 132/70 (90) Pulse Ox 100 100 100 100 O2 Delivery Ventilator Ventilator Ventilator Ventilator 04/20/17 04/20/17 04/20/17 04/20/17 07:29 08:15 08:28 08:49 Temp 97.5 97.5 Pulse 70 73 Resp 12 B/P (MAP) 134/74 (94) 134/74 Pulse Ox 100 100 O2 Delivery Ventilator Ventilator Mechanical Ventilator 04/20/17 04/20/17 09:02 09:06 Pulse 67 Resp 12 B/P (MAP) 121/70 (87) Pulse Ox 100 100 O2 Delivery Ventilator Ventilator Intake and Output 04/19/17 04/19/17 04/20/17 15:00 23:00 07:00 Intake Total 1037.5 ml 130 ml 1532 ml Output Total 469 ml 417 ml 256 ml Balance 568.5 ml -287 ml 1276 ml DERIK HESS MD Apr 20, 2017 09:15
--- NOTE | 2017-04-20 09:41 | PDOC ---
PULMONARY PROGRESS NOTES Subjective off sedation does not follow commands Vitals Vital Signs Date Time Temp Pulse Resp B/P (MAP) Pulse Ox O2 Delivery O2 Flow Rate FiO2 04/20/17 09:06 100 Ventilator 04/20/17 09:02 67 12 121/70 (87) 04/20/17 08:15 97.5 97.5 HEENT: Other (nc at perrl, nose clear, orally intubated, neck, no lap, no thyromegaly) Lungs: Clear Cardiovascular: S1, S2 Abdomen: Soft, Non-tender, Other Extremities: No Edema Skin: Warm Labs Laboratory Tests Test 04/18/17 23:59 04/19/17 04:30 04/19/17 08:20 04/20/17 04:30 Urine Opiates Screen Neg (NEG) Urine Methadone Screen Neg (NEG) Urine Barbiturates Neg (NEG) Urine Phencyclidine Screen Neg (NEG) Urine Amphetamine/Methamphetamine Neg (NEG) Urine Benzodiazepines Screen Pos (NEG) Urine Cocaine Screen Neg (NEG) Urine Cannabinoids Screen Neg (NEG) Urine Ethyl Alcohol Neg (NEG) White Blood Count 6.2 x10^3/uL (4.0-11.0) 6.5 x10^3/uL (4.0-11.0) Red Blood Count 3.34 x10^6/uL (4.30-5.70) 3.58 x10^6/uL (4.30-5.70) Hemoglobin 10.5 g/dL (13.0-17.5) 11.3 g/dL (13.0-17.5) Hematocrit 32.1 % (39.0-53.0) 34.3 % (39.0-53.0) Mean Corpuscular Volume 96 fL (79-100) 96 fL (79-100) Mean Corpuscular Hemoglobin 32 pg (25-35) 31 pg (25-35) Mean Corpuscular Hemoglobin Concent 33 g/dL (31-37) 33 g/dL (31-37) Red Cell Distribution Width 16.9 % (11.5-14.5) 16.8 % (11.5-14.5) Platelet Count 43 x10^3/uL (140-400) 42 x10^3/uL (140-400) Neutrophils (%) (Auto) 73 % (31-73) 74 % (31-73) Lymphocytes (%) (Auto) 17 % (24-48) 14 % (24-48) Monocytes (%) (Auto) 9 % (0-9) 11 % (0-9) Eosinophils (%) (Auto) 1 % (0-3) 1 % (0-3) Basophils (%) (Auto) 0 % (0-3) 0 % (0-3) Neutrophils # (Auto) 4.5 x10^3uL (1.8-7.7) 4.8 x10^3uL (1.8-7.7) Lymphocytes # (Auto) 1.1 x10^3/uL (1.0-4.8) 0.9 x10^3/uL (1.0-4.8) Monocytes # (Auto) 0.5 x10^3/uL (0.0-1.1) 0.7 x10^3/uL (0.0-1.1) Eosinophils # (Auto) 0.1 x10^3/uL (0.0-0.7) 0.1 x10^3/uL (0.0-0.7) Basophils # (Auto) 0.0 x10^3/uL (0.0-0.2) 0.0 x10^3/uL (0.0-0.2) Sodium Level 154 mmol/L (136-145) 151 mmol/L (136-145) Potassium Level 3.4 mmol/L (3.5-5.1) 3.3 mmol/L (3.5-5.1) Chloride Level 120 mmol/L (98-107) 115 mmol/L (98-107) Carbon Dioxide Level 29 mmol/L (21-32) 30 mmol/L (21-32) Anion Gap 5 (6-14) 6 (6-14) Blood Urea Nitrogen 24 mg/dL (8-26) 15 mg/dL (8-26) Creatinine 1.2 mg/dL (0.7-1.3) 1.0 mg/dL (0.7-1.3) Estimated GFR (Cockcroft-Gault) 58.9 72.6 Glucose Level 164 mg/dL (70-99) 106 mg/dL (70-99) Calcium Level 8.3 mg/dL (8.5-10.1) 8.2 mg/dL (8.5-10.1) O2 Saturation 99 % (92-99) Arterial Blood pH 7.37 (7.35-7.45) Arterial Blood pCO2 at Patient Temp 46 mmHg (35-46) Arterial Blood pO2 at Patient Temp 195 mmHg (65-108) Arterial Blood HCO3 26 mmol/L (21-28) Arterial Blood Base Excess 1 mmol/L (-3-3) FiO2 40 Test 04/20/17 08:15 O2 Saturation 99 % (92-99) Arterial Blood pH 7.37 (7.35-7.45) Arterial Blood pCO2 at Patient Temp 45 mmHg (35-46) Arterial Blood pO2 at Patient Temp 163 mmHg (65-108) Arterial Blood HCO3 25 mmol/L (21-28) Arterial Blood Base Excess 0 mmol/L (-3-3) FiO2 40 Laboratory Tests Test 04/20/17 04:30 04/20/17 08:15 White Blood Count 6.5 x10^3/uL (4.0-11.0) Red Blood Count 3.58 x10^6/uL (4.30-5.70) Hemoglobin 11.3 g/dL (13.0-17.5) Hematocrit 34.3 % (39.0-53.0) Mean Corpuscular Volume 96 fL (79-100) Mean Corpuscular Hemoglobin 31 pg (25-35) Mean Corpuscular Hemoglobin Concent 33 g/dL (31-37) Red Cell Distribution Width 16.8 % (11.5-14.5) Platelet Count 42 x10^3/uL (140-400) Neutrophils (%) (Auto) 74 % (31-73) Lymphocytes (%) (Auto) 14 % (24-48) Monocytes (%) (Auto) 11 % (0-9) Eosinophils (%) (Auto) 1 % (0-3) Basophils (%) (Auto) 0 % (0-3) Neutrophils # (Auto) 4.8 x10^3uL (1.8-7.7) Lymphocytes # (Auto) 0.9 x10^3/uL (1.0-4.8) Monocytes # (Auto) 0.7 x10^3/uL (0.0-1.1) Eosinophils # (Auto) 0.1 x10^3/uL (0.0-0.7) Basophils # (Auto) 0.0 x10^3/uL (0.0-0.2) Sodium Level 151 mmol/L (136-145) Potassium Level 3.3 mmol/L (3.5-5.1) Chloride Level 115 mmol/L (98-107) Carbon Dioxide Level 30 mmol/L (21-32) Anion Gap 6 (6-14) Blood Urea Nitrogen 15 mg/dL (8-26) Creatinine 1.0 mg/dL (0.7-1.3) Estimated GFR (Cockcroft-Gault) 72.6 Glucose Level 106 mg/dL (70-99) Calcium Level 8.2 mg/dL (8.5-10.1) O2 Saturation 99 % (92-99) Arterial Blood pH 7.37 (7.35-7.45) Arterial Blood pCO2 at Patient Temp 45 mmHg (35-46) Arterial Blood pO2 at Patient Temp 163 mmHg (65-108) Arterial Blood HCO3 25 mmol/L (21-28) Arterial Blood Base Excess 0 mmol/L (-3-3) FiO2 40 Medications Active Scripts Medications Dose Route/Sig Max Daily Dose Days Date Category Montelukast Sodium Tablet (Montelukast Sodium) 10 Mg Tablet 10 Mg PO HS 04/16/17 Reported Zyrtec (Cetirizine Hcl) 10 Mg Tablet 10 Tab PO DAILY 04/16/17 Reported Ibuprofen 400 Mg Tablet 400 Mg PO TID 04/16/17 Reported Keppra (Levetiracetam) 500 Mg Tablet 500 Tab PO BID 04/16/17 Reported Depakote (Divalproex Sodium) 500 Mg Tablet.dr 500 Tab PO BID 04/16/17 Reported Amlodipine Besylate 5 Mg Tablet 5 Mg PO DAILY 04/16/17 Reported Impression . 1. Acute respiratory failure, multifactorial in nature 2. acute/chronic encephalopathy 3. Possible sepsis 4. Hypotension, 5. History of seizure disorder. 6. Dementia. 7. Alzheimer's. 8. RADHA Plan . no change continue the same 1. will maintain off sedation 2. Continue ventilator support for now 3. Protonix for stress ulcer prophylaxis. 4. Lovenox for DVT prophylaxis. 5. His CT of the head reportedly showed small vessel disease, no acute abnormality, repeat CT after extubation 6. ID to follow 7. CXR reviewed 8. follow neuro input NELSON BELL MD Apr 20, 2017 09:41
[2017-04-20] MEDS: IV DEXTROSE 5 %-0.45 % NACL 1,000 ML IV SCH (11:35)
[2017-04-20] MEDS: ENOXAPARIN 40 MG/0.4 ML SYRINGE. SQ SCH (12:00)
[2017-04-20] MEDS: VANCOMYCIN PER PHARMACY MC PRN (12:35)
[2017-04-20] MEDS: VANCOMYCIN 1.25 GM in IV NORMAL SALINE 250ML 250 ML IV SCH (12:50)
--- NOTE | 2017-04-20 14:46 | PDOC ---
PROGRESS NOTES Assessment Assessment Status epilepticus Seizure Metabolic encephalopathy. Respiratory failure. Leukocytosis HTN Bradycardia Hypothyroidism RECOMMENDATIONS/PLAN: Treat medical diseases. Continue IV Keppra and Depakote. Discontinue Vimpat 100 mg IV bid. EEG on 04/19/17: Diffuse encephalopathy. No seizure activity. SUBJECTIVE: Unresponsive. OBJECTIVE: Off sedation for 3 days. ALLERGIES: No known allergies to drugs. FAMILY HISTORY: Not obtainable. SOCIAL HISTORY: He is incarcerated, but completed his sentence. 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 MEDICATIONS: Refer to [facility] REVIEW OF SYSTEMS: See PMx. PHYSICAL EXAMINATION: General appearance in acute distress. HEENT: Normocephalic and nontraumatic. Eyes, nose, ears, and throat are unremarkable. Hearing decrease. Neck is supple. No lymphadenopathy. No Crepitus. Cardiovascular: S1, S2, regular rate and rhythm. Pulmonary: Clear to auscultation bilaterally. Abdomen: Bowel sounds are positive. Extremities: No rash, lesions, or edema. No restriction of range of motion NEUROLOGICAL EXAMINATION: Unresponsive. On vent. Off sedation for 3 days. Not oriented to time, place and person. PERRL. EOMI not elicited. CN: no focal findings. Muscle tone: fluctuated. Muscle strength: Minimal movements noted to stimuli. DTR: 1 Plantar reflex: Neutral response bilaterally Gait: not examined in bed. Sensory exam: Minimal response. Not able to access cerebellar signs. Objective Objective Vital Signs Date Time Temp Pulse Resp B/P (MAP) Pulse Ox O2 Delivery O2 Flow Rate FiO2 04/20/17 14:03 80 12 158/84 (108) 100 Ventilator 04/20/17 12:03 97.8 97.8 Intake and Output 04/20/17 07:00 Intake Total 2699.5 ml Output Total 1142 ml Balance 1557.5 ml Intake Oral 0 ml IV Total 1215.5 ml Tube Feeding 1014 ml Other 470 ml Output Urine Total 1142 ml Vitals Signs Vitals VS - Last 72 Hours, by Label Date Time Temp Pulse Resp B/P (MAP) Pulse Ox O2 Delivery O2 Flow Rate FiO2 04/20/17 14:03 80 12 158/84 (108) 100 Ventilator 04/20/17 13:15 77 13 155/85 (108) 100 Ventilator 04/20/17 13:00 100 Ventilator 04/20/17 12:03 97.8 75 12 149/80 (103) 100 Ventilator 97.8 04/20/17 11:55 Mechanical Ventilator 04/20/17 11:20 100 Ventilator 04/20/17 11:12 72 12 140/75 (96) 100 Ventilator 04/20/17 10:13 73 13 137/70 (92) 100 Ventilator 04/20/17 09:06 100 Ventilator 04/20/17 09:02 67 12 121/70 (87) 100 Ventilator 04/20/17 08:49 73 134/74 04/20/17 08:28 Mechanical Ventilator 04/20/17 08:15 97.5 70 12 134/74 (94) 100 Ventilator 97.5 04/20/17 07:29 100 Ventilator 04/20/17 07:00 74 12 132/70 (90) 100 Ventilator 04/20/17 06:00 72 12 133/71 (91) 100 Ventilator 04/20/17 05:35 100 Ventilator 04/20/17 05:00 70 13 136/75 (95) 100 Ventilator 04/20/17 04:00 97.4 70 12 144/80 (101) 100 Ventilator 97.4 04/20/17 04:00 Mechanical Ventilator 04/20/17 03:21 100 Ventilator 04/20/17 03:00 66 12 159/87 (111) 100 Ventilator 04/20/17 02:10 65 12 170/87 (114) 100 Ventilator 04/20/17 01:20 100 Ventilator 04/20/17 01:00 63 12 136/72 (93) 100 Ventilator 04/20/17 00:00 96.1 71 12 157/57 (90) 99 Ventilator 96.1 04/20/17 00:00 Mechanical Ventilator 04/19/17 23:10 100 Ventilator 04/19/17 23:00 65 12 155/85 (108) 100 Ventilator 04/19/17 22:00 60 12 111/66 (81) 100 Ventilator 04/19/17 21:10 100 Ventilator 04/19/17 21:00 62 12 145/77 (99) 100 Ventilator 04/19/17 20:00 Mechanical Ventilator 04/19/17 20:00 96.1 67 12 145/79 (101) 100 Ventilator 96.1 04/19/17 19:35 100 Ventilator 04/19/17 19:00 62 14 147/81 (103) 100 Ventilator 04/19/17 18:00 63 12 163/84 (110) 100 Ventilator 04/19/17 17:00 66 13 159/90 (113) 100 Ventilator 04/19/17 16:00 Mechanical Ventilator 04/19/17 16:00 97.3 70 12 152/85 (107) 100 Ventilator 97.3 04/19/17 15:24 100 Ventilator 04/19/17 15:00 63 12 147/78 (101) 100 Ventilator 04/19/17 14:00 66 12 171/92 (118) 100 Ventilator 04/19/17 13:00 69 12 157/85 (109) 100 Ventilator 04/19/17 12:00 Mechanical Ventilator 04/19/17 12:00 97.8 62 12 172/92 (118) 100 Ventilator 97.8 04/19/17 11:17 100 Ventilator 04/19/17 11:00 62 12 138/35 (69) 100 Ventilator 04/19/17 10:00 65 13 160/88 (112) 100 Ventilator 04/19/17 09:51 100 Ventilator 04/19/17 09:00 77 12 136/83 (100) 100 Ventilator 04/19/17 08:55 75 156/80 04/19/17 08:00 Mechanical Ventilator 04/19/17 08:00 97.5 66 12 156/80 (105) 100 Ventilator 97.5 04/19/17 08:00 100 Ventilator 04/19/17 07:00 60 12 124/70 (88) 100 Ventilator Laboratory Laboratory Laboratory Tests Test 04/20/17 04:30 04/20/17 08:15 04/20/17 11:40 White Blood Count 6.5 x10^3/uL (4.0-11.0) Red Blood Count 3.58 x10^6/uL (4.30-5.70) Hemoglobin 11.3 g/dL (13.0-17.5) Hematocrit 34.3 % (39.0-53.0) Mean Corpuscular Volume 96 fL (79-100) Mean Corpuscular Hemoglobin 31 pg (25-35) Mean Corpuscular Hemoglobin Concent 33 g/dL (31-37) Red Cell Distribution Width 16.8 % (11.5-14.5) Platelet Count 42 x10^3/uL (140-400) Neutrophils (%) (Auto) 74 % (31-73) Lymphocytes (%) (Auto) 14 % (24-48) Monocytes (%) (Auto) 11 % (0-9) Eosinophils (%) (Auto) 1 % (0-3) Basophils (%) (Auto) 0 % (0-3) Neutrophils # (Auto) 4.8 x10^3uL (1.8-7.7) Lymphocytes # (Auto) 0.9 x10^3/uL (1.0-4.8) Monocytes # (Auto) 0.7 x10^3/uL (0.0-1.1) Eosinophils # (Auto) 0.1 x10^3/uL (0.0-0.7) Basophils # (Auto) 0.0 x10^3/uL (0.0-0.2) Sodium Level 151 mmol/L (136-145) Potassium Level 3.3 mmol/L (3.5-5.1) Chloride Level 115 mmol/L (98-107) Carbon Dioxide Level 30 mmol/L (21-32) Anion Gap 6 (6-14) Blood Urea Nitrogen 15 mg/dL (8-26) Creatinine 1.0 mg/dL (0.7-1.3) Estimated GFR (Cockcroft-Gault) 72.6 Glucose Level 106 mg/dL (70-99) Calcium Level 8.2 mg/dL (8.5-10.1) O2 Saturation 99 % (92-99) Arterial Blood pH 7.37 (7.35-7.45) Arterial Blood pCO2 at Patient Temp 45 mmHg (35-46) Arterial Blood pO2 at Patient Temp 163 mmHg (65-108) Arterial Blood HCO3 25 mmol/L (21-28) Arterial Blood Base Excess 0 mmol/L (-3-3) FiO2 40 Vancomycin Level Trough 6.5 mcg/mL (10.0-20.0) Vancomycin Last Dose Date 04/19/17 Vancomycin Last Dose Time 1200 Microbiology 04/17/17 Blood Culture - Preliminary, Resulted NO GROWTH AFTER 3 DAYS 04/17/17 Gram Stain - Final, Complete 04/17/17 Urine Culture - Final, Complete 04/17/17 Urine Culture Result 1 (ABDULAZIZ) - Final, Complete Medication Medications Current Medications Vancomycin HCl 1 each 1X ONCE MC ; Start 6/21/17 at 11:30; Stop 04/20/17 at 11 :31; Status DC Vancomycin HCl 1 each 1X ONCE MC ; Start 04/22/17 at 00:30; Stop 04/22/17 at 00 :31 Vancomycin HCl 1.25 gm/Sodium Chloride 250 ml @ 167 mls/hr Q12H IV Last administered on 04/20/17t 12:50; Start 04/20/17 at 13:00 Comment Review of Relevant I have reviewed the following items campos (where applicable) has been applied. AI MAJANO MD Apr 20, 2017 14:46
--- NOTE | 2017-04-20 15:52 | PDOC2 ---
PALLIATIVE CARE Palliative Care Note Palliative Care Consult requested to address plan of care. Diagnosis: Respiratory Failure: Vent 40%; encephalopathy; possible sepsis; history of seizure disorder, dementia, RADHA Patient is from [facility] Per Jessica Chapman can receive patient information, can visit the patient , and is listed as his emergency contact, therefore is designated as his decision maker. Met briefly with Jessica at bedside. Pipo MIMS has spoke with Jessica regarding plan of care. No decisions made. Plan to meet with Jessica at 11am Tuesday to discuss goals of care. RAMÓN PUGA Apr 20, 2017 15:52
[2017-04-20] MEDS: hydrALAZINE 20 MG/ML VIAL. IVP PRN (18:08)
[2017-04-20] MEDS: MONTELUKAST SODIUM 10 MG TABLET. PO SCH (20:39)
[2017-04-21] VITALS (24 sets, daily range): BP systolic 81–173; BP diastolic 44–91
[2017-04-21] MEDS: hydrALAZINE 20 MG/ML VIAL. IVP PRN (00:18)
[2017-04-21] MEDS: VANCOMYCIN 1.25 GM in IV NORMAL SALINE 250ML 250 ML IV SCH ×2 (03:49→14:51)
[2017-04-21 04:21] LABS: BASO % 0 % (0-3); EOS % 0 % (0-3); LYMPH # 0.6 x10^3/uL (1.0-4.8); LYMPH % 4 % (24-48); MEAN CORPUSCULAR HEMOGLOBIN 31 pg (25-35); MEAN CORPUSCULAR HGB CONC 34 g/dL (31-37); MEAN CORPUSCULAR VOLUME 93 fL (79-100); MONO % 7 % (0-9); NEUT % 89 % (31-73); PLATELET COUNT 57 x10^3/uL (140-400); RED BLOOD COUNT 3.23 x10^6/uL (4.30-5.70); RED CELL DISTRIBUTION WIDTH 16.6 % (11.5-14.5); WHITE BLOOD COUNT 14.4 x10^3/uL (4.0-11.0)
[2017-04-21 04:36] LABS: CALCIUM 7.7 mg/dL (8.5-10.1); GFR 72.6
[2017-04-21 04:48] LABS: POTASSIUM 2.8 mmol/L (3.5-5.1)
[2017-04-21] MEDS: POTASSIUM CHLORIDE 10MEQ 100 ML IV SCH ×4 (05:42→13:06)
--- NOTE | 2017-04-21 07:53 | PDOC ---
Infectious Disease Note Subjective Subjective unresponsive ROS ROS unable to do Vital Sign Vital Signs Vital Signs Date Time Temp Pulse Resp B/P (MAP) Pulse Ox O2 Delivery O2 Flow Rate FiO2 04/21/17 07:24 100 Ventilator 04/21/17 06:00 108 20 137/65 (89) 04/21/17 04:00 98.9 98.9 Physical Exam PHYSICAL EXAM GENERAL: NAD, on vent HEENT: PERRL, OC/OP NECK: Supple, no JVD, no LN LUNGS: Clear HEART: S1S2, no gallop, no murmur ABD: Soft, NT, no organomegaly, no rebound EXT: No edema, no cyanosis INFUSION NURSE: unresponsive on vent SKIN: No rash IV: ok Labs Lab Laboratory Tests Test 04/20/17 08:15 04/20/17 11:40 04/21/17 03:55 O2 Saturation 99 % (92-99) Arterial Blood pH 7.37 (7.35-7.45) Arterial Blood pCO2 at Patient Temp 45 mmHg (35-46) Arterial Blood pO2 at Patient Temp 163 mmHg (65-108) Arterial Blood HCO3 25 mmol/L (21-28) Arterial Blood Base Excess 0 mmol/L (-3-3) FiO2 40 Vancomycin Level Trough 6.5 mcg/mL (10.0-20.0) Vancomycin Last Dose Date 04/19/17 Vancomycin Last Dose Time 1200 White Blood Count 14.4 x10^3/uL (4.0-11.0) Red Blood Count 3.23 x10^6/uL (4.30-5.70) Hemoglobin 10.0 g/dL (13.0-17.5) Hematocrit 30.0 % (39.0-53.0) Mean Corpuscular Volume 93 fL (79-100) Mean Corpuscular Hemoglobin 31 pg (25-35) Mean Corpuscular Hemoglobin Concent 34 g/dL (31-37) Red Cell Distribution Width 16.6 % (11.5-14.5) Platelet Count 57 x10^3/uL (140-400) Neutrophils (%) (Auto) 89 % (31-73) Lymphocytes (%) (Auto) 4 % (24-48) Monocytes (%) (Auto) 7 % (0-9) Eosinophils (%) (Auto) 0 % (0-3) Basophils (%) (Auto) 0 % (0-3) Neutrophils # (Auto) 12.8 x10^3uL (1.8-7.7) Lymphocytes # (Auto) 0.6 x10^3/uL (1.0-4.8) Monocytes # (Auto) 1.0 x10^3/uL (0.0-1.1) Eosinophils # (Auto) 0.0 x10^3/uL (0.0-0.7) Basophils # (Auto) 0.0 x10^3/uL (0.0-0.2) Sodium Level 147 mmol/L (136-145) Potassium Level 2.8 mmol/L (3.5-5.1) Chloride Level 111 mmol/L (98-107) Carbon Dioxide Level 30 mmol/L (21-32) Anion Gap 6 (6-14) Blood Urea Nitrogen 17 mg/dL (8-26) Creatinine 1.0 mg/dL (0.7-1.3) Estimated GFR (Cockcroft-Gault) 72.6 Glucose Level 100 mg/dL (70-99) Calcium Level 7.7 mg/dL (8.5-10.1) Objective Assessment BC + G + cocci, ? contaminant, ID pending Respiratory failure Dementia Encephalopathy Leukocytosis Plan Plan of Care vanc, change rocephine to zosyn stool for c diff supportive care consider hospice HEAVENLY BOTELLO MD Apr 21, 2017 07:53
[2017-04-21 08:18] LABS: PLT ESTIMATE DECREASED (ADEQUATE)
[2017-04-21 08:19] LABS: ANISOCYTOSIS SLIGHT
--- NOTE | 2017-04-21 09:09 | PDOC ---
PROGRESS NOTES Chief Complaint Chief Complaint A/P 1. PERSISTENT encephalopathy, multifactorial, sepsis, etc 2. Acute hypoxic respiratory failure: on mechanical ventilation 3. GPC bacteremia - contaminant? 4. RADHA: VMN 5. History of dementia, unknown type. 6. Bradycardia, sinus.: resolved. 7. Hypernatremia: on a vented pt 8. Thrombocytopenia in the background of sepsis 9. INcarcerated-inmate 10. HYpernatremia 11. Hypokalemia 12. AOCD History of Present Illness History of Present Illness Seen on ICU Vent but no sedation and not responsive OTher notes reviewed MAR reviewed K low 2.8. CRea 1.0 HGb 10, WBC 14, no fevers PLatelets 57 no bleeding PLAn: Getting IV lasix 40 total now Awaiting [facility] decision etc- unresponsive, no QOL PAlliative on case [facility] meet tue 11 AM set up SUpprotive care Vitals Vitals Vital Signs Date Time Temp Pulse Resp B/P (MAP) Pulse Ox O2 Delivery O2 Flow Rate FiO2 04/21/17 08:25 100 Ventilator 04/21/17 06:00 108 20 137/65 (89) 04/21/17 04:00 98.9 98.9 Physical Exam General: Other (OFF SEDATION, INTUBATED, non verbal) Heart: Normal S1, Normal S2 Lungs: Clear Abdomen: Normal bowel sounds Extremities: No clubbing Skin: No rashes Labs LABS Laboratory Tests Test 04/20/17 11:40 04/21/17 03:55 Vancomycin Level Trough 6.5 mcg/mL (10.0-20.0) Vancomycin Last Dose Date 04/19/17 Vancomycin Last Dose Time 1200 White Blood Count 14.4 x10^3/uL (4.0-11.0) Red Blood Count 3.23 x10^6/uL (4.30-5.70) Hemoglobin 10.0 g/dL (13.0-17.5) Hematocrit 30.0 % (39.0-53.0) Mean Corpuscular Volume 93 fL (79-100) Mean Corpuscular Hemoglobin 31 pg (25-35) Mean Corpuscular Hemoglobin Concent 34 g/dL (31-37) Red Cell Distribution Width 16.6 % (11.5-14.5) Platelet Count 57 x10^3/uL (140-400) Neutrophils (%) (Auto) 89 % (31-73) Lymphocytes (%) (Auto) 4 % (24-48) Monocytes (%) (Auto) 7 % (0-9) Eosinophils (%) (Auto) 0 % (0-3) Basophils (%) (Auto) 0 % (0-3) Neutrophils # (Auto) 12.8 x10^3uL (1.8-7.7) Lymphocytes # (Auto) 0.6 x10^3/uL (1.0-4.8) Monocytes # (Auto) 1.0 x10^3/uL (0.0-1.1) Eosinophils # (Auto) 0.0 x10^3/uL (0.0-0.7) Basophils # (Auto) 0.0 x10^3/uL (0.0-0.2) Segmented Neutrophils % 26 % (35-66) Band Neutrophils % 63 % (0-9) Lymphocytes % 4 % (24-48) Monocytes % 2 % (0-10) Metamyelocytes % 3 % (0-0) Myelocytes % 2 % (0-0) Dohle Bodies Present Platelet Estimate Decreased (ADEQUATE) Large Platelets Present Anisocytosis Slight Sodium Level 147 mmol/L (136-145) Potassium Level 2.8 mmol/L (3.5-5.1) Chloride Level 111 mmol/L (98-107) Carbon Dioxide Level 30 mmol/L (21-32) Anion Gap 6 (6-14) Blood Urea Nitrogen 17 mg/dL (8-26) Creatinine 1.0 mg/dL (0.7-1.3) Estimated GFR (Cockcroft-Gault) 72.6 Glucose Level 100 mg/dL (70-99) Calcium Level 7.7 mg/dL (8.5-10.1) Review of Systems Review of Systems encephalopathic Comment Review of Relevant I have reviewed the following items campos (where applicable) has been applied. Labs Laboratory Tests Test 04/20/17 04:30 04/20/17 08:15 04/20/17 11:40 04/21/17 03:55 White Blood Count 6.5 x10^3/uL (4.0-11.0) 14.4 x10^3/uL (4.0-11.0) Red Blood Count 3.58 x10^6/uL (4.30-5.70) 3.23 x10^6/uL (4.30-5.70) Hemoglobin 11.3 g/dL (13.0-17.5) 10.0 g/dL (13.0-17.5) Hematocrit 34.3 % (39.0-53.0) 30.0 % (39.0-53.0) Mean Corpuscular Volume 96 fL (79-100) 93 fL (79-100) Mean Corpuscular Hemoglobin 31 pg (25-35) 31 pg (25-35) Mean Corpuscular Hemoglobin Concent 33 g/dL (31-37) 34 g/dL (31-37) Red Cell Distribution Width 16.8 % (11.5-14.5) 16.6 % (11.5-14.5) Platelet Count 42 x10^3/uL (140-400) 57 x10^3/uL (140-400) Neutrophils (%) (Auto) 74 % (31-73) 89 % (31-73) Lymphocytes (%) (Auto) 14 % (24-48) 4 % (24-48) Monocytes (%) (Auto) 11 % (0-9) 7 % (0-9) Eosinophils (%) (Auto) 1 % (0-3) 0 % (0-3) Basophils (%) (Auto) 0 % (0-3) 0 % (0-3) Neutrophils # (Auto) 4.8 x10^3uL (1.8-7.7) 12.8 x10^3uL (1.8-7.7) Lymphocytes # (Auto) 0.9 x10^3/uL (1.0-4.8) 0.6 x10^3/uL (1.0-4.8) Monocytes # (Auto) 0.7 x10^3/uL (0.0-1.1) 1.0 x10^3/uL (0.0-1.1) Eosinophils # (Auto) 0.1 x10^3/uL (0.0-0.7) 0.0 x10^3/uL (0.0-0.7) Basophils # (Auto) 0.0 x10^3/uL (0.0-0.2) 0.0 x10^3/uL (0.0-0.2) Sodium Level 151 mmol/L (136-145) 147 mmol/L (136-145) Potassium Level 3.3 mmol/L (3.5-5.1) 2.8 mmol/L (3.5-5.1) Chloride Level 115 mmol/L (98-107) 111 mmol/L (98-107) Carbon Dioxide Level 30 mmol/L (21-32) 30 mmol/L (21-32) Anion Gap 6 (6-14) 6 (6-14) Blood Urea Nitrogen 15 mg/dL (8-26) 17 mg/dL (8-26) Creatinine 1.0 mg/dL (0.7-1.3) 1.0 mg/dL (0.7-1.3) Estimated GFR (Cockcroft-Gault) 72.6 72.6 Glucose Level 106 mg/dL (70-99) 100 mg/dL (70-99) Calcium Level 8.2 mg/dL (8.5-10.1) 7.7 mg/dL (8.5-10.1) O2 Saturation 99 % (92-99) Arterial Blood pH 7.37 (7.35-7.45) Arterial Blood pCO2 at Patient Temp 45 mmHg (35-46) Arterial Blood pO2 at Patient Temp 163 mmHg (65-108) Arterial Blood HCO3 25 mmol/L (21-28) Arterial Blood Base Excess 0 mmol/L (-3-3) FiO2 40 Vancomycin Level Trough 6.5 mcg/mL (10.0-20.0) Vancomycin Last Dose Date 04/19/17 Vancomycin Last Dose Time 1200 Segmented Neutrophils % 26 % (35-66) Band Neutrophils % 63 % (0-9) Lymphocytes % 4 % (24-48) Monocytes % 2 % (0-10) Metamyelocytes % 3 % (0-0) Myelocytes % 2 % (0-0) Dohle Bodies Present Platelet Estimate Decreased (ADEQUATE) Large Platelets Present Anisocytosis Slight Laboratory Tests Test 04/20/17 11:40 04/21/17 03:55 Vancomycin Level Trough 6.5 mcg/mL (10.0-20.0) Vancomycin Last Dose Date 04/19/17 Vancomycin Last Dose Time 1200 White Blood Count 14.4 x10^3/uL (4.0-11.0) Red Blood Count 3.23 x10^6/uL (4.30-5.70) Hemoglobin 10.0 g/dL (13.0-17.5) Hematocrit 30.0 % (39.0-53.0) Mean Corpuscular Volume 93 fL (79-100) Mean Corpuscular Hemoglobin 31 pg (25-35) Mean Corpuscular Hemoglobin Concent 34 g/dL (31-37) Red Cell Distribution Width 16.6 % (11.5-14.5) Platelet Count 57 x10^3/uL (140-400) Neutrophils (%) (Auto) 89 % (31-73) Lymphocytes (%) (Auto) 4 % (24-48) Monocytes (%) (Auto) 7 % (0-9) Eosinophils (%) (Auto) 0 % (0-3) Basophils (%) (Auto) 0 % (0-3) Neutrophils # (Auto) 12.8 x10^3uL (1.8-7.7) Lymphocytes # (Auto) 0.6 x10^3/uL (1.0-4.8) Monocytes # (Auto) 1.0 x10^3/uL (0.0-1.1) Eosinophils # (Auto) 0.0 x10^3/uL (0.0-0.7) Basophils # (Auto) 0.0 x10^3/uL (0.0-0.2) Segmented Neutrophils % 26 % (35-66) Band Neutrophils % 63 % (0-9) Lymphocytes % 4 % (24-48) Monocytes % 2 % (0-10) Metamyelocytes % 3 % (0-0) Myelocytes % 2 % (0-0) Dohle Bodies Present Platelet Estimate Decreased (ADEQUATE) Large Platelets Present Anisocytosis Slight Sodium Level 147 mmol/L (136-145) Potassium Level 2.8 mmol/L (3.5-5.1) Chloride Level 111 mmol/L (98-107) Carbon Dioxide Level 30 mmol/L (21-32) Anion Gap 6 (6-14) Blood Urea Nitrogen 17 mg/dL (8-26) Creatinine 1.0 mg/dL (0.7-1.3) Estimated GFR (Cockcroft-Gault) 72.6 Glucose Level 100 mg/dL (70-99) Calcium Level 7.7 mg/dL (8.5-10.1) Microbiology 04/17/17 Blood Culture - Preliminary, Resulted NO GROWTH AFTER 3 DAYS 04/17/17 Gram Stain - Final, Complete 04/17/17 Urine Culture - Final, Complete 04/17/17 Urine Culture Result 1 (ABDULAZIZ) - Final, Complete Medications Current Medications Lorazepam (Ativan) 1 mg PRN Q1HR PRN IV ANXIETY / AGITATION; Start 04/16/17 at 09:30 Acetaminophen (Tylenol) 325 mg PRN Q6HRS PRN PO MILD PAIN / TEMP; Start at 11:00 Acetaminophen/ Hydrocodone Bitart (Lortab 5/325) 1 tab PRN Q6HRS PRN PO MODERATE TO SEVERE PAIN; Start 04/16/17 at 11:00 Hydralazine HCl (Apresoline) 10 mg PRN Q4HRS PRN IVP ELEVATED BP, SEE COMMENTS Last administered on 04/21/17 00:18; Start 04/16/17 at 11:00 Ondansetron HCl (Zofran) 4 mg PRN Q8HRS PRN IV NAUSEA/VOMITING; Start 04/16/17 at 11:00 Albuterol Sulfate (Ventolin Neb Soln) 2.5 mg PRN Q4HRS PRN NEB SHORTNESS OF BREATH Last administered on 04/18/17 16:56; Start 04/16/17 at 11:00 Amlodipine Besylate (Norvasc) 5 mg DAILY PO Last administered on 04/20/17 08: 49; Start 04/16/17 at 12:00 Cetirizine HCl (ZyrTEC) 10 mg DAILY PO Last administered on 04/20/17 08:49; Start 04/16/17 at 12:00 Divalproex Sodium (Depakote) 500 mg BID PO ; Start 04/16/17 at 12:00; Status Cancel Levetiracetam (Keppra) 500 mg BID PO ; Start 04/16/17 at 12:00; Stop 04/16/17 at 12:13; Status DC Montelukast Sodium (Singulair) 10 mg HS PO Last administered on 04/20/17 20:39 ; Start 04/16/17 at 21:00 Levetiracetam (Keppra) 500 mg 1X ONCE PO ; Start 04/17/17 at 12:00; Stop at 12:00; Status DC Levetiracetam 500 mg/Sodium Chloride 100 ml @ 400 mls/hr Q12HR IV Last administered on 04/16/17 12:52; Start 04/16/17 at 12:00; Stop 04/16/17 at 16:28 ; Status DC Valproic Acid 500 mg/Sodium Chloride 55 ml @ 55 mls/hr Q12HR IV Last administered on 04/20/17 20:40; Start 04/16/17 at 12:00 Levetiracetam 1000 mg/Sodium Chloride 110 ml @ 400 mls/hr Q12H IV Last administered on 04/17/17 09:35; Start 04/16/17 at 21:30; Stop 04/17/17 at 10:35 ; Status DC Levetiracetam 500 mg/Sodium Chloride 100 ml @ 400 mls/hr 1X ONCE IV Last administered on 04/16/17 16:54; Start 04/16/17 at 17:00; Stop 04/16/17 at 17:14 ; Status DC Lacosamide 100 mg/ Sodium Chloride 60 ml @ 120 mls/hr BID IV Last administered on 04/20/17 08:50; Start 04/16/17 at 21:00; Stop 04/20/17 at 14:44 ; Status DC Lacosamide 100 mg/ Sodium Chloride 60 ml @ 120 mls/hr 1X ONCE IV Last administered on 04/16/17 16:55; Start 04/16/17 at 17:30; Stop 04/16/17 at 17:59 ; Status DC Pantoprazole Sodium (Protonix) 40 mg DAILYAC PO Last administered on 04/17/17 09:32; Start 04/16/17 at 17:00; Stop 04/19/17 at 10:48; Status DC Sodium Chloride 1,000 ml @ 1,000 mls/hr 1X ONCE IV Last administered on 00:48; Start 04/17/17 at 01:00; Stop 04/17/17 at 01:59; Status DC Norepinephrine Bitartrate 250 ml @ 0 mls/hr CONT PRN IV SEE I/O RECORD Last administered on 04/17/17 01:25; Start 04/17/17 at 00:45 Midazolam HCl 100 ml @ 0 mls/hr CONT PRN IV SEE I/O RECORD; Start 04/17/17 at 01:00 Ceftriaxone Sodium 1 gm/ Sodium Chloride 50 ml @ 100 mls/hr Q24H IV Last administered on 04/20/17 08:50; Start 04/17/17 at 09:00; Stop 04/21/17 at 07:51 ; Status DC Levetiracetam 750 mg/Sodium Chloride 107.5 ml @ 440 mls/hr Q12HR IV Last administered on 04/20/17 20:39; Start 04/17/17 at 21:00 Sodium Chloride 1,000 ml @ 75 mls/hr [id number] IV ; Start 04/17/17 at 13:00; Stop 04/17/17 at 13:02; Status DC Dextrose/Sodium Chloride 1,000 ml @ 75 mls/hr [id number] IV Last administered on 04/18/17 20:42; Start 04/17/17 at 13:15; Stop 04/19/17 at 08:03; Status DC Vancomycin HCl (Vanco Per Pharmacy) 1 each PRN DAILY PRN MC SEE COMMENTS Last administered on 04/20/17 12:35; Start 04/18/17 at 10:15 Vancomycin HCl 2 gm/Sodium Chloride 500 ml @ 250 mls/hr 1X ONCE IV Last administered on 04/18/17 12:13; Start 04/18/17 at 10:30; Stop 04/18/17 at 12:29 ; Status DC Vancomycin HCl 1.25 gm/Sodium Chloride 250 ml @ 167 mls/hr Q24H IV Last administered on 04/19/17 11:22; Start 04/19/17 at 12:00; Stop 04/20/17 at 12:31 ; Status DC Vancomycin HCl 1 each 1X ONCE MC ; Start 04/20/17 at 11:30; Stop 04/20/17 at 11 :31; Status DC Chlorhexidine Gluconate (Peridex) 15 ml BID SWSP Last administered on 20:39; Start 04/18/17 at 21:00 Haloperidol Lactate (Haldol) 5 mg PRN Q6HRS PRN IVP AGITATION Last administered on 04/18/17 22:18; Start 04/18/17 at 16:30 Scopolamine (Transderm-Scop) 1 patch Q3DAYS TD Last administered on 04/18/17 20:39; Start 04/18/17 at 20:00 Pantoprazole Sodium (Protonix Vial) 40 mg DAILYAC IVP Last administered on 04/20 08:49; Start 04/19/17 at 11:00 Enoxaparin Sodium (Lovenox 40mg Syringe) 40 mg Q24H SQ Last administered on 12:00; Start 04/19/17 at 12:00; Stop 04/20/17 at 12:48; Status DC Dextrose/Sodium Chloride 1,000 ml @ 45 mls/hr [id number] IV Last administered on 04/20/17 11:35; Start 04/19/17 at 12:00; Stop 04/20/17 at 11:59; Status DC Vancomycin HCl 1.25 gm/Sodium Chloride 250 ml @ 167 mls/hr Q12H IV Last administered on 04/21/17 03:49; Start 04/20/17 at 13:00 Vancomycin HCl 1 each 1X ONCE MC ; Start 04/22/17 at 00:30; Stop 04/22/17 at 00 :31 Potassium Chloride 100 ml @ 100 mls/hr Q1H IV Last administered on 04/21/17 05:42; Start 04/21/17 at 05:30; Stop 04/21/17 at 09:29 Piperacillin Sod/ Tazobactam Sod 3.375 gm/Sodium Chloride 50 ml @ 100 mls/hr Q6HRS IV ; Start 04/21/17 at 08:00 Active Scripts Active Reported Montelukast Sodium Tablet (Montelukast Sodium) 10 Mg Tablet 10 Mg PO HS Zyrtec (Cetirizine Hcl) 10 Mg Tablet 10 Tab PO DAILY Ibuprofen 400 Mg Tablet 400 Mg PO TID Keppra (Levetiracetam) 500 Mg Tablet 500 Tab PO BID Depakote (Divalproex Sodium) 500 Mg Tablet.dr 500 Tab PO BID Amlodipine Besylate 5 Mg Tablet 5 Mg PO DAILY Vitals/I & O Vital Sign - Last 24 Hours 04/20/17 04/20/17 04/20/17 04/20/17 09:06 10:13 11:12 11:20 Pulse 73 72 Resp 13 12 B/P (MAP) 137/70 (92) 140/75 (96) Pulse Ox 100 100 100 100 O2 Delivery Ventilator Ventilator Ventilator Ventilator 04/20/17 04/20/17 04/20/17 04/20/17 11:55 12:03 13:00 13:15 Temp 97.8 97.8 Pulse 75 77 Resp 12 13 B/P (MAP) 149/80 (103) 155/85 (108) Pulse Ox 100 100 100 O2 Delivery Mechanical Ventilator Ventilator Ventilator Ventilator 04/20/17 04/20/17 04/20/17 04/20/17 14:03 15:19 15:36 16:07 Pulse 80 83 Resp 12 10 B/P (MAP) 158/84 (108) 151/82 (105) Pulse Ox 100 100 100 O2 Delivery Ventilator Ventilator Ventilator Mechanical Ventilator 04/20/17 04/20/17 04/20/17 04/20/17 16:08 16:55 17:12 18:05 Temp 97.5 97.5 Pulse 87 88 85 Resp 12 10 15 B/P (MAP) 160/86 (110) 173/97 (122) 165/105 (125) Pulse Ox 100 100 100 100 O2 Delivery Ventilator Ventilator Ventilator Ventilator 04/20/17 04/20/17 04/20/17 04/20/17 18:08 19:00 20:00 20:00 Temp 98.9 98.9 Pulse 85 99 98 Resp 15 13 B/P (MAP) 165/105 152/89 (110) 153/75 (101) Pulse Ox 100 100 O2 Delivery Ventilator Mechanical Ventilator Ventilator 04/20/17 04/20/17 04/20/17 04/20/17 20:01 21:00 21:46 22:00 Pulse 102 102 Resp 17 15 B/P (MAP) 172/82 (112) 161/80 (107) Pulse Ox 100 100 100 100 O2 Delivery Ventilator Ventilator Ventilator Ventilator 04/20/17 04/21/17 04/21/17 04/21/17 23:00 00:00 00:00 00:18 Temp 99.2 99.2 Pulse 104 109 Resp 14 14 B/P (MAP) 162/93 (116) 173/91 (118) Pulse Ox 100 100 100 O2 Delivery Ventilator Ventilator Mechanical Ventilator Ventilator 04/21/17 04/21/17 04/21/17 04/21/17 00:18 01:00 02:00 02:09 Pulse 107 112 106 Resp 20 13 B/P (MAP) 173/91 139/74 (95) 124/64 (84) Pulse Ox 100 100 100 O2 Delivery Ventilator Ventilator Ventilator 04/21/17 04/21/17 04/21/17 04/21/17 03:00 04:00 04:00 04:06 Temp 98.9 98.9 Pulse 104 104 Resp 15 14 B/P (MAP) 126/67 (86) 126/74 (91) Pulse Ox 100 100 100 O2 Delivery Ventilator Ventilator Mechanical Ventilator Ventilator 04/21/17 04/21/17 04/21/17 04/21/17 05:00 05:37 06:00 07:24 Pulse 112 108 Resp 14 20 B/P (MAP) 140/74 (96) 137/65 (89) Pulse Ox 100 100 100 100 O2 Delivery Ventilator Ventilator Ventilator Ventilator 04/21/17 08:25 Pulse Ox 100 O2 Delivery Ventilator Intake and Output 04/20/17 04/20/17 04/21/17 15:00 23:00 07:00 Intake Total 862 ml 2360 ml 2437 ml Output Total 377 ml 525 ml 355 ml Balance 485 ml 1835 ml 2082 ml SELMA DONOVAN MD Apr 21, 2017 09:09
--- NOTE | 2017-04-21 09:45 | PDOC ---
PULMONARY PROGRESS NOTES Subjective off sedation does not follow commands DOES ASSIST VENT Vitals Vital Signs Date Time Temp Pulse Resp B/P (MAP) Pulse Ox O2 Delivery O2 Flow Rate FiO2 04/21/17 08:25 100 Ventilator 04/21/17 06:00 108 20 137/65 (89) 04/21/17 04:00 98.9 98.9 HEENT: Other (nc at perrl, nose clear, orally intubated, neck, no lap, no thyromegaly) Lungs: Clear Cardiovascular: S1, S2 Abdomen: Soft, Non-tender, Other Extremities: No Edema Skin: Warm Labs Laboratory Tests Test 04/20/17 04:30 04/20/17 08:15 04/20/17 11:40 04/21/17 03:55 White Blood Count 6.5 x10^3/uL (4.0-11.0) 14.4 x10^3/uL (4.0-11.0) Red Blood Count 3.58 x10^6/uL (4.30-5.70) 3.23 x10^6/uL (4.30-5.70) Hemoglobin 11.3 g/dL (13.0-17.5) 10.0 g/dL (13.0-17.5) Hematocrit 34.3 % (39.0-53.0) 30.0 % (39.0-53.0) Mean Corpuscular Volume 96 fL (79-100) 93 fL (79-100) Mean Corpuscular Hemoglobin 31 pg (25-35) 31 pg (25-35) Mean Corpuscular Hemoglobin Concent 33 g/dL (31-37) 34 g/dL (31-37) Red Cell Distribution Width 16.8 % (11.5-14.5) 16.6 % (11.5-14.5) Platelet Count 42 x10^3/uL (140-400) 57 x10^3/uL (140-400) Neutrophils (%) (Auto) 74 % (31-73) 89 % (31-73) Lymphocytes (%) (Auto) 14 % (24-48) 4 % (24-48) Monocytes (%) (Auto) 11 % (0-9) 7 % (0-9) Eosinophils (%) (Auto) 1 % (0-3) 0 % (0-3) Basophils (%) (Auto) 0 % (0-3) 0 % (0-3) Neutrophils # (Auto) 4.8 x10^3uL (1.8-7.7) 12.8 x10^3uL (1.8-7.7) Lymphocytes # (Auto) 0.9 x10^3/uL (1.0-4.8) 0.6 x10^3/uL (1.0-4.8) Monocytes # (Auto) 0.7 x10^3/uL (0.0-1.1) 1.0 x10^3/uL (0.0-1.1) Eosinophils # (Auto) 0.1 x10^3/uL (0.0-0.7) 0.0 x10^3/uL (0.0-0.7) Basophils # (Auto) 0.0 x10^3/uL (0.0-0.2) 0.0 x10^3/uL (0.0-0.2) Sodium Level 151 mmol/L (136-145) 147 mmol/L (136-145) Potassium Level 3.3 mmol/L (3.5-5.1) 2.8 mmol/L (3.5-5.1) Chloride Level 115 mmol/L (98-107) 111 mmol/L (98-107) Carbon Dioxide Level 30 mmol/L (21-32) 30 mmol/L (21-32) Anion Gap 6 (6-14) 6 (6-14) Blood Urea Nitrogen 15 mg/dL (8-26) 17 mg/dL (8-26) Creatinine 1.0 mg/dL (0.7-1.3) 1.0 mg/dL (0.7-1.3) Estimated GFR (Cockcroft-Gault) 72.6 72.6 Glucose Level 106 mg/dL (70-99) 100 mg/dL (70-99) Calcium Level 8.2 mg/dL (8.5-10.1) 7.7 mg/dL (8.5-10.1) O2 Saturation 99 % (92-99) Arterial Blood pH 7.37 (7.35-7.45) Arterial Blood pCO2 at Patient Temp 45 mmHg (35-46) Arterial Blood pO2 at Patient Temp 163 mmHg (65-108) Arterial Blood HCO3 25 mmol/L (21-28) Arterial Blood Base Excess 0 mmol/L (-3-3) FiO2 40 Vancomycin Level Trough 6.5 mcg/mL (10.0-20.0) Vancomycin Last Dose Date 04/19/17 Vancomycin Last Dose Time 1200 Segmented Neutrophils % 26 % (35-66) Band Neutrophils % 63 % (0-9) Lymphocytes % 4 % (24-48) Monocytes % 2 % (0-10) Metamyelocytes % 3 % (0-0) Myelocytes % 2 % (0-0) Dohle Bodies Present Platelet Estimate Decreased (ADEQUATE) Large Platelets Present Anisocytosis Slight Laboratory Tests Test 04/20/17 11:40 04/21/17 03:55 Vancomycin Level Trough 6.5 mcg/mL (10.0-20.0) Vancomycin Last Dose Date 04/19/17 Vancomycin Last Dose Time 1200 White Blood Count 14.4 x10^3/uL (4.0-11.0) Red Blood Count 3.23 x10^6/uL (4.30-5.70) Hemoglobin 10.0 g/dL (13.0-17.5) Hematocrit 30.0 % (39.0-53.0) Mean Corpuscular Volume 93 fL (79-100) Mean Corpuscular Hemoglobin 31 pg (25-35) Mean Corpuscular Hemoglobin Concent 34 g/dL (31-37) Red Cell Distribution Width 16.6 % (11.5-14.5) Platelet Count 57 x10^3/uL (140-400) Neutrophils (%) (Auto) 89 % (31-73) Lymphocytes (%) (Auto) 4 % (24-48) Monocytes (%) (Auto) 7 % (0-9) Eosinophils (%) (Auto) 0 % (0-3) Basophils (%) (Auto) 0 % (0-3) Neutrophils # (Auto) 12.8 x10^3uL (1.8-7.7) Lymphocytes # (Auto) 0.6 x10^3/uL (1.0-4.8) Monocytes # (Auto) 1.0 x10^3/uL (0.0-1.1) Eosinophils # (Auto) 0.0 x10^3/uL (0.0-0.7) Basophils # (Auto) 0.0 x10^3/uL (0.0-0.2) Segmented Neutrophils % 26 % (35-66) Band Neutrophils % 63 % (0-9) Lymphocytes % 4 % (24-48) Monocytes % 2 % (0-10) Metamyelocytes % 3 % (0-0) Myelocytes % 2 % (0-0) Dohle Bodies Present Platelet Estimate Decreased (ADEQUATE) Large Platelets Present Anisocytosis Slight Sodium Level 147 mmol/L (136-145) Potassium Level 2.8 mmol/L (3.5-5.1) Chloride Level 111 mmol/L (98-107) Carbon Dioxide Level 30 mmol/L (21-32) Anion Gap 6 (6-14) Blood Urea Nitrogen 17 mg/dL (8-26) Creatinine 1.0 mg/dL (0.7-1.3) Estimated GFR (Cockcroft-Gault) 72.6 Glucose Level 100 mg/dL (70-99) Calcium Level 7.7 mg/dL (8.5-10.1) Medications Active Scripts Medications Dose Route/Sig Max Daily Dose Days Date Category Montelukast Sodium Tablet (Montelukast Sodium) 10 Mg Tablet 10 Mg PO HS 04/16/17 Reported Zyrtec (Cetirizine Hcl) 10 Mg Tablet 10 Tab PO DAILY 04/16/17 Reported Ibuprofen 400 Mg Tablet 400 Mg PO TID 04/16/17 Reported Keppra (Levetiracetam) 500 Mg Tablet 500 Tab PO BID 04/16/17 Reported Depakote (Divalproex Sodium) 500 Mg Tablet.dr 500 Tab PO BID 04/16/17 Reported Amlodipine Besylate 5 Mg Tablet 5 Mg PO DAILY 04/16/17 Reported Comments CXR REVIEWED Impression . 1. Acute respiratory failure, multifactorial in nature 2. acute/chronic encephalopathy 3. Possible sepsis 4. Hypotension, 5. History of seizure disorder. 6. Dementia. 7. Alzheimer's. 8. RADHA Plan . PT SWITCHED OVER TO PS HE DOES WELL ON 10 PS HAS ADEQUATE COUGH AND GAG REFLES I SUSPECT IF EXTUBATED HE WILL DO WELL FOR SOME TIME, IS NOT IMMINENT 1. will maintain off sedation 2. Continue ventilator support for now 3. Protonix for stress ulcer prophylaxis. 4. Lovenox for DVT prophylaxis. 5. His CT of the head reportedly showed small vessel disease, no acute abnormality, repeat CT after extubation 6. ID to follow 7. CXR reviewed 8. follow neuro input NELSON BELL MD Apr 21, 2017 09:45
[2017-04-21] MEDS: VANCOMYCIN PER PHARMACY MC PRN (10:20)
[2017-04-21 10:23] LABS: HCO3 ABG 29 mmol/L (21-28); PCO2 ABG 43 mmHg (35-46); PH ABG 7.44 (7.35-7.45); PO2 ABG 156 mmHg (65-108)
[2017-04-21 10:24] LABS: FIO2 ABG 40%; SAT O2 ABG 99 % (92-99)
[2017-04-21] MEDS: PANTOPRAZOLE IV PUSH 40 MG VIAL. IVP SCH (11:49)
[2017-04-21] MEDS: CHLORHEXIDINE 0.12% 15 ML MOUTHWASH. SWSP SCH ×2 (11:49→21:50)
[2017-04-21] MEDS: amLODIPine BESYLATE 5 MG TABLET PO SCH (11:49)
[2017-04-21] MEDS: CETIRIZINE HCL 10 MG TABLET. PO SCH (11:49)
[2017-04-21] MEDS: PIPERACILLIN/TAZOBACTAM 3.375 GM in IV NORMAL SALINE 50ML 50 ML IV SCH ×3 (11:50→18:59)
[2017-04-21] MEDS: SCOPOLAMINE 1.5MG PATCH. TD SCH (11:50)
[2017-04-21] MEDS: VALPROIC ACID (AS SODIUM SALT) 500 MG in IV NORMAL SALINE 50ML 50 ML IV SCH ×2 (13:49→21:50)
--- NOTE | 2017-04-21 15:24 | PDOC ---
PROGRESS NOTES Assessment Assessment Status epilepticus Seizure Metabolic encephalopathy. Respiratory failure. Leukocytosis HTN Bradycardia Hypothyroidism RECOMMENDATIONS/PLAN: Treat medical diseases. Continue IV Keppra and Depakote. Discontinue Vimpat 100 mg IV bid. EEG on 04/19/17: Diffuse encephalopathy. No seizure activity. SUBJECTIVE: Unresponsive. OBJECTIVE: Off sedation for 4 days. ALLERGIES: No known allergies to drugs. FAMILY HISTORY: Not obtainable. SOCIAL HISTORY: He is incarcerated, but completed his sentence. 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 MEDICATIONS: Refer to [facility] REVIEW OF SYSTEMS: See PMx. PHYSICAL EXAMINATION: General appearance in acute distress. HEENT: Normocephalic and nontraumatic. Eyes, nose, ears, and throat are unremarkable. Hearing decrease. Neck is supple. No lymphadenopathy. No Crepitus. Cardiovascular: S1, S2, regular rate and rhythm. Pulmonary: Clear to auscultation bilaterally. Abdomen: Bowel sounds are positive. Extremities: No rash, lesions, or edema. No restriction of range of motion NEUROLOGICAL EXAMINATION: Unresponsive. On vent. Off sedation for 4 days. Not oriented to time, place and person. PERRL. EOMI not elicited. CN: no focal findings. Muscle tone: fluctuated. Muscle strength: Minimal movements noted to stimuli. DTR: 1 Plantar reflex: Neutral response bilaterally Gait: not examined in bed. Sensory exam: Minimal response. Not able to access cerebellar signs. Objective Objective Vital Signs Date Time Temp Pulse Resp B/P (MAP) Pulse Ox O2 Delivery O2 Flow Rate FiO2 04/21/17 14:05 100 Ventilator 04/21/17 13:00 94 14 120/67 (84) 04/21/17 12:00 98.6 98.6 Intake and Output 04/21/17 07:00 Intake Total 5659 ml Output Total 1257 ml Balance 4402 ml Intake Oral 0 ml IV Total 1948 ml Tube Feeding 2621 ml Other 1090 ml Output Urine Total 1257 ml Vitals Signs Vitals VS - Last 72 Hours, by Label Date Time Temp Pulse Resp B/P (MAP) Pulse Ox O2 Delivery O2 Flow Rate FiO2 04/21/17 14:05 100 Ventilator 04/21/17 13:00 94 14 120/67 (84) 100 Ventilator 04/21/17 12:14 100 Ventilator 04/21/17 12:00 Mechanical Ventilator 04/21/17 12:00 98.6 100 14 146/74 (98) 100 Ventilator 98.6 04/21/17 11:49 102 140/73 04/21/17 11:00 98 15 140/73 (95) 100 Ventilator 04/21/17 10:52 100 Ventilator 04/21/17 10:00 104 20 148/72 (97) 100 Ventilator 04/21/17 09:00 108 20 150/73 (98) 100 Ventilator 04/21/17 08:25 100 Ventilator 04/21/17 08:00 99.1 110 19 148/70 (96) 100 Ventilator 99.1 04/21/17 08:00 Mechanical Ventilator 04/21/17 07:24 100 Ventilator 04/21/17 07:00 108 16 125/59 (81) 100 Ventilator 04/21/17 06:00 108 20 137/65 (89) 100 Ventilator 04/21/17 05:37 100 Ventilator 04/21/17 05:00 112 14 140/74 (96) 100 Ventilator 04/21/17 04:06 100 Ventilator 04/21/17 04:00 Mechanical Ventilator 04/21/17 04:00 98.9 104 14 126/74 (91) 100 Ventilator 98.9 04/21/17 03:00 104 15 126/67 (86) 100 Ventilator 04/21/17 02:09 100 Ventilator 04/21/17 02:00 106 13 124/64 (84) 100 Ventilator 04/21/17 01:00 112 20 139/74 (95) 100 Ventilator 04/21/17 00:18 107 173/91 04/21/17 00:18 100 Ventilator 04/21/17 00:00 Mechanical Ventilator 04/21/17 00:00 99.2 109 14 173/91 (118) 100 Ventilator 99.2 04/20/17 23:00 104 14 162/93 (116) 100 Ventilator 04/20/17 22:00 102 15 161/80 (107) 100 Ventilator 04/20/17 21:46 100 Ventilator 04/20/17 21:00 102 17 172/82 (112) 100 Ventilator 04/20/17 20:01 100 Ventilator 04/20/17 20:00 98.9 98 13 153/75 (101) 100 Ventilator 98.9 04/20/17 20:00 Mechanical Ventilator 04/20/17 19:00 99 15 152/89 (110) 100 Ventilator 04/20/17 18:08 85 165/105 04/20/17 18:05 85 15 165/105 (125) 100 Ventilator 04/20/17 17:12 97.5 88 10 173/97 (122) 100 Ventilator 97.5 04/20/17 16:55 100 Ventilator 04/20/17 16:08 87 12 160/86 (110) 100 Ventilator 04/20/17 16:07 Mechanical Ventilator 04/20/17 15:36 83 10 151/82 (105) 100 Ventilator 04/20/17 15:19 100 Ventilator 04/20/17 14:03 80 12 158/84 (108) 100 Ventilator 04/20/17 13:15 77 13 155/85 (108) 100 Ventilator 04/20/17 13:00 100 Ventilator 04/20/17 12:03 97.8 75 12 149/80 (103) 100 Ventilator 97.8 04/20/17 11:55 Mechanical Ventilator 04/20/17 11:20 100 Ventilator 04/20/17 11:12 72 12 140/75 (96) 100 Ventilator 04/20/17 10:13 73 13 137/70 (92) 100 Ventilator 04/20/17 09:06 100 Ventilator 04/20/17 09:02 67 12 121/70 (87) 100 Ventilator 04/20/17 08:49 73 134/74 04/20/17 08:28 Mechanical Ventilator 04/20/17 08:15 97.5 70 12 134/74 (94) 100 Ventilator 97.5 04/20/17 07:29 100 Ventilator 04/20/17 07:00 74 12 132/70 (90) 100 Ventilator Laboratory Laboratory Laboratory Tests Test 04/21/17 03:55 04/21/17 08:00 White Blood Count 14.4 x10^3/uL (4.0-11.0) Red Blood Count 3.23 x10^6/uL (4.30-5.70) Hemoglobin 10.0 g/dL (13.0-17.5) Hematocrit 30.0 % (39.0-53.0) Mean Corpuscular Volume 93 fL (79-100) Mean Corpuscular Hemoglobin 31 pg (25-35) Mean Corpuscular Hemoglobin Concent 34 g/dL (31-37) Red Cell Distribution Width 16.6 % (11.5-14.5) Platelet Count 57 x10^3/uL (140-400) Neutrophils (%) (Auto) 89 % (31-73) Lymphocytes (%) (Auto) 4 % (24-48) Monocytes (%) (Auto) 7 % (0-9) Eosinophils (%) (Auto) 0 % (0-3) Basophils (%) (Auto) 0 % (0-3) Neutrophils # (Auto) 12.8 x10^3uL (1.8-7.7) Lymphocytes # (Auto) 0.6 x10^3/uL (1.0-4.8) Monocytes # (Auto) 1.0 x10^3/uL (0.0-1.1) Eosinophils # (Auto) 0.0 x10^3/uL (0.0-0.7) Basophils # (Auto) 0.0 x10^3/uL (0.0-0.2) Segmented Neutrophils % 26 % (35-66) Band Neutrophils % 63 % (0-9) Lymphocytes % 4 % (24-48) Monocytes % 2 % (0-10) Metamyelocytes % 3 % (0-0) Myelocytes % 2 % (0-0) Dohle Bodies Present Platelet Estimate Decreased (ADEQUATE) Large Platelets Present Anisocytosis Slight Sodium Level 147 mmol/L (136-145) Potassium Level 2.8 mmol/L (3.5-5.1) Chloride Level 111 mmol/L (98-107) Carbon Dioxide Level 30 mmol/L (21-32) Anion Gap 6 (6-14) Blood Urea Nitrogen 17 mg/dL (8-26) Creatinine 1.0 mg/dL (0.7-1.3) Estimated GFR (Cockcroft-Gault) 72.6 Glucose Level 100 mg/dL (70-99) Calcium Level 7.7 mg/dL (8.5-10.1) O2 Saturation 99 % (92-99) Arterial Blood pH 7.44 (7.35-7.45) Arterial Blood pCO2 at Patient Temp 43 mmHg (35-46) Arterial Blood pO2 at Patient Temp 156 mmHg (65-108) Arterial Blood HCO3 29 mmol/L (21-28) Arterial Blood Base Excess 4 mmol/L (-3-3) FiO2 40% Microbiology 04/17/17 Blood Culture - Preliminary, Resulted NO GROWTH AFTER 4 DAYS 04/17/17 Gram Stain - Final, Complete 04/17/17 Urine Culture - Final, Complete 04/17/17 Urine Culture Result 1 (ABDULAZIZ) - Final, Complete Medication Medications Current Medications Piperacillin Sod/ Tazobactam Sod 3.375 gm/Sodium Chloride 50 ml @ 100 mls/hr Q6HRS IV Last administered on 04/21/17t 14:48; Start 04/21/17 at 08:00 Potassium Chloride 100 ml @ 100 mls/hr Q1H IV Last administered on 04/21/17t 13:06; Start 04/21/17 at 05:30; Stop 04/21/17 at 09:29; Status DC Vancomycin HCl 1 each 1X ONCE [facility] ; Start 04/22/17 at 00:30; Stop 04/22/17 at 00 :31 Comment Review of Relevant I have reviewed the following items campos (where applicable) has been applied. AI MAJANO MD Apr 21, 2017 15:24
[2017-04-21] MEDS: MONTELUKAST SODIUM 10 MG TABLET. PO SCH (21:50)
[2017-04-22] VITALS (24 sets, daily range): BP systolic 71–118; BP diastolic 42–67
[2017-04-22] MEDS: PIPERACILLIN/TAZOBACTAM 3.375 GM in IV NORMAL SALINE 50ML 50 ML IV SCH ×4 (00:55→17:44)
[2017-04-22 08:35] LABS: BODY TEMP ABG 94.5 DEG; FIO2 ABG 40; HCO3 ABG 28 mmol/L (21-28); PCO2 ABG 44 mmHg (35-46); PH ABG 7.42 (7.35-7.45); PO2 ABG 118 mmHg (65-108); SAT O2 ABG 98 % (92-99)
--- NOTE | 2017-04-22 08:44 | PDOC ---
PULMONARY PROGRESS NOTES Subjective TODAY CLINICAL STATUS SOMEWHAT DIFFERENT THAN YESTERDAY DOES ASSIST VENT Vitals Vital Signs Date Time Temp Pulse Resp B/P (MAP) Pulse Ox O2 Delivery O2 Flow Rate FiO2 04/22/17 07:26 100 Ventilator 04/22/17 06:00 63 12 92/52 (65) 04/22/17 04:00 97.6 97.6 HEENT: Other (nc at perrl, nose clear, orally intubated, neck, no lap, no thyromegaly) Lungs: Clear, Crackles Cardiovascular: S1, S2 Abdomen: Soft, Non-tender, Other Extremities: No Edema Skin: Warm Labs Laboratory Tests Test 04/20/17 11:40 04/21/17 03:55 04/21/17 08:00 04/21/17 13:00 Vancomycin Level Trough 6.5 mcg/mL (10.0-20.0) Vancomycin Last Dose Date 04/19/17 Vancomycin Last Dose Time 1200 White Blood Count 14.4 x10^3/uL (4.0-11.0) Red Blood Count 3.23 x10^6/uL (4.30-5.70) Hemoglobin 10.0 g/dL (13.0-17.5) Hematocrit 30.0 % (39.0-53.0) Mean Corpuscular Volume 93 fL (79-100) Mean Corpuscular Hemoglobin 31 pg (25-35) Mean Corpuscular Hemoglobin Concent 34 g/dL (31-37) Red Cell Distribution Width 16.6 % (11.5-14.5) Platelet Count 57 x10^3/uL (140-400) Neutrophils (%) (Auto) 89 % (31-73) Lymphocytes (%) (Auto) 4 % (24-48) Monocytes (%) (Auto) 7 % (0-9) Eosinophils (%) (Auto) 0 % (0-3) Basophils (%) (Auto) 0 % (0-3) Neutrophils # (Auto) 12.8 x10^3uL (1.8-7.7) Lymphocytes # (Auto) 0.6 x10^3/uL (1.0-4.8) Monocytes # (Auto) 1.0 x10^3/uL (0.0-1.1) Eosinophils # (Auto) 0.0 x10^3/uL (0.0-0.7) Basophils # (Auto) 0.0 x10^3/uL (0.0-0.2) Segmented Neutrophils % 26 % (35-66) Band Neutrophils % 63 % (0-9) Lymphocytes % 4 % (24-48) Monocytes % 2 % (0-10) Metamyelocytes % 3 % (0-0) Myelocytes % 2 % (0-0) Dohle Bodies Present Platelet Estimate Decreased (ADEQUATE) Large Platelets Present Anisocytosis Slight Sodium Level 147 mmol/L (136-145) Potassium Level 2.8 mmol/L (3.5-5.1) Chloride Level 111 mmol/L (98-107) Carbon Dioxide Level 30 mmol/L (21-32) Anion Gap 6 (6-14) Blood Urea Nitrogen 17 mg/dL (8-26) Creatinine 1.0 mg/dL (0.7-1.3) Estimated GFR (Cockcroft-Gault) 72.6 Glucose Level 100 mg/dL (70-99) Calcium Level 7.7 mg/dL (8.5-10.1) O2 Saturation 99 % (92-99) Arterial Blood pH 7.44 (7.35-7.45) Arterial Blood pCO2 at Patient Temp 43 mmHg (35-46) Arterial Blood pO2 at Patient Temp 156 mmHg (65-108) Arterial Blood HCO3 29 mmol/L (21-28) Arterial Blood Base Excess 4 mmol/L (-3-3) FiO2 40% Clostridium difficile Toxin (PCR) Positive (Negative) Test 04/22/17 00:35 04/22/17 08:00 Vancomycin Level Trough 17.5 mcg/mL (10.0-20.0) Vancomycin Last Dose Date 04/21/17 Vancomycin Last Dose Time 1300 O2 Saturation 98 % (92-99) Arterial Blood pH 7.42 (7.35-7.45) Arterial Blood pCO2 at Patient Temp 44 mmHg (35-46) Arterial Blood pO2 at Patient Temp 118 mmHg (65-108) Arterial Blood HCO3 28 mmol/L (21-28) Arterial Blood Base Excess 3 mmol/L (-3-3) FiO2 40 Laboratory Tests Test 04/21/17 13:00 04/22/17 00:35 04/22/17 08:00 Clostridium difficile Toxin (PCR) Positive (Negative) Vancomycin Level Trough 17.5 mcg/mL (10.0-20.0) Vancomycin Last Dose Date 04/21/17 Vancomycin Last Dose Time 1300 O2 Saturation 98 % (92-99) Arterial Blood pH 7.42 (7.35-7.45) Arterial Blood pCO2 at Patient Temp 44 mmHg (35-46) Arterial Blood pO2 at Patient Temp 118 mmHg (65-108) Arterial Blood HCO3 28 mmol/L (21-28) Arterial Blood Base Excess 3 mmol/L (-3-3) FiO2 40 Medications Active Scripts Medications Dose Route/Sig Max Daily Dose Days Date Category Montelukast Sodium Tablet (Montelukast Sodium) 10 Mg Tablet 10 Mg PO HS 04/16/17 Reported Zyrtec (Cetirizine Hcl) 10 Mg Tablet 10 Tab PO DAILY 04/16/17 Reported Ibuprofen 400 Mg Tablet 400 Mg PO TID 04/16/17 Reported Keppra (Levetiracetam) 500 Mg Tablet 500 Tab PO BID 04/16/17 Reported Depakote (Divalproex Sodium) 500 Mg Tablet. 500 Tab PO BID 04/16/17 Reported Amlodipine Besylate 5 Mg Tablet 5 Mg PO DAILY 04/16/17 Reported Comments CXR REVIEWED Impression . 1. Acute respiratory failure, multifactorial in nature 2. acute/chronic encephalopathy 3. Possible sepsis 4. Hypotension, 5. History of seizure disorder. 6. Dementia. 7. Alzheimer's. 8. RADHA Plan . NOT CLINICALLY READY FOR EXTUBATION SPOKE WITH DR CARRERO WHEN PT IS CLINICALLY READY FOR EXTUBATION, HE WILL BE TRANPORTTED BACK TO [facility] FOR PALLIATIVE CARE, NO REINTUBATION ONCE EXTUBATED HAS ADEQUATE COUGH AND GAG REFLEX MAINTAIN OFF SEDATION ANTIBX PER NELSON WALLACE MD Apr 22, 2017 08:44
[2017-04-22] MEDS: amLODIPine BESYLATE 5 MG TABLET PO SCH (09:00)
[2017-04-22] MEDS: IV 1/2 NORMAL SALINE 1,000 ML IV SCH (09:45)
--- NOTE | 2017-04-22 09:46 | PDOC ---
PROGRESS NOTES Chief Complaint Chief Complaint A/P 1. PERSISTENT encephalopathy, multifactorial, sepsis, etc 2. Acute hypoxic respiratory failure: on mechanical ventilation 3. GPC bacteremia - contaminant? 4. RADHA: VMN 5. History of dementia, unknown type. 6. Bradycardia, sinus.: resolved. 7. Hypernatremia: on a vented pt 8. Thrombocytopenia in the background of sepsis 9. INcarcerated-inmate 10. HYpernatremia 11. Hypokalemia sec to diarrhea 12. AOCD 13. C diff positive History of Present Illness History of Present Illness Seen on ICU Vent but no sedation and not responsive OTher notes reviewed MAR reviewed K low 2.8. CRea 1.0 HGb 10, WBC 14, no fevers PLatelets 57 no bleeding C diff is pOSITIVE - NEW 04/21 PLAn: Recheck K - replace ICU protocol PAlliative on case Fam meet tue 11 AM set up SUpprotive care HYpotensive - IVF start COnt vanc - c diff positive Vitals Vitals Vital Signs Date Time Temp Pulse Resp B/P (MAP) Pulse Ox O2 Delivery O2 Flow Rate FiO2 04/22/17 07:26 100 Ventilator 04/22/17 06:00 63 12 92/52 (65) 04/22/17 04:00 97.6 97.6 Physical Exam General: Other (OFF SEDATION, INTUBATED, non verbal) Heart: Normal S1, Normal S2 Lungs: Clear Abdomen: Normal bowel sounds Extremities: No clubbing Skin: No rashes Labs LABS Laboratory Tests Test 04/21/17 13:00 04/22/17 00:35 04/22/17 08:00 Clostridium difficile Toxin (PCR) Positive (Negative) Vancomycin Level Trough 17.5 mcg/mL (10.0-20.0) Vancomycin Last Dose Date 04/21/17 Vancomycin Last Dose Time 1300 O2 Saturation 98 % (92-99) Arterial Blood pH 7.42 (7.35-7.45) Arterial Blood pCO2 at Patient Temp 44 mmHg (35-46) Arterial Blood pO2 at Patient Temp 118 mmHg (65-108) Arterial Blood HCO3 28 mmol/L (21-28) Arterial Blood Base Excess 3 mmol/L (-3-3) FiO2 40 Comment Review of Relevant I have reviewed the following items campos (where applicable) has been applied. Labs Laboratory Tests Test 04/20/17 11:40 04/21/17 03:55 04/21/17 08:00 04/21/17 13:00 Vancomycin Level Trough 6.5 mcg/mL (10.0-20.0) Vancomycin Last Dose Date 04/19/17 Vancomycin Last Dose Time 1200 White Blood Count 14.4 x10^3/uL (4.0-11.0) Red Blood Count 3.23 x10^6/uL (4.30-5.70) Hemoglobin 10.0 g/dL (13.0-17.5) Hematocrit 30.0 % (39.0-53.0) Mean Corpuscular Volume 93 fL (79-100) Mean Corpuscular Hemoglobin 31 pg (25-35) Mean Corpuscular Hemoglobin Concent 34 g/dL (31-37) Red Cell Distribution Width 16.6 % (11.5-14.5) Platelet Count 57 x10^3/uL (140-400) Neutrophils (%) (Auto) 89 % (31-73) Lymphocytes (%) (Auto) 4 % (24-48) Monocytes (%) (Auto) 7 % (0-9) Eosinophils (%) (Auto) 0 % (0-3) Basophils (%) (Auto) 0 % (0-3) Neutrophils # (Auto) 12.8 x10^3uL (1.8-7.7) Lymphocytes # (Auto) 0.6 x10^3/uL (1.0-4.8) Monocytes # (Auto) 1.0 x10^3/uL (0.0-1.1) Eosinophils # (Auto) 0.0 x10^3/uL (0.0-0.7) Basophils # (Auto) 0.0 x10^3/uL (0.0-0.2) Segmented Neutrophils % 26 % (35-66) Band Neutrophils % 63 % (0-9) Lymphocytes % 4 % (24-48) Monocytes % 2 % (0-10) Metamyelocytes % 3 % (0-0) Myelocytes % 2 % (0-0) Dohle Bodies Present Platelet Estimate Decreased (ADEQUATE) Large Platelets Present Anisocytosis Slight Sodium Level 147 mmol/L (136-145) Potassium Level 2.8 mmol/L (3.5-5.1) Chloride Level 111 mmol/L (98-107) Carbon Dioxide Level 30 mmol/L (21-32) Anion Gap 6 (6-14) Blood Urea Nitrogen 17 mg/dL (8-26) Creatinine 1.0 mg/dL (0.7-1.3) Estimated GFR (Cockcroft-Gault) 72.6 Glucose Level 100 mg/dL (70-99) Calcium Level 7.7 mg/dL (8.5-10.1) O2 Saturation 99 % (92-99) Arterial Blood pH 7.44 (7.35-7.45) Arterial Blood pCO2 at Patient Temp 43 mmHg (35-46) Arterial Blood pO2 at Patient Temp 156 mmHg (65-108) Arterial Blood HCO3 29 mmol/L (21-28) Arterial Blood Base Excess 4 mmol/L (-3-3) FiO2 40% Clostridium difficile Toxin (PCR) Positive (Negative) Test 04/22/17 00:35 04/22/17 08:00 Vancomycin Level Trough 17.5 mcg/mL (10.0-20.0) Vancomycin Last Dose Date 04/21/17 Vancomycin Last Dose Time 1300 O2 Saturation 98 % (92-99) Arterial Blood pH 7.42 (7.35-7.45) Arterial Blood pCO2 at Patient Temp 44 mmHg (35-46) Arterial Blood pO2 at Patient Temp 118 mmHg (65-108) Arterial Blood HCO3 28 mmol/L (21-28) Arterial Blood Base Excess 3 mmol/L (-3-3) FiO2 40 Laboratory Tests Test 04/21/17 13:00 04/22/17 00:35 04/22/17 08:00 Clostridium difficile Toxin (PCR) Positive (Negative) Vancomycin Level Trough 17.5 mcg/mL (10.0-20.0) Vancomycin Last Dose Date 04/21/17 Vancomycin Last Dose Time 1300 O2 Saturation 98 % (92-99) Arterial Blood pH 7.42 (7.35-7.45) Arterial Blood pCO2 at Patient Temp 44 mmHg (35-46) Arterial Blood pO2 at Patient Temp 118 mmHg (65-108) Arterial Blood HCO3 28 mmol/L (21-28) Arterial Blood Base Excess 3 mmol/L (-3-3) FiO2 40 Microbiology 04/17/17 Blood Culture - Preliminary, Resulted NO GROWTH AFTER 4 DAYS 04/17/17 Gram Stain - Final, Complete 04/17/17 Urine Culture - Final, Complete 04/17/17 Urine Culture Result 1 (ABDULAZIZ) - Final, Complete Medications Current Medications Lorazepam (Ativan) 1 mg PRN Q1HR PRN IV ANXIETY / AGITATION; Start 04/16/17 at 09:30 Acetaminophen (Tylenol) 325 mg PRN Q6HRS PRN PO MILD PAIN / TEMP; Start at 11:00 Acetaminophen/ Hydrocodone Bitart (Lortab 5/325) 1 tab PRN Q6HRS PRN PO MODERATE TO SEVERE PAIN; Start 04/16/17 at 11:00 Hydralazine HCl (Apresoline) 10 mg PRN Q4HRS PRN IVP ELEVATED BP, SEE COMMENTS Last administered on 04/21/17 00:18; Start 04/16/17 at 11:00 Ondansetron HCl (Zofran) 4 mg PRN Q8HRS PRN IV NAUSEA/VOMITING; Start 04/16/17 at 11:00 Albuterol Sulfate (Ventolin Neb Soln) 2.5 mg PRN Q4HRS PRN NEB SHORTNESS OF BREATH Last administered on 04/18/17 16:56; Start 04/16/17 at 11:00 Amlodipine Besylate (Norvasc) 5 mg DAILY PO Last administered on 04/21/17 11: 49; Start 04/16/17 at 12:00 Cetirizine HCl (ZyrTEC) 10 mg DAILY PO Last administered on 04/21/17 11:49; Start 04/16/17 at 12:00 Divalproex Sodium (Depakote) 500 mg BID PO ; Start 04/16/17 at 12:00; Status Cancel Levetiracetam (Keppra) 500 mg BID PO ; Start 04/16/17 at 12:00; Stop 04/16/17 at 12:13; Status DC Montelukast Sodium (Singulair) 10 mg HS PO Last administered on 04/21/17 21:50 ; Start 04/16/17 at 21:00 Levetiracetam (Keppra) 500 mg 1X ONCE PO ; Start 04/17/17 at 12:00; Stop at 12:00; Status DC Levetiracetam 500 mg/Sodium Chloride 100 ml @ 400 mls/hr Q12HR IV Last administered on 04/16/17 12:52; Start 04/16/17 at 12:00; Stop 04/16/17 at 16:28 ; Status DC Valproic Acid 500 mg/Sodium Chloride 55 ml @ 55 mls/hr Q12HR IV Last administered on 04/21/17 21:50; Start 04/16/17 at 12:00 Levetiracetam 1000 mg/Sodium Chloride 110 ml @ 400 mls/hr Q12H IV Last administered on 04/17/17 09:35; Start 04/16/17 at 21:30; Stop 04/17/17 at 10:35 ; Status DC Levetiracetam 500 mg/Sodium Chloride 100 ml @ 400 mls/hr 1X ONCE IV Last administered on 04/16/17 16:54; Start 04/16/17 at 17:00; Stop 04/16/17 at 17:14 ; Status DC Lacosamide 100 mg/ Sodium Chloride 60 ml @ 120 mls/hr BID IV Last administered on 04/20/17 08:50; Start 04/16/17 at 21:00; Stop 04/20/17 at 14:44 ; Status DC Lacosamide 100 mg/ Sodium Chloride 60 ml @ 120 mls/hr 1X ONCE IV Last administered on 04/16/17 16:55; Start 04/16/17 at 17:30; Stop 04/16/17 at 17:59 ; Status DC Pantoprazole Sodium (Protonix) 40 mg DAILYAC PO Last administered on 04/17/17 09:32; Start 04/16/17 at 17:00; Stop 04/19/17 at 10:48; Status DC Sodium Chloride 1,000 ml @ 1,000 mls/hr 1X ONCE IV Last administered on 00:48; Start 04/17/17 at 01:00; Stop 04/17/17 at 01:59; Status DC Norepinephrine Bitartrate 250 ml @ 0 mls/hr CONT PRN IV SEE I/O RECORD Last administered on 04/17/17 01:25; Start 04/17/17 at 00:45 Midazolam HCl 100 ml @ 0 mls/hr CONT PRN IV SEE I/O RECORD; Start 04/17/17 at 01:00 Ceftriaxone Sodium 1 gm/ Sodium Chloride 50 ml @ 100 mls/hr Q24H IV Last administered on 04/20/17 08:50; Start 04/17/17 at 09:00; Stop 04/21/17 at 07:51 ; Status DC Levetiracetam 750 mg/Sodium Chloride 107.5 ml @ 440 mls/hr Q12HR IV Last administered on 04/21/17 21:49; Start 04/17/17 at 21:00 Sodium Chloride 1,000 ml @ 75 mls/hr [id number] IV ; Start 04/17/17 at 13:00; Stop 04/17/17 at 13:02; Status DC Dextrose/Sodium Chloride 1,000 ml @ 75 mls/hr [id number] IV Last administered on 04/18/17 20:42; Start 04/17/17 at 13:15; Stop 04/19/17 at 08:03; Status DC Vancomycin HCl (Vanco Per Pharmacy) 1 each PRN DAILY PRN MC SEE COMMENTS Last administered on 04/21/17 10:20; Start 04/18/17 at 10:15; Stop 04/22/17 at 00:31 ; Status DC Vancomycin HCl 2 gm/Sodium Chloride 500 ml @ 250 mls/hr 1X ONCE IV Last administered on 04/18/17 12:13; Start 04/18/17 at 10:30; Stop 04/18/17 at 12:29 ; Status DC Vancomycin HCl 1.25 gm/Sodium Chloride 250 ml @ 167 mls/hr Q24H IV Last administered on 04/19/17 11:22; Start 04/19/17 at 12:00; Stop 04/20/17 at 12:31 ; Status DC Vancomycin HCl 1 each 1X ONCE MC ; Start 04/20/17 at 11:30; Stop 04/20/17 at 11 :31; Status DC Chlorhexidine Gluconate (Peridex) 15 ml BID SWSP Last administered on 21:50; Start 04/18/17 at 21:00 Haloperidol Lactate (Haldol) 5 mg PRN Q6HRS PRN IVP AGITATION Last administered on 04/18/17 22:18; Start 04/18/17 at 16:30 Scopolamine (Transderm-Scop) 1 patch Q3DAYS TD Last administered on 04/21/17 11:50; Start 04/18/17 at 20:00 Pantoprazole Sodium (Protonix Vial) 40 mg DAILYAC IVP Last administered on 04/21 11:49; Start 04/19/17 at 11:00 Enoxaparin Sodium (Lovenox 40mg Syringe) 40 mg Q24H SQ Last administered on 12:00; Start 04/19/17 at 12:00; Stop 04/20/17 at 12:48; Status DC Dextrose/Sodium Chloride 1,000 ml @ 45 mls/hr [id number] IV Last administered on 04/20/17 11:35; Start 04/19/17 at 12:00; Stop 04/20/17 at 11:59; Status DC Vancomycin HCl 1.25 gm/Sodium Chloride 250 ml @ 167 mls/hr Q12H IV Last administered on 04/21/17 14:51; Start 04/20/17 at 13:00; Stop 04/22/17 at 00:24 ; Status DC Vancomycin HCl 1 each 1X ONCE MC ; Start 04/22/17 at 00:30; Stop 04/22/17 at 00 :31; Status Cancel Potassium Chloride 100 ml @ 100 mls/hr Q1H IV Last administered on 04/21/17 13:06; Start 04/21/17 at 05:30; Stop 04/21/17 at 09:29; Status DC Piperacillin Sod/ Tazobactam Sod 3.375 gm/Sodium Chloride 50 ml @ 100 mls/hr Q6HRS IV Last administered on 04/22/17 05:51; Start 04/21/17 at 08:00 Vancomycin HCl 125 mg [id number] PO ; Start 04/22/17 at 09:00 Potassium Chloride 100 ml @ 100 mls/hr Q1H IV ; Start 04/22/17 at 09:00; Stop 04/22/17 at 12:59 Active Scripts Active Reported Montelukast Sodium Tablet (Montelukast Sodium) 10 Mg Tablet 10 Mg PO HS Zyrtec (Cetirizine Hcl) 10 Mg Tablet 10 Tab PO DAILY Ibuprofen 400 Mg Tablet 400 Mg PO TID Keppra (Levetiracetam) 500 Mg Tablet 500 Tab PO BID Depakote (Divalproex Sodium) 500 Mg Tablet.dr 500 Tab PO BID Amlodipine Besylate 5 Mg Tablet 5 Mg PO DAILY Vitals/I & O Vital Sign - Last 24 Hours 04/21/17 04/21/17 04/21/17 04/21/17 10:00 10:52 11:00 11:49 Pulse 104 98 102 Resp 20 15 B/P (MAP) 148/72 (97) 140/73 (95) 140/73 Pulse Ox 100 100 100 O2 Delivery Ventilator Ventilator Ventilator 04/21/17 04/21/17 04/21/17 04/21/17 12:00 12:00 12:14 13:00 Temp 98.6 98.6 Pulse 100 94 Resp 14 14 B/P (MAP) 146/74 (98) 120/67 (84) Pulse Ox 100 100 100 O2 Delivery Ventilator Mechanical Ventilator Ventilator Ventilator 04/21/17 04/21/17 04/21/17 04/21/17 14:00 14:05 15:00 16:00 Temp 98.6 98.6 Pulse 94 98 100 Resp 15 13 14 B/P (MAP) 111/77 (88) 119/70 (86) 133/68 (89) Pulse Ox 100 100 100 100 O2 Delivery Ventilator Ventilator Ventilator Ventilator 04/21/17 04/21/17 04/21/17 04/21/17 16:00 16:43 17:00 18:00 Pulse 98 80 Resp 26 14 B/P (MAP) 112/54 (73) 81/49 (60) Pulse Ox 100 100 100 O2 Delivery Mechanical Ventilator Ventilator Ventilator Ventilator 04/21/17 04/21/17 04/21/17 04/21/17 19:00 19:49 20:00 20:00 Temp 97.5 97.5 Pulse 82 82 Resp 12 11 B/P (MAP) 105/56 (72) 108/57 (74) Pulse Ox 100 100 100 O2 Delivery Ventilator Ventilator Ventilator Mechanical Ventilator 04/21/17 04/21/17 04/21/17 04/21/17 21:00 22:00 23:00 23:36 Pulse 70 69 69 Resp 12 10 9 B/P (MAP) 111/57 (75) 101/52 (68) 96/44 (61) Pulse Ox 100 100 100 100 O2 Delivery Ventilator Ventilator Ventilator Ventilator 04/22/17 04/22/17 04/22/17 04/22/17 00:00 00:00 01:00 01:45 Temp 97.6 97.6 Pulse 76 70 Resp 15 17 B/P (MAP) 103/53 (70) 94/52 (66) Pulse Ox 100 100 100 O2 Delivery Mechanical Ventilator Ventilator Ventilator Ventilator 04/22/17 04/22/17 04/22/17 04/22/17 02:00 03:00 03:42 04:00 Pulse 70 70 Resp 13 12 B/P (MAP) 102/57 (72) 98/55 (69) Pulse Ox 100 100 100 O2 Delivery Ventilator Ventilator Ventilator Mechanical Ventilator 04/22/17 04/22/17 04/22/17 04/22/17 04:00 05:00 05:41 06:00 Temp 97.6 97.6 Pulse 66 62 63 Resp 15 12 12 B/P (MAP) 102/58 (73) 100/58 (72) 92/52 (65) Pulse Ox 100 97 100 100 O2 Delivery Ventilator Ventilator Ventilator Ventilator 04/22/17 07:26 Pulse Ox 100 O2 Delivery Ventilator Intake and Output 04/21/17 04/21/17 04/22/17 14:59 22:59 06:59 Intake Total 410 ml 1604 ml 1778 ml Output Total 250 ml 405 ml 342 ml Balance 160 ml 1199 ml 1436 ml SELMA DONOVAN MD Apr 22, 2017 09:46
[2017-04-22] MEDS: VANCOMYCIN 125 MG/2.5 ML ORAL SOLUTION. PO SCH ×4 (09:47→20:44)
[2017-04-22] MEDS: CETIRIZINE HCL 10 MG TABLET. PO SCH (09:47)
[2017-04-22] MEDS: VALPROIC ACID (AS SODIUM SALT) 500 MG in IV NORMAL SALINE 50ML 50 ML IV SCH ×2 (09:47→20:45)
[2017-04-22] MEDS: PANTOPRAZOLE IV PUSH 40 MG VIAL. IVP SCH (09:47)
[2017-04-22] MEDS: CHLORHEXIDINE 0.12% 15 ML MOUTHWASH. SWSP SCH ×2 (09:48→20:46)
[2017-04-22 11:26] LABS: CALCIUM 8.1 mg/dL (8.5-10.1); CREATININE 1.1 mg/dL (0.7-1.3); GFR 65.1
[2017-04-22 11:30] LABS: POTASSIUM 2.8 mmol/L (3.5-5.1)
[2017-04-22 11:31] LABS: BASO % 0 % (0-3); EOS % 2 % (0-3); HEMOGLOBIN 8.5 g/dL (13.0-17.5); LYMPH # 1.1 x10^3/uL (1.0-4.8); LYMPH % 6 % (24-48); MEAN CORPUSCULAR HEMOGLOBIN 31 pg (25-35); MEAN CORPUSCULAR HGB CONC 33 g/dL (31-37); MEAN CORPUSCULAR VOLUME 95 fL (79-100); MONO % 6 % (0-9); NEUT % 87 % (31-73); PLATELET COUNT 55 x10^3/uL (140-400); RED BLOOD COUNT 2.74 x10^6/uL (4.30-5.70); RED CELL DISTRIBUTION WIDTH 16.6 % (11.5-14.5); WHITE BLOOD COUNT 17.4 x10^3/uL (4.0-11.0)
[2017-04-22] MEDS: POTASSIUM CHLORIDE 10MEQ 100 ML IV SCH ×4 (11:47→16:49)
--- NOTE | 2017-04-22 12:01 | PDOC2 ---
PALLIATIVE CARE Palliative Care Note Palliative Care Patient remains on Vent./intubated on pressure support. Tolerated well per staff. Per [place] RN/CM patient has court appointed guardian. Nena Garcia [phone]; [phone]; Requested copy of guardianship document from [facility] staff here with patient. Unable to locate. Called Nena and requested her copy of document to be faxed. Received Guardianship Document and placed on medical record. Nena understands that she can not make end of life decisions but is willing to be a part of the conversation concerning the plan of care. Spoke with Ms. Mckeon--Re-entry Coordinator. States the plan is for patient is to be released to [facility] today per Jay Javed Head of Re-entry system. . Patient is then to be evaluated by Michelle Ruiz from the [facility] system. Above reviewed with Shelley Pickens CNO, Kaelyn Ibarra Director of ICU. and Sirisha Stephens Director of CM Per Herson CASTILLO who has spoke with Adela from [facility] they can accept patient back at facility with Hospice. Palliative Care was to meet with Jessica Charles (/decision maker per Carmita martinez at [facility]) Jessica did not show for meeting but has talked with staff and has been instructed by [facility] to communicate with them Plan: Will await Dr. Mejía evaluation. Will need to discuss Code Status and address outside the hospital DNR/DNI if patient is to return to [facility] 1330. Spoke with Jessica () Reviewed medical condition. Understands he is very ill. Informed : Eyes opening and movement is not due to commands but to reaction to stimulation. Jessica states she has been to Frank for 13 years. Patient was incarcerated in 2003. Patient has son and daughter that has had not contact with since Frank and Jessica have been . Patient also has sister --no contact. Maxine is important to patient. Enjoyed reading the Bible and praying. Jessica stated that it has been about 4 years since they have had a meaningful conversation. Jessica saw him in court about 31/2 years ago but he did not acknowledge her. Doctor at [facility] had told her that Frank has Alzheimer Disease. Jessica describe him as one who was always wanting to be busy. If he saw himself in this medical condition and was not expected to recover Jessica stated he would say "let him go peacefully" 1600 Spoke with Jessica. Updated on plan. Discussed resuscitation. Jessica requested patient not be resuscitated or be re-intubated if tube is removed. Understands that without the attempt in resuscitation patient likely would . "He has suffered enough, let him go peacefully" Outside the Hospital DNR/DNI signed by Jessica. Evangelist [facility] will page for order RAMÓN PUGA Apr 22, 2017 12:01
--- NOTE | 2017-04-22 14:02 | PDOC ---
PROGRESS NOTES Assessment Assessment Status epilepticus Seizure Metabolic encephalopathy. Respiratory failure. Leukocytosis HTN Bradycardia Hypothyroidism RECOMMENDATIONS/PLAN: Repeat HCT w/o contrast. Treat medical diseases. Continue IV Keppra and Depakote, but decrease Keppra dose form 750 mg bid to 500 mg bid. Discontinued Vimpat 100 mg IV bid on 04/20/17. EEG on 04/19/17: Diffuse encephalopathy. No seizure activity. SUBJECTIVE: Unresponsive. OBJECTIVE: Off sedation for 5 days. ALLERGIES: No known allergies to drugs. FAMILY HISTORY: Not obtainable. SOCIAL HISTORY: He is incarcerated, but completed his sentence. He is a chowdhury of the [facility] and due to his mental status, he was not able to be released from the facility. MEDICATIONS: Refer to [facility] REVIEW OF SYSTEMS: See PMx. PHYSICAL EXAMINATION: General appearance in acute distress. HEENT: Normocephalic and nontraumatic. Eyes, nose, ears, and throat are unremarkable. Hearing decrease. Neck is supple. No lymphadenopathy. No Crepitus. Cardiovascular: S1, S2, regular rate and rhythm. Pulmonary: Clear to auscultation bilaterally. Abdomen: Bowel sounds are positive. Extremities: No rash, lesions, or edema. No restriction of range of motion NEUROLOGICAL EXAMINATION: Unresponsive. On vent. Off sedation for 5 days. Not oriented to time, place and person. PERRL. EOMI not elicited. CN: no focal findings. Muscle tone: fluctuated. Muscle strength: Minimal movements noted to stimuli. DTR: 1 Plantar reflex: Neutral response bilaterally Gait: not examined in bed. Sensory exam: Minimal response. Not able to access cerebellar signs. Objective Objective Vital Signs Date Time Temp Pulse Resp B/P (MAP) Pulse Ox O2 Delivery O2 Flow Rate FiO2 04/22/17 11:12 100 Ventilator 04/22/17 10:00 94.5 64 12 99/66 (77) 94.5 Intake and Output 04/22/17 07:00 Intake Total 3792 ml Output Total 997 ml Balance 2795 ml IV Total 389 ml Tube Feeding 2092 ml Other 1311 ml Output Urine Total 997 ml # Bowel Movements 7 Vitals Signs Vitals VS - Last 72 Hours, by Label Date Time Temp Pulse Resp B/P (MAP) Pulse Ox O2 Delivery O2 Flow Rate FiO2 04/22/17 11:12 100 Ventilator 04/22/17 10:00 94.5 64 12 99/66 (77) 100 Ventilator 94.5 04/22/17 09:15 98 Ventilator 04/22/17 09:00 64 12 105/53 (70) 97 Ventilator 04/22/17 09:00 60 95/57 04/22/17 08:00 62 12 96/54 (68) 97 Ventilator 04/22/17 07:26 100 Ventilator 04/22/17 07:00 94.5 62 12 87/56 (66) 100 Ventilator 94.5 04/22/17 06:00 63 12 92/52 (65) 100 Ventilator 04/22/17 05:41 100 Ventilator 04/22/17 05:00 62 12 100/58 (72) 97 Ventilator 04/22/17 04:00 97.6 66 15 102/58 (73) 100 Ventilator 97.6 04/22/17 04:00 Mechanical Ventilator 04/22/17 03:42 100 Ventilator 04/22/17 03:00 70 12 98/55 (69) 100 Ventilator 04/22/17 02:00 70 13 102/57 (72) 100 Ventilator 04/22/17 01:45 100 Ventilator 04/22/17 01:00 70 17 94/52 (66) 100 Ventilator 04/22/17 00:00 97.6 76 15 103/53 (70) 100 Ventilator 97.6 04/22/17 00:00 Mechanical Ventilator 04/21/17 23:36 100 Ventilator 04/21/17 23:00 69 9 96/44 (61) 100 Ventilator 04/21/17 22:00 69 10 101/52 (68) 100 Ventilator 04/21/17 21:00 70 12 111/57 (75) 100 Ventilator 04/21/17 20:00 Mechanical Ventilator 04/21/17 20:00 97.5 82 11 108/57 (74) 100 Ventilator 97.5 04/21/17 19:49 100 Ventilator 04/21/17 19:00 82 12 105/56 (72) 100 Ventilator 04/21/17 18:00 80 14 81/49 (60) 100 Ventilator 04/21/17 17:00 98 26 112/54 (73) 100 Ventilator 04/21/17 16:43 100 Ventilator 04/21/17 16:00 Mechanical Ventilator 04/21/17 16:00 98.6 100 14 133/68 (89) 100 Ventilator 98.6 04/21/17 15:00 98 13 119/70 (86) 100 Ventilator 04/21/17 14:05 100 Ventilator 04/21/17 14:00 94 15 111/77 (88) 100 Ventilator 04/21/17 13:00 94 14 120/67 (84) 100 Ventilator 04/21/17 12:14 100 Ventilator 04/21/17 12:00 Mechanical Ventilator 04/21/17 12:00 98.6 100 14 146/74 (98) 100 Ventilator 98.6 04/21/17 11:49 102 140/73 04/21/17 11:00 98 15 140/73 (95) 100 Ventilator 04/21/17 10:52 100 Ventilator 04/21/17 10:00 104 20 148/72 (97) 100 Ventilator 04/21/17 09:00 108 20 150/73 (98) 100 Ventilator 04/21/17 08:25 100 Ventilator 04/21/17 08:00 99.1 110 19 148/70 (96) 100 Ventilator 99.1 04/21/17 08:00 Mechanical Ventilator 04/21/17 07:24 100 Ventilator 04/21/17 07:00 108 16 125/59 (81) 100 Ventilator Laboratory Laboratory Laboratory Tests Test 04/22/17 00:35 04/22/17 08:00 04/22/17 11:10 Vancomycin Level Trough 17.5 mcg/mL (10.0-20.0) Vancomycin Last Dose Date 04/21/17 Vancomycin Last Dose Time 1300 O2 Saturation 98 % (92-99) Arterial Blood pH 7.42 (7.35-7.45) Arterial Blood pCO2 at Patient Temp 44 mmHg (35-46) Arterial Blood pO2 at Patient Temp 118 mmHg (65-108) Arterial Blood HCO3 28 mmol/L (21-28) Arterial Blood Base Excess 3 mmol/L (-3-3) FiO2 40 White Blood Count 17.4 x10^3/uL (4.0-11.0) Red Blood Count 2.74 x10^6/uL (4.30-5.70) Hemoglobin 8.5 g/dL (13.0-17.5) Hematocrit 26.0 % (39.0-53.0) Mean Corpuscular Volume 95 fL (79-100) Mean Corpuscular Hemoglobin 31 pg (25-35) Mean Corpuscular Hemoglobin Concent 33 g/dL (31-37) Red Cell Distribution Width 16.6 % (11.5-14.5) Platelet Count 55 x10^3/uL (140-400) Neutrophils (%) (Auto) 87 % (31-73) Lymphocytes (%) (Auto) 6 % (24-48) Monocytes (%) (Auto) 6 % (0-9) Eosinophils (%) (Auto) 2 % (0-3) Basophils (%) (Auto) 0 % (0-3) Neutrophils # (Auto) 15.1 x10^3uL (1.8-7.7) Lymphocytes # (Auto) 1.1 x10^3/uL (1.0-4.8) Monocytes # (Auto) 1.0 x10^3/uL (0.0-1.1) Eosinophils # (Auto) 0.3 x10^3/uL (0.0-0.7) Basophils # (Auto) 0.0 x10^3/uL (0.0-0.2) Sodium Level 146 mmol/L (136-145) Potassium Level 2.8 mmol/L (3.5-5.1) Chloride Level 108 mmol/L (98-107) Carbon Dioxide Level 32 mmol/L (21-32) Anion Gap 6 (6-14) Blood Urea Nitrogen 21 mg/dL (8-26) Creatinine 1.1 mg/dL (0.7-1.3) Estimated GFR (Cockcroft-Gault) 65.1 Glucose Level 116 mg/dL (70-99) Calcium Level 8.1 mg/dL (8.5-10.1) Microbiology 04/17/17 Blood Culture - Final, Complete NO GROWTH AFTER 5 DAYS 04/17/17 Gram Stain - Final, Complete 04/17/17 Urine Culture - Final, Complete 04/17/17 Urine Culture Result 1 (ABDULAZIZ) - Final, Complete Medication Medications Current Medications Potassium Chloride 100 ml @ 100 mls/hr Q1H IV Last administered on 04/22/17t 13:18; Start 04/22/17 at 09:00; Stop 04/22/17 at 13:00; Status DC Sodium Chloride 1,000 ml @ 80 mls/hr [id number] IV ; Start 04/22/17 at 09:45 Vancomycin HCl 1 each 1X ONCE MC ; Start 04/22/17 at 00:30; Stop 04/22/17 at 00 :31; Status Cancel Vancomycin HCl 125 mg [id number] PO Last administered on 04/22/17t 09:47; Start at 09:00 Comment Review of Relevant I have reviewed the following items campos (where applicable) has been applied. AI MAJANO MD Apr 22, 2017 14:02
[2017-04-22] MEDS ORDERED: POTASSIUM CHLORIDE 20 MEQ/15 ML ORAL LIQUID. PEG ONE (19:00)
[2017-04-22] MEDS: FUROSEMIDE 40 MG/4 ML VIAL. IVP SCH (20:24)
[2017-04-22] MEDS: MONTELUKAST SODIUM 10 MG TABLET. PO SCH (20:45)
[2017-04-23] VITALS (14 sets, daily range): BP systolic 87–153; BP diastolic 49–84
[2017-04-23] MEDS: POTASSIUM CHLORIDE 10MEQ 100 ML IV SCH ×4 (00:09→04:33)
[2017-04-23] MEDS: PIPERACILLIN/TAZOBACTAM 3.375 GM in IV NORMAL SALINE 50ML 50 ML IV SCH ×3 (00:10→13:19)
[2017-04-23] MEDS: IV 1/2 NORMAL SALINE 1,000 ML IV SCH ×2 (01:54→10:45)
[2017-04-23 05:06] LABS: CALCIUM 8.6 mg/dL (8.5-10.1); CREATININE 1.4 mg/dL (0.7-1.3); GFR 49.3; POTASSIUM 3.6 mmol/L (3.5-5.1)
[2017-04-23] MEDS: amLODIPine BESYLATE 5 MG TABLET PO SCH (08:00)
[2017-04-23] MEDS: CETIRIZINE HCL 10 MG TABLET. PO SCH (08:37)
[2017-04-23] MEDS: FUROSEMIDE 40 MG/4 ML VIAL. IVP SCH (08:39)
[2017-04-23] MEDS: PANTOPRAZOLE IV PUSH 40 MG VIAL. IVP SCH (08:39)
[2017-04-23] MEDS: CHLORHEXIDINE 0.12% 15 ML MOUTHWASH. SWSP SCH (08:41)
[2017-04-23] MEDS: VANCOMYCIN 125 MG/2.5 ML ORAL SOLUTION. PO SCH ×2 (08:41→13:00)
[2017-04-23] MEDS: VALPROIC ACID (AS SODIUM SALT) 500 MG in IV NORMAL SALINE 50ML 50 ML IV SCH (08:41)
[2017-04-23 08:57] LABS: HCO3 ABG 32 mmol/L (21-28); PCO2 ABG 52 mmHg (35-46); PH ABG 7.41 (7.35-7.45); PO2 ABG 119 mmHg (65-108)
[2017-04-23 08:58] LABS: FIO2 ABG 35; SAT O2 ABG 98 % (92-99)
[2017-04-23 09:23] LABS: FIO2 ABG 35; HCO3 ABG 28 mmol/L (21-28); PCO2 ABG 51 mmHg (35-46); PH ABG 7.36 (7.35-7.45); PO2 ABG 108 mmHg (65-108); SAT O2 ABG 97 % (92-99)
--- NOTE | 2017-04-23 11:07 | PDOC ---
PROGRESS NOTES Chief Complaint Chief Complaint A/P 1. PERSISTENT encephalopathy, multifactorial, sepsis, etc 2. Acute hypoxic respiratory failure: on mechanical ventilation 3. GPC bacteremia - contaminant? 4. RADHA: VMN 5. History of dementia, unknown type. 6. Bradycardia, sinus.: resolved. 7. Hypernatremia: on a vented pt 8. Thrombocytopenia in the background of sepsis 9. INcarcerated-inmate 10. HYpernatremia 11. Hypokalemia sec to diarrhea 12. AOCD 13. C diff positive History of Present Illness History of Present Illness Seen on ICU Vent but no sedation and not responsive OTher notes reviewed MAR reviewed Tolerated PS (pressure support) no problems Mentation will be the problem on extubation HX dementia Was using "poop" to write on [facility] PAlliative note reviewed, DPOA knows he can if DNR/DNI DNR DNI CAse mx reviewed, Plan is extubate, then dc to hospice and Dr. Wen ([facility] accept) C diff is pOSITIVE - NEW 04/21 PLAn: Extubation per pulmo SW/case mx for [facility] Will initiate hospice packet when this happens Dw DUMPER BULK SYSTEM DNR DNI ON Keppra IV BID for SZ ON vanc PO for new c diff Vitals Vitals Vital Signs Date Time Temp Pulse Resp B/P (MAP) Pulse Ox O2 Delivery O2 Flow Rate FiO2 04/23/17 09:00 90 20 129/65 (86) 100 Ventilator 04/23/17 08:00 99.6 99.6 Physical Exam General: Other (OFF SEDATION, INTUBATED, non verbal) Heart: Normal S1, Normal S2 Lungs: Clear, Crackles Abdomen: Normal bowel sounds Extremities: No clubbing Skin: No rashes Labs LABS Laboratory Tests Test 04/22/17 11:10 04/22/17 13:45 04/23/17 04:00 04/23/17 08:25 White Blood Count 17.4 x10^3/uL (4.0-11.0) Red Blood Count 2.74 x10^6/uL (4.30-5.70) Hemoglobin 8.5 g/dL (13.0-17.5) Hematocrit 26.0 % (39.0-53.0) Mean Corpuscular Volume 95 fL (79-100) Mean Corpuscular Hemoglobin 31 pg (25-35) Mean Corpuscular Hemoglobin Concent 33 g/dL (31-37) Red Cell Distribution Width 16.6 % (11.5-14.5) Platelet Count 55 x10^3/uL (140-400) Neutrophils (%) (Auto) 87 % (31-73) Lymphocytes (%) (Auto) 6 % (24-48) Monocytes (%) (Auto) 6 % (0-9) Eosinophils (%) (Auto) 2 % (0-3) Basophils (%) (Auto) 0 % (0-3) Neutrophils # (Auto) 15.1 x10^3uL (1.8-7.7) Lymphocytes # (Auto) 1.1 x10^3/uL (1.0-4.8) Monocytes # (Auto) 1.0 x10^3/uL (0.0-1.1) Eosinophils # (Auto) 0.3 x10^3/uL (0.0-0.7) Basophils # (Auto) 0.0 x10^3/uL (0.0-0.2) Sodium Level 146 mmol/L (136-145) 147 mmol/L (136-145) Potassium Level 2.8 mmol/L (3.5-5.1) 3.6 mmol/L (3.5-5.1) Chloride Level 108 mmol/L (98-107) 109 mmol/L (98-107) Carbon Dioxide Level 32 mmol/L (21-32) 35 mmol/L (21-32) Anion Gap 6 (6-14) 3 (6-14) Blood Urea Nitrogen 21 mg/dL (8-26) 20 mg/dL (8-26) Creatinine 1.1 mg/dL (0.7-1.3) 1.4 mg/dL (0.7-1.3) Estimated GFR (Cockcroft-Gault) 65.1 49.3 Glucose Level 116 mg/dL (70-99) 97 mg/dL (70-99) Calcium Level 8.1 mg/dL (8.5-10.1) 8.6 mg/dL (8.5-10.1) O2 Saturation 97 % (92-99) 98 % (92-99) Arterial Blood pH 7.36 (7.35-7.45) 7.41 (7.35-7.45) Arterial Blood pCO2 at Patient Temp 51 mmHg (35-46) 52 mmHg (35-46) Arterial Blood pO2 at Patient Temp 108 mmHg (65-108) 119 mmHg (65-108) Arterial Blood HCO3 28 mmol/L (21-28) 32 mmol/L (21-28) Arterial Blood Base Excess 2 mmol/L (-3-3) 6 mmol/L (-3-3) FiO2 35 35 Review of Systems Review of Systems intubated Comment Review of Relevant I have reviewed the following items campos (where applicable) has been applied. Labs Laboratory Tests Test 04/21/17 13:00 04/22/17 00:35 04/22/17 08:00 04/22/17 11:10 Clostridium difficile Toxin (PCR) Positive (Negative) Vancomycin Level Trough 17.5 mcg/mL (10.0-20.0) Vancomycin Last Dose Date 04/21/17 Vancomycin Last Dose Time 1300 O2 Saturation 98 % (92-99) Arterial Blood pH 7.42 (7.35-7.45) Arterial Blood pCO2 at Patient Temp 44 mmHg (35-46) Arterial Blood pO2 at Patient Temp 118 mmHg (65-108) Arterial Blood HCO3 28 mmol/L (21-28) Arterial Blood Base Excess 3 mmol/L (-3-3) FiO2 40 White Blood Count 17.4 x10^3/uL (4.0-11.0) Red Blood Count 2.74 x10^6/uL (4.30-5.70) Hemoglobin 8.5 g/dL (13.0-17.5) Hematocrit 26.0 % (39.0-53.0) Mean Corpuscular Volume 95 fL (79-100) Mean Corpuscular Hemoglobin 31 pg (25-35) Mean Corpuscular Hemoglobin Concent 33 g/dL (31-37) Red Cell Distribution Width 16.6 % (11.5-14.5) Platelet Count 55 x10^3/uL (140-400) Neutrophils (%) (Auto) 87 % (31-73) Lymphocytes (%) (Auto) 6 % (24-48) Monocytes (%) (Auto) 6 % (0-9) Eosinophils (%) (Auto) 2 % (0-3) Basophils (%) (Auto) 0 % (0-3) Neutrophils # (Auto) 15.1 x10^3uL (1.8-7.7) Lymphocytes # (Auto) 1.1 x10^3/uL (1.0-4.8) Monocytes # (Auto) 1.0 x10^3/uL (0.0-1.1) Eosinophils # (Auto) 0.3 x10^3/uL (0.0-0.7) Basophils # (Auto) 0.0 x10^3/uL (0.0-0.2) Sodium Level 146 mmol/L (136-145) Potassium Level 2.8 mmol/L (3.5-5.1) Chloride Level 108 mmol/L (98-107) Carbon Dioxide Level 32 mmol/L (21-32) Anion Gap 6 (6-14) Blood Urea Nitrogen 21 mg/dL (8-26) Creatinine 1.1 mg/dL (0.7-1.3) Estimated GFR (Cockcroft-Gault) 65.1 Glucose Level 116 mg/dL (70-99) Calcium Level 8.1 mg/dL (8.5-10.1) Test 04/22/17 13:45 04/23/17 04:00 04/23/17 08:25 O2 Saturation 97 % (92-99) 98 % (92-99) Arterial Blood pH 7.36 (7.35-7.45) 7.41 (7.35-7.45) Arterial Blood pCO2 at Patient Temp 51 mmHg (35-46) 52 mmHg (35-46) Arterial Blood pO2 at Patient Temp 108 mmHg (65-108) 119 mmHg (65-108) Arterial Blood HCO3 28 mmol/L (21-28) 32 mmol/L (21-28) Arterial Blood Base Excess 2 mmol/L (-3-3) 6 mmol/L (-3-3) FiO2 35 35 Sodium Level 147 mmol/L (136-145) Potassium Level 3.6 mmol/L (3.5-5.1) Chloride Level 109 mmol/L (98-107) Carbon Dioxide Level 35 mmol/L (21-32) Anion Gap 3 (6-14) Blood Urea Nitrogen 20 mg/dL (8-26) Creatinine 1.4 mg/dL (0.7-1.3) Estimated GFR (Cockcroft-Gault) 49.3 Glucose Level 97 mg/dL (70-99) Calcium Level 8.6 mg/dL (8.5-10.1) Laboratory Tests Test 04/22/17 11:10 04/22/17 13:45 04/23/17 04:00 04/23/17 08:25 White Blood Count 17.4 x10^3/uL (4.0-11.0) Red Blood Count 2.74 x10^6/uL (4.30-5.70) Hemoglobin 8.5 g/dL (13.0-17.5) Hematocrit 26.0 % (39.0-53.0) Mean Corpuscular Volume 95 fL (79-100) Mean Corpuscular Hemoglobin 31 pg (25-35) Mean Corpuscular Hemoglobin Concent 33 g/dL (31-37) Red Cell Distribution Width 16.6 % (11.5-14.5) Platelet Count 55 x10^3/uL (140-400) Neutrophils (%) (Auto) 87 % (31-73) Lymphocytes (%) (Auto) 6 % (24-48) Monocytes (%) (Auto) 6 % (0-9) Eosinophils (%) (Auto) 2 % (0-3) Basophils (%) (Auto) 0 % (0-3) Neutrophils # (Auto) 15.1 x10^3uL (1.8-7.7) Lymphocytes # (Auto) 1.1 x10^3/uL (1.0-4.8) Monocytes # (Auto) 1.0 x10^3/uL (0.0-1.1) Eosinophils # (Auto) 0.3 x10^3/uL (0.0-0.7) Basophils # (Auto) 0.0 x10^3/uL (0.0-0.2) Sodium Level 146 mmol/L (136-145) 147 mmol/L (136-145) Potassium Level 2.8 mmol/L (3.5-5.1) 3.6 mmol/L (3.5-5.1) Chloride Level 108 mmol/L (98-107) 109 mmol/L (98-107) Carbon Dioxide Level 32 mmol/L (21-32) 35 mmol/L (21-32) Anion Gap 6 (6-14) 3 (6-14) Blood Urea Nitrogen 21 mg/dL (8-26) 20 mg/dL (8-26) Creatinine 1.1 mg/dL (0.7-1.3) 1.4 mg/dL (0.7-1.3) Estimated GFR (Cockcroft-Gault) 65.1 49.3 Glucose Level 116 mg/dL (70-99) 97 mg/dL (70-99) Calcium Level 8.1 mg/dL (8.5-10.1) 8.6 mg/dL (8.5-10.1) O2 Saturation 97 % (92-99) 98 % (92-99) Arterial Blood pH 7.36 (7.35-7.45) 7.41 (7.35-7.45) Arterial Blood pCO2 at Patient Temp 51 mmHg (35-46) 52 mmHg (35-46) Arterial Blood pO2 at Patient Temp 108 mmHg (65-108) 119 mmHg (65-108) Arterial Blood HCO3 28 mmol/L (21-28) 32 mmol/L (21-28) Arterial Blood Base Excess 2 mmol/L (-3-3) 6 mmol/L (-3-3) FiO2 35 35 Microbiology 04/17/17 Blood Culture - Final, Complete NO GROWTH AFTER 5 DAYS 04/17/17 Gram Stain - Final, Complete 04/17/17 Urine Culture - Final, Complete 04/17/17 Urine Culture Result 1 (ABDULAZIZ) - Final, Complete Medications Current Medications Lorazepam (Ativan) 1 mg PRN Q1HR PRN IV ANXIETY / AGITATION; Start 04/16/17 at 09:30 Acetaminophen (Tylenol) 325 mg PRN Q6HRS PRN PO MILD PAIN / TEMP; Start at 11:00 Acetaminophen/ Hydrocodone Bitart (Lortab 5/325) 1 tab PRN Q6HRS PRN PO MODERATE TO SEVERE PAIN; Start 04/16/17 at 11:00 Hydralazine HCl (Apresoline) 10 mg PRN Q4HRS PRN IVP ELEVATED BP, SEE COMMENTS Last administered on 04/21/17t 00:18; Start 04/16/17 at 11:00 Ondansetron HCl (Zofran) 4 mg PRN Q8HRS PRN IV NAUSEA/VOMITING; Start 04/16/17 at 11:00 Albuterol Sulfate (Ventolin Neb Soln) 2.5 mg PRN Q4HRS PRN NEB SHORTNESS OF BREATH Last administered on 04/18/17 16:56; Start 04/16/17 at 11:00 Amlodipine Besylate (Norvasc) 5 mg DAILY PO Last administered on 04/21/17 11: 49; Start 04/16/17 at 12:00 Cetirizine HCl (ZyrTEC) 10 mg DAILY PO Last administered on 04/23/17 08:37; Start 04/16/17 at 12:00 Divalproex Sodium (Depakote) 500 mg BID PO ; Start 04/16/17 at 12:00; Status Cancel Levetiracetam (Keppra) 500 mg BID PO ; Start 04/16/17 at 12:00; Stop 04/16/17 at 12:13; Status DC Montelukast Sodium (Singulair) 10 mg HS PO Last administered on 04/22/17 20:45 ; Start 04/16/17 at 21:00 Levetiracetam (Keppra) 500 mg 1X ONCE PO ; Start 04/17/17 at 12:00; Stop at 12:00; Status DC Levetiracetam 500 mg/Sodium Chloride 100 ml @ 400 mls/hr Q12HR IV Last administered on 04/16/17 12:52; Start 04/16/17 at 12:00; Stop 04/16/17 at 16:28 ; Status DC Valproic Acid 500 mg/Sodium Chloride 55 ml @ 55 mls/hr Q12HR IV Last administered on 04/23/17 08:41; Start 04/16/17 at 12:00 Levetiracetam 1000 mg/Sodium Chloride 110 ml @ 400 mls/hr Q12H IV Last administered on 04/17/17 09:35; Start 04/16/17 at 21:30; Stop 04/17/17 at 10:35 ; Status DC Levetiracetam 500 mg/Sodium Chloride 100 ml @ 400 mls/hr 1X ONCE IV Last administered on 04/16/17 16:54; Start 04/16/17 at 17:00; Stop 04/16/17 at 17:14 ; Status DC Lacosamide 100 mg/ Sodium Chloride 60 ml @ 120 mls/hr BID IV Last administered on 04/20/17 08:50; Start 04/16/17 at 21:00; Stop 04/20/17 at 14:44 ; Status DC Lacosamide 100 mg/ Sodium Chloride 60 ml @ 120 mls/hr 1X ONCE IV Last administered on 04/16/17 16:55; Start 04/16/17 at 17:30; Stop 04/16/17 at 17:59 ; Status DC Pantoprazole Sodium (Protonix) 40 mg DAILYAC PO Last administered on 04/17/17 09:32; Start 04/16/17 at 17:00; Stop 04/19/17 at 10:48; Status DC Sodium Chloride 1,000 ml @ 1,000 mls/hr 1X ONCE IV Last administered on 00:48; Start 04/17/17 at 01:00; Stop 04/17/17 at 01:59; Status DC Norepinephrine Bitartrate 250 ml @ 0 mls/hr CONT PRN IV SEE I/O RECORD Last administered on 04/17/17 01:25; Start 04/17/17 at 00:45 Midazolam HCl 100 ml @ 0 mls/hr CONT PRN IV SEE I/O RECORD; Start 04/17/17 at 01:00 Ceftriaxone Sodium 1 gm/ Sodium Chloride 50 ml @ 100 mls/hr Q24H IV Last administered on 04/20/17 08:50; Start 04/17/17 at 09:00; Stop 04/21/17 at 07:51 ; Status DC Levetiracetam 750 mg/Sodium Chloride 107.5 ml @ 440 mls/hr Q12HR IV Last administered on 04/22/17 09:51; Start 04/17/17 at 21:00; Stop 04/22/17 at 14:05 ; Status DC Sodium Chloride 1,000 ml @ 75 mls/hr [id number] IV ; Start 04/17/17 at 13:00; Stop 04/17/17 at 13:02; Status DC Dextrose/Sodium Chloride 1,000 ml @ 75 mls/hr [id number] IV Last administered on 04/18/17 20:42; Start 04/17/17 at 13:15; Stop 04/19/17 at 08:03; Status DC Vancomycin HCl (Vanco Per Pharmacy) 1 each PRN DAILY PRN MC SEE COMMENTS Last administered on 04/21/17 10:20; Start 04/18/17 at 10:15; Stop 04/22/17 at 00:31 ; Status DC Vancomycin HCl 2 gm/Sodium Chloride 500 ml @ 250 mls/hr 1X ONCE IV Last administered on 04/18/17 12:13; Start 04/18/17 at 10:30; Stop 04/18/17 at 12:29 ; Status DC Vancomycin HCl 1.25 gm/Sodium Chloride 250 ml @ 167 mls/hr Q24H IV Last administered on 04/19/17 11:22; Start 04/19/17 at 12:00; Stop 04/20/17 at 12:31 ; Status DC Vancomycin HCl 1 each 1X ONCE MC ; Start 04/20/17 at 11:30; Stop 04/20/17 at 11 :31; Status DC Chlorhexidine Gluconate (Peridex) 15 ml BID SWSP Last administered on 08:41; Start 04/18/17 at 21:00 Haloperidol Lactate (Haldol) 5 mg PRN Q6HRS PRN IVP AGITATION Last administered on 04/18/17 22:18; Start 04/18/17 at 16:30 Scopolamine (Transderm-Scop) 1 patch Q3DAYS TD Last administered on 04/21/17 11:50; Start 04/18/17 at 20:00 Pantoprazole Sodium (Protonix Vial) 40 mg DAILYAC IVP Last administered on 04/23 08:39; Start 04/19/17 at 11:00 Enoxaparin Sodium (Lovenox 40mg Syringe) 40 mg Q24H SQ Last administered on 12:00; Start 04/19/17 at 12:00; Stop 04/20/17 at 12:48; Status DC Dextrose/Sodium Chloride 1,000 ml @ 45 mls/hr [id number] IV Last administered on 04/20/17 11:35; Start 04/19/17 at 12:00; Stop 04/20/17 at 11:59; Status DC Vancomycin HCl 1.25 gm/Sodium Chloride 250 ml @ 167 mls/hr Q12H IV Last administered on 04/21/17 14:51; Start 04/20/17 at 13:00; Stop 04/22/17 at 00:24 ; Status DC Vancomycin HCl 1 each 1X ONCE MC ; Start 04/22/17 at 00:30; Stop 04/22/17 at 00 :31; Status Cancel Potassium Chloride 100 ml @ 100 mls/hr Q1H IV Last administered on 04/21/17 13:06; Start 04/21/17 at 05:30; Stop 04/21/17 at 09:29; Status DC Piperacillin Sod/ Tazobactam Sod 3.375 gm/Sodium Chloride 50 ml @ 100 mls/hr Q6HRS IV Last administered on 04/23/17 05:41; Start 04/21/17 at 08:00 Vancomycin HCl 125 mg [id number] PO Last administered on 04/23/17 08:41; Start at 09:00 Potassium Chloride 100 ml @ 100 mls/hr Q1H IV Last administered on 04/22/17 16:49; Start 04/22/17 at 09:00; Stop 04/22/17 at 13:00; Status DC Sodium Chloride 1,000 ml @ 80 mls/hr [id number] IV Last administered on 01:54; Start 04/22/17 at 09:45 Levetiracetam 500 mg/Sodium Chloride 105 ml @ 0 mls/hr Q12HR IV Last administered on 04/23/17 08:40; Start 04/22/17 at 21:00 Potassium Chloride (KCl Oral Soln) 40 meq 1X ONCE PEG Last administered on 20:25; Start 04/22/17 at 19:00; Stop 04/22/17 at 19:01; Status DC Potassium Chloride 100 ml @ 100 mls/hr Q1H IV Last administered on 04/23/17 04:33; Start 04/23/17 at 00:00; Stop 04/23/17 at 03:59; Status DC Furosemide (Lasix) 40 mg DAILY IVP Last administered on 04/23/17 08:39; Start 04/22/17 at 19:30 Active Scripts Active Reported Montelukast Sodium Tablet (Montelukast Sodium) 10 Mg Tablet 10 Mg PO HS Zyrtec (Cetirizine Hcl) 10 Mg Tablet 10 Tab PO DAILY Ibuprofen 400 Mg Tablet 400 Mg PO TID Keppra (Levetiracetam) 500 Mg Tablet 500 Tab PO BID Depakote (Divalproex Sodium) 500 Mg Tablet.dr 500 Tab PO BID Amlodipine Besylate 5 Mg Tablet 5 Mg PO DAILY Vitals/I & O Vital Sign - Last 24 Hours 04/22/17 04/22/17 04/22/17 04/22/17 11:12 12:00 12:00 13:00 Temp 97.4 97.8 97.4 97.8 Pulse 64 82 Resp 11 15 B/P (MAP) 71/42 (52) 106/56 (73) Pulse Ox 100 100 100 O2 Delivery Ventilator Mechanical Ventilator Ventilator Ventilator 04/22/17 04/22/17 04/22/17 04/22/17 14:00 14:43 15:00 16:00 Temp 98.1 98.1 Pulse 84 80 Resp 17 15 B/P (MAP) 96/51 (66) 103/55 (71) Pulse Ox 100 100 100 O2 Delivery Ventilator Ventilator Ventilator Mechanical Ventilator 04/22/17 04/22/17 04/22/17 04/22/17 16:00 16:44 17:00 18:00 Temp 98.3 98.3 Pulse 76 84 96 Resp 12 16 23 B/P (MAP) 105/59 (74) 115/60 (78) 115/65 (82) Pulse Ox 100 99 100 100 O2 Delivery Ventilator Ventilator Ventilator Ventilator 04/22/17 04/22/17 04/22/17 04/22/17 18:29 19:00 19:30 20:00 Temp 98.6 98.6 Pulse 79 Resp 12 B/P (MAP) 110/66 (81) Pulse Ox 98 100 100 O2 Delivery Ventilator Ventilator Ventilator Mechanical Ventilator 04/22/17 04/22/17 04/22/17 04/22/17 20:00 21:00 21:19 22:00 Pulse 80 83 85 Resp 13 15 16 B/P (MAP) 87/53 (64) 118/67 (84) 111/65 (80) Pulse Ox 100 100 100 100 O2 Delivery Ventilator Ventilator Ventilator Ventilator 04/22/17 04/22/17 04/23/17 04/23/17 23:00 23:20 00:00 00:00 Temp 98.2 98.2 Pulse 80 96 Resp 13 15 B/P (MAP) 89/48 (62) 109/63 (78) Pulse Ox 100 100 100 O2 Delivery Ventilator Ventilator Mechanical Ventilator Ventilator 04/23/17 04/23/17 04/23/17 04/23/17 01:00 01:15 02:00 03:00 Temp 97.8 97.8 Pulse 74 91 84 Resp 15 15 15 B/P (MAP) 153/79 (103) 122/60 (80) 115/66 (82) Pulse Ox 100 100 100 100 O2 Delivery Ventilator Ventilator Ventilator 04/23/17 04/23/17 04/23/17 04/23/17 03:50 04:00 04:00 05:00 Pulse 82 84 Resp 15 B/P (MAP) 114/64 (81) 109/56 (73) Pulse Ox 100 100 100 O2 Delivery Ventilator Mechanical Ventilator Ventilator 04/23/17 04/23/17 04/23/17 04/23/17 05:31 06:00 07:00 07:15 Pulse 91 84 Resp 24 18 B/P (MAP) 119/67 (84) 100/84 (89) Pulse Ox 100 100 100 100 O2 Delivery Ventilator Ventilator Ventilator Ventilator 04/23/17 04/23/17 04/23/17 04/23/17 08:00 08:00 08:00 08:38 Temp 99.6 99.6 Pulse 83 93 Resp 20 B/P (MAP) 87/49 87/49 (62) Pulse Ox 100 100 O2 Delivery Ventilator Mechanical Ventilator Ventilator 04/23/17 09:00 Pulse 90 Resp 20 B/P (MAP) 129/65 (86) Pulse Ox 100 O2 Delivery Ventilator Intake and Output 04/22/17 04/22/17 04/23/17 15:00 23:00 07:00 Intake Total 942.5 ml 1970 ml 3048 ml Output Total 370 ml 1675 ml 1725 ml Balance 572.5 ml 295 ml 1323 ml SELMA DONOVAN MD Apr 23, 2017 11:07
--- NOTE | 2017-04-23 12:15 | PDOC3 ---
Discharge Summary Visit Information Date of Admission: Apr 16, 2017 Date of Discharge: Apr 23, 2017 Admitting Diagnosis Comment: A/P 1. PERSISTENT encephalopathy, multifactorial, sepsis, etc 2. Acute hypoxic respiratory failure: on mechanical ventilation 3. GPC bacteremia - contaminant? 4. RADHA: VMN 5. History of dementia, unknown type. 6. Bradycardia, sinus.: resolved. 7. Hypernatremia: on a vented pt 8. Thrombocytopenia in the background of sepsis 9. INcarcerated-inmate 10. HYpernatremia 11. Hypokalemia sec to diarrhea 12. AOCD 13. C diff positive Brief Hospital Course Allergies Allergies Coded Allergies Type Severity Reaction Last Updated Verified No Known Drug Allergies 04/16/17 No Vital Signs Vital Signs Date Time Temp Pulse Resp B/P (MAP) Pulse Ox O2 Delivery O2 Flow Rate FiO2 04/23/17 11:00 87 15 131/68 (89) 100 Ventilator 04/23/17 08:00 99.6 99.6 Lab Results Laboratory Tests Test 04/21/17 13:00 04/22/17 00:35 04/22/17 08:00 04/22/17 11:10 Clostridium difficile Toxin (PCR) Positive (Negative) Vancomycin Level Trough 17.5 mcg/mL (10.0-20.0) Vancomycin Last Dose Date 04/21/17 Vancomycin Last Dose Time 1300 O2 Saturation 98 % (92-99) Arterial Blood pH 7.42 (7.35-7.45) Arterial Blood pCO2 at Patient Temp 44 mmHg (35-46) Arterial Blood pO2 at Patient Temp 118 mmHg (65-108) Arterial Blood HCO3 28 mmol/L (21-28) Arterial Blood Base Excess 3 mmol/L (-3-3) FiO2 40 White Blood Count 17.4 x10^3/uL (4.0-11.0) Red Blood Count 2.74 x10^6/uL (4.30-5.70) Hemoglobin 8.5 g/dL (13.0-17.5) Hematocrit 26.0 % (39.0-53.0) Mean Corpuscular Volume 95 fL (79-100) Mean Corpuscular Hemoglobin 31 pg (25-35) Mean Corpuscular Hemoglobin Concent 33 g/dL (31-37) Red Cell Distribution Width 16.6 % (11.5-14.5) Platelet Count 55 x10^3/uL (140-400) Neutrophils (%) (Auto) 87 % (31-73) Lymphocytes (%) (Auto) 6 % (24-48) Monocytes (%) (Auto) 6 % (0-9) Eosinophils (%) (Auto) 2 % (0-3) Basophils (%) (Auto) 0 % (0-3) Neutrophils # (Auto) 15.1 x10^3uL (1.8-7.7) Lymphocytes # (Auto) 1.1 x10^3/uL (1.0-4.8) Monocytes # (Auto) 1.0 x10^3/uL (0.0-1.1) Eosinophils # (Auto) 0.3 x10^3/uL (0.0-0.7) Basophils # (Auto) 0.0 x10^3/uL (0.0-0.2) Sodium Level 146 mmol/L (136-145) Potassium Level 2.8 mmol/L (3.5-5.1) Chloride Level 108 mmol/L (98-107) Carbon Dioxide Level 32 mmol/L (21-32) Anion Gap 6 (6-14) Blood Urea Nitrogen 21 mg/dL (8-26) Creatinine 1.1 mg/dL (0.7-1.3) Estimated GFR (Cockcroft-Gault) 65.1 Glucose Level 116 mg/dL (70-99) Calcium Level 8.1 mg/dL (8.5-10.1) Test 04/22/17 13:45 04/23/17 04:00 04/23/17 08:25 O2 Saturation 97 % (92-99) 98 % (92-99) Arterial Blood pH 7.36 (7.35-7.45) 7.41 (7.35-7.45) Arterial Blood pCO2 at Patient Temp 51 mmHg (35-46) 52 mmHg (35-46) Arterial Blood pO2 at Patient Temp 108 mmHg (65-108) 119 mmHg (65-108) Arterial Blood HCO3 28 mmol/L (21-28) 32 mmol/L (21-28) Arterial Blood Base Excess 2 mmol/L (-3-3) 6 mmol/L (-3-3) FiO2 35 35 Sodium Level 147 mmol/L (136-145) Potassium Level 3.6 mmol/L (3.5-5.1) Chloride Level 109 mmol/L (98-107) Carbon Dioxide Level 35 mmol/L (21-32) Anion Gap 3 (6-14) Blood Urea Nitrogen 20 mg/dL (8-26) Creatinine 1.4 mg/dL (0.7-1.3) Estimated GFR (Cockcroft-Gault) 49.3 Glucose Level 97 mg/dL (70-99) Calcium Level 8.6 mg/dL (8.5-10.1) Laboratory Tests Test 04/22/17 13:45 04/23/17 04:00 04/23/17 08:25 O2 Saturation 97 % (92-99) 98 % (92-99) Arterial Blood pH 7.36 (7.35-7.45) 7.41 (7.35-7.45) Arterial Blood pCO2 at Patient Temp 51 mmHg (35-46) 52 mmHg (35-46) Arterial Blood pO2 at Patient Temp 108 mmHg (65-108) 119 mmHg (65-108) Arterial Blood HCO3 28 mmol/L (21-28) 32 mmol/L (21-28) Arterial Blood Base Excess 2 mmol/L (-3-3) 6 mmol/L (-3-3) FiO2 35 35 Sodium Level 147 mmol/L (136-145) Potassium Level 3.6 mmol/L (3.5-5.1) Chloride Level 109 mmol/L (98-107) Carbon Dioxide Level 35 mmol/L (21-32) Anion Gap 3 (6-14) Blood Urea Nitrogen 20 mg/dL (8-26) Creatinine 1.4 mg/dL (0.7-1.3) Estimated GFR (Cockcroft-Gault) 49.3 Glucose Level 97 mg/dL (70-99) Calcium Level 8.6 mg/dL (8.5-10.1) Brief Hospital Course Mr. Soto is a 76 old AA male admitted fall, seizure, baseline dementia in senior living, Intubated x 7 days, NO sedation for many days but no response,. Palliative consulted,. Remained tubed x 7 days with no meaningful purproseful mentation/movement, Diarrhea, c diff positive first time we know of,, DNR NDI now hospcie, BAck to senior living on hospice. CAnt swallow PO, too confused, DispO; [facility] notes today Discharge Information Condition at Discharge: Comment (hospice) Disposition/Orders: D/C to Another Facility, Other (penitentiary) Scheduled Amlodipine Besylate (Amlodipine Besylate), 5 MG PO DAILY, (Reported) Cetirizine Hcl (Zyrtec), 10 TAB PO DAILY, (Reported) Divalproex Sodium (Depakote), 500 TAB PO BID, (Reported) Ibuprofen (Ibuprofen), 400 MG PO TID, (Reported) Levetiracetam (Keppra), 500 TAB PO BID, (Reported) Montelukast Sodium (Montelukast Sodium Tablet), 10 MG PO HS, (Reported) SELMA DONOVAN MD Apr 23, 2017 12:15
--- NOTE | 2017-04-23 13:48 | PDOC ---
PROGRESS NOTES Assessment Assessment Status epilepticus Seizure Metabolic encephalopathy. Respiratory failure. Leukocytosis HTN Bradycardia Hypothyroidism RECOMMENDATIONS/PLAN:. Treat medical diseases. Continue IV Keppra and Depakote, but decrease Keppra dose form 750 mg bid to 500 mg bid. Discontinued Vimpat 100 mg IV bid on 04/20/17. EEG on 04/19/17: Diffuse encephalopathy. No seizure activity. HCT w/o contrast on 04/19: No acute findings. SUBJECTIVE: Off vent. Increased response. OBJECTIVE: On NC O2. ALLERGIES: NKDA. FAMILY HISTORY: Not obtainable. SOCIAL HISTORY: He is incarcerated, but completed his sentence. 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 MEDICATIONS: Refer to [facility] REVIEW OF SYSTEMS: See PMx. PHYSICAL EXAMINATION: General appearance in subacute distress. HEENT: Normocephalic and nontraumatic. Eyes, nose, ears, and throat are unremarkable. Hearing decrease. Neck is supple. No lymphadenopathy. No Crepitus. Cardiovascular: S1, S2, regular rate and rhythm. Pulmonary: Clear to auscultation bilaterally. Abdomen: Bowel sounds are positive. Extremities: No rash, lesions, or edema. No restriction of range of motion NEUROLOGICAL EXAMINATION: Sleepiness Off vent, on NC O2. Off sedation for 5 days. Not oriented to time, place and person. PERRL. EOMI not elicited. CN: no focal findings. Muscle tone: fluctuated. Muscle strength: Moves all extremities to stimuli. DTR: 1+ Plantar reflex: Neutral response bilaterally Gait: not examined in bed. Sensory exam: Moves all extremities to stimuli. Not able to access cerebellar signs. Objective Objective Vital Signs Date Time Temp Pulse Resp B/P (MAP) Pulse Ox O2 Delivery O2 Flow Rate FiO2 04/23/17 13:00 92 23 122/70 (87) 94 Room Air 04/23/17 12:00 97.7 97.7 Intake and Output 04/23/17 07:00 Intake Total 5960.5 ml Output Total 3770 ml Balance 2190.5 ml IV Total 2162.5 ml Tube Feeding 2107 ml Blood Product IV Normal Saline Flush 700 ml Other 991 ml Output Urine Total 3770 ml # Bowel Movements 1 Vitals Signs Vitals VS - Last 72 Hours, by Label Date Time Temp Pulse Resp B/P (MAP) Pulse Ox O2 Delivery O2 Flow Rate FiO2 04/23/17 13:00 92 23 122/70 (87) 94 Room Air 04/23/17 12:00 97.7 87 22 128/69 (88) 97 Room Air 97.7 04/23/17 12:00 Room Air 04/23/17 11:00 87 15 131/68 (89) 100 Ventilator 04/23/17 10:00 82 13 100/82 (88) 100 Ventilator 04/23/17 09:00 90 20 129/65 (86) 100 Ventilator 04/23/17 08:38 100 Ventilator 04/23/17 08:00 Mechanical Ventilator 04/23/17 08:00 99.6 93 20 87/49 (62) 100 Ventilator 99.6 04/23/17 08:00 83 87/49 04/23/17 07:15 100 Ventilator 04/23/17 07:00 84 18 100/84 (89) 100 Ventilator 04/23/17 06:00 91 24 119/67 (84) 100 Ventilator 04/23/17 05:31 100 Ventilator 04/23/17 05:00 84 15 109/56 (73) 100 Ventilator 04/23/17 04:00 Mechanical Ventilator 04/23/17 04:00 82 114/64 (81) 100 04/23/17 03:50 100 Ventilator 04/23/17 03:00 97.8 84 15 115/66 (82) 100 97.8 04/23/17 02:00 91 15 122/60 (80) 100 Ventilator 04/23/17 01:15 100 Ventilator 04/23/17 01:00 74 15 153/79 (103) 100 Ventilator 04/23/17 00:00 96 15 109/63 (78) 100 Ventilator 04/23/17 00:00 Mechanical Ventilator 04/22/17 23:20 100 Ventilator 04/22/17 23:00 98.2 80 13 89/48 (62) 100 Ventilator 98.2 04/22/17 22:00 85 16 111/65 (80) 100 Ventilator 04/22/17 21:19 100 Ventilator 04/22/17 21:00 83 15 118/67 (84) 100 Ventilator 04/22/17 20:00 80 13 87/53 (64) 100 Ventilator 04/22/17 20:00 Mechanical Ventilator 04/22/17 19:30 100 Ventilator 04/22/17 19:00 98.6 79 12 110/66 (81) 100 Ventilator 98.6 04/22/17 18:29 98 Ventilator 04/22/17 18:00 98.3 96 23 115/65 (82) 100 Ventilator 98.3 04/22/17 17:00 84 16 115/60 (78) 100 Ventilator 04/22/17 16:44 99 Ventilator 04/22/17 16:00 76 12 105/59 (74) 100 Ventilator 04/22/17 16:00 Mechanical Ventilator 04/22/17 15:00 98.1 80 15 103/55 (71) 100 Ventilator 98.1 04/22/17 14:43 100 Ventilator 04/22/17 14:00 84 17 96/51 (66) 100 Ventilator 04/22/17 13:00 97.8 82 15 106/56 (73) 100 Ventilator 97.8 04/22/17 12:00 97.4 64 11 71/42 (52) 100 Ventilator 97.4 04/22/17 12:00 Mechanical Ventilator 04/22/17 11:12 100 Ventilator 04/22/17 11:00 64 10 86/48 (61) 100 Ventilator 04/22/17 10:00 94.5 64 12 99/66 (77) 100 Ventilator 94.5 04/22/17 09:15 98 Ventilator 04/22/17 09:00 64 12 105/53 (70) 97 Ventilator 04/22/17 09:00 60 95/57 04/22/17 08:00 Mechanical Ventilator 04/22/17 08:00 62 12 96/54 (68) 97 Ventilator 04/22/17 07:26 100 Ventilator 04/22/17 07:00 94.5 62 12 87/56 (66) 100 Ventilator 94.5 Laboratory Laboratory Laboratory Tests Test 04/22/17 13:45 04/23/17 04:00 04/23/17 08:25 O2 Saturation 97 % (92-99) 98 % (92-99) Arterial Blood pH 7.36 (7.35-7.45) 7.41 (7.35-7.45) Arterial Blood pCO2 at Patient Temp 51 mmHg (35-46) 52 mmHg (35-46) Arterial Blood pO2 at Patient Temp 108 mmHg (65-108) 119 mmHg (65-108) Arterial Blood HCO3 28 mmol/L (21-28) 32 mmol/L (21-28) Arterial Blood Base Excess 2 mmol/L (-3-3) 6 mmol/L (-3-3) FiO2 35 35 Sodium Level 147 mmol/L (136-145) Potassium Level 3.6 mmol/L (3.5-5.1) Chloride Level 109 mmol/L (98-107) Carbon Dioxide Level 35 mmol/L (21-32) Anion Gap 3 (6-14) Blood Urea Nitrogen 20 mg/dL (8-26) Creatinine 1.4 mg/dL (0.7-1.3) Estimated GFR (Cockcroft-Gault) 49.3 Glucose Level 97 mg/dL (70-99) Calcium Level 8.6 mg/dL (8.5-10.1) Microbiology 04/17/17 Blood Culture - Final, Complete NO GROWTH AFTER 5 DAYS 04/17/17 Gram Stain - Final, Complete 04/17/17 Urine Culture - Final, Complete 04/17/17 Urine Culture Result 1 ([id number]) - Final, Complete Medication Medications Current Medications Furosemide (Lasix) 40 mg DAILY IVP Last administered on 04/23/17 08:39; Start 04/22/17 at 19:30 Levetiracetam 500 mg/Sodium Chloride 105 ml @ 0 mls/hr Q12HR IV Last administered on 04/23/17 08:40; Start 04/22/17 at 21:00 Potassium Chloride 100 ml @ 100 mls/hr Q1H IV Last administered on 04/23/17 04:33; Start 04/23/17 at 00:00; Stop 04/23/17 at 03:59; Status DC Potassium Chloride (KCl Oral Soln) 40 meq 1X ONCE PEG Last administered on 20:25; Start 04/22/17 at 19:00; Stop 04/22/17 at 19:01; Status DC Comment Review of Relevant I have reviewed the following items campos (where applicable) has been applied. AI MAJANO MD Apr 23, 2017 13:48
== END 2017-04-23 14:00 | disposition hospice, home (50) | DRG 870 ==
LOC: EEVIPCON 08:32 → 1 WEST ICU 08:32
PROVIDERS: ADMIT Internal Medicine; ATTEND Internal Medicine
PROC: 5A1955Z Respiratory Ventilation, Greater than 96 Consecutive Hours (ICD-10-PCS; principal; 2017-04-16)
PROC: 0BH17EZ Insertion of Endotracheal Airway into Trachea, Via Natural or Artificial Opening (ICD-10-PCS; 2017-04-16)
PROC: 0BP1XDZ Removal of Intraluminal Device from Trachea, External Approach (ICD-10-PCS; 2017-04-23)
DX: A41.9 Sepsis, unspecified organism (principal); G93.41 Metabolic encephalopathy; J96.01 Acute respiratory failure with hypoxia; N17.0 Acute kidney failure with tubular necrosis; E87.0 Hyperosmolality and hypernatremia; A04.7 Enterocolitis due to Clostridium difficile; E03.9 Hypothyroidism, unspecified; D69.6 Thrombocytopenia, unspecified; E87.6 Hypokalemia; D63.8 Anemia in other chronic diseases classified elsewhere; G30.9 Alzheimer's disease, unspecified; F02.80 Dementia in other diseases classified elsewhere, unspecified severity, without behavioral disturbance, psychotic disturbance, mood disturbance, and anxiety; I10 Essential (primary) hypertension; I73.9 Peripheral vascular disease, unspecified; G40.901 Epilepsy, unspecified, not intractable, with status epilepticus; E86.0 Dehydration; Z66 Do not resuscitate; T68.XXXA Hypothermia, initial encounter; Z51.5 Encounter for palliative care; Z79.899 Other long term (current) drug therapy; Z79.1 Long term (current) use of non-steroidal anti-inflammatories (NSAID); Z79.2 Long term (current) use of antibiotics
CPT/HCPCS: 36415; 36600; 70450; 71010; 80048; 80202; 81001; 82805; 85007; 85027; 87040; 87070; 87086; 87186; 87205; 87324; 87641; 94002; 94003; 94640; 95816; C9113; C9254; G0481; J0360; J0696; J1630; J1650; J1940; J1953; J2543; J3370; J3480; J7030; J7040; J7042; J7050